=== PATIENT | female | born 1950 | race Caucasian/White ===

== ENCOUNTER 2018-08-22 16:12 | Inpatient (IN) | payer MEDICARE, BC ==
[~2018-08-22 16:12] MED LIST: ISOVUE-370 76%-LOCM 1 ML ONE
[2018-08-22 18:12] VITALS: BMI 19.6
[2018-08-22] MEDS ORDERED: Ondansetron PF 4 MG/2 ML Vial IVP PRN (19:37)
[2018-08-22] MEDS ORDERED: Benzonatate 100 MG CAP PO PRN (19:38)
[2018-08-22] MEDS ORDERED: Bisacodyl 5 MG TAB PO PRN (19:38)
[2018-08-22] MEDS ORDERED: cefTRIAXone\\ROCEPHIN 2 GM in Sodium Chloride 0.9% 100 ML IVPB SCH (20:00)
[2018-08-22] MEDS: cefTRIAXone\\ROCEPHIN 1 GM in Sodium Chloride 0.9% 100 ML IVPB SCH (20:14)
[2018-08-22] MEDS: Acetaminophen 500 MG TAB PO PRN (20:15)
[2018-08-22 20:24] LABS: ALT (SGPT) 9 U/L (8-55); AST (SGOT) 18 U/L (5-34); Alkaline Phosphatase 146 U/L (40-150); Anion Gap 18 mmol/L (10-20); BUN (Urea Nitrogen) 11 mg/dL (9.8-20.1); Band 27 % (5-11); Bilirubin, Total 0.7 mg/dL (0.2-1.2); Calc. Creatinine Clearance 72 mL/min (70-130); Calcium 9.7 mg/dL (7.8-10.44); Carbon Dioxide 21 mmol/L (23-31); Chloride 101 mmol/L (98-107); Estimated GFR-MDRD Greater than 90; Globulin 3.3 g/dL (2.4-3.5); Glucose 127 mg/dL (80-115); Hemoglobin 13.3 g/dL (12.0-16.0); Lymphocytes 13 % (21-51); MDiff Complete? YES; Magnesium 1.8 mg/dL (1.6-2.6); Mean Corpuscular Hemoglobin 28.2 pg (27.0-31.0); Mean Corpuscular Volume 88.2 fL (78.0-98.0); Mean Platelet Volume 7.3 fL (7.4-10.4); Monocytes 2 % (0-10); Neutrophil 58 % (42-75); Platelet Count 384 thou/uL (130-400); Platelet Morphology Comment Appears Adequate; Potassium 4.5 mmol/L (3.5-5.1); Protein, Total 7.3 g/dL (6.0-8.3); RBC Distribution Width 12.6 % (11.5-14.5); Red Blood Cell (RBC) Count 4.72 mill/uL (4.20-5.40); Sodium 135 mmol/L (136-145); White Blood Cell (WBC) Count 13.8 thou/uL (4.8-10.8)
[2018-08-22 20:45] LABS: Bilirubin Small (Negative); Blood, Urine Trace (Negative); Clarity CLEAR (Clear); Glucose, Urine (Dipstick) Negative (Negative); Leukocyte Small (Negative); Nitrite Negative (Negative); Protein, Urine (Dipstick) Negative (Neg-Trace); Specific Gravity, Urine 1.022 (1.002-1.036); pH, Urine 5.5 (5.0-9.0)
[2018-08-22] MEDS ORDERED: Lactated Ringer's 1,000 ML IV SCH (20:45)
[2018-08-22 20:47] LABS: Bacteria/HPF None Seen HPF (None Seen); Hyaline Casts/LPF 7-10 HYALINE CAST LPF (0-3 Hyaline)
[2018-08-22 20:50] LABS: Manual Microscopic Reviewed? No Path Casts Seen; Pathc Cast-AUWi Flag 2.58 (0-2.49)
[2018-08-22] MEDS ORDERED: Azithromycin 500 MG in Sodium Chloride 0.9% 250 ML 250 ML IVPB SCH (21:00)
[2018-08-22 21:01] LABS: Legionella Urinary Ag Negative (Negative); Strep pneumo Urine Ag NEGATIVE (NEGATIVE)
--- NOTE | 2018-08-22 22:38 | CT ---
CT angiogram thorax with contrast: (CTA pulmonary angiogram) HISTORY: 67-year-old female with dyspnea. TECHNIQUE: IV injection of iodinated contrast. Scan acquisition timing attempted to coincide with iodinated contrast bolus reaching maximal density in pulmonary arteries. 3-D MIP reconstructions. FINDINGS: There is a large, approximately 7.5 x 6.5 x 7.5 cm right parahilar pulmonary mass occupying and envel oping the entire right hilum, much of the central portion of the right upper lobe, causing complete occlusion of the right mainstem bronchus approximately 1 cm from the parth. The mass completely occl udes and thromboses the entire right upper lobe pulmonary artery and all of its branches there are multiple satellite irregular pulmonary nodules and surrounding interstitial pulmonary densities. Ther e is total atelectasis of the right lower lobe. There is no pulmonary thromboembolism involving the right lower lobe pulmonary artery and its branches, bilateral main pulmonary arteries, pulmonary trun k, or any of the left pulmonary artery branches. No pleural effusion. The right lower lobe total atelectasis results in cardiomediastinal shift to the right. No pneumothorax. Left lung is clear. No cardiomegaly. There is mediastinal lymphadenopathy including subcarinal lymph nodes at midline. A PET scan is recommended to determine whether or not there are malignant lymph nodes reaching the cont ralateral left side. Dr. Marrero discussed all of the relevant findings by telephone with nurse Real Ballard at 10:29 PM, then w [facility] resident Dr. Solo Leon at 10:31 PM, on 08/22/2018. IMPRESSION: 1. Large right hilar and parahilar upper lobe lung mass (evidence for primary lung cancer) 2. It is totally occluding the right lower lobe bronchus resulting in total atelectasis of right lowe r lobe. 3. It is completely occluding the right upper lobe pulmonary artery and all of its branches. 4. Multiple satellite metastatic pulmonary nodules in the right upper lobe. 5. Interstitial infiltrate surrounding the large right pulmonary mass. One possibility is lymphangiti c carcinomatosis. 6. Mediastinal lymphadenopathy.
[2018-08-22] MEDS ORDERED: Dexamethasone 4 mg/ml Vial SLOW IVP SCH (23:30)
[2018-08-23] MEDS: Lactated Ringer's 1,000 ML IV SCH ×4 (00:35→12:42)
--- NOTE | 2018-08-23 01:25 | PDOC.FPRHP ---
- History of Present Illness Chief Complaint: SOB History of Present Illness: Ms Burnett is a 67yo female with pmh hypothyroidsim, tobacco abuse, JOSEPH, prediabetes who was directly admitted from [facility] clinic for hypoxia. Wednesday started to have SOB with minimal activity. Pt was recently diagnosed with bronchitis 08/12/18 and treated with cefdinir and albuterol inhaler. Has been using q4h, some relief. Reports chills, fatigue, anorexia, sore throat, dry cough. She also reports some chest discomfort that is substernal and R sided rated 7/10 when taking a deep breath in. No other transforming factors. PCP: [facility]IL (Dr Monae) ED Course: n/a - direct admit - Allergies/Adverse Reactions Allergies Allergy/AdvReac Type Severity Reaction Status Date / Time ciprofloxacin [From Cipro] Allergy Severe Anxiety Verified 08/22/18 18:24 - Home Medications Medication Instructions Recorded Confirmed Type Albuterol Sulfate [Ventolin Hfa] 2 puff INH Q4H PRN 08/22/18 08/22/18 History Citalopram [CeleXA] 10 mg PO HS 08/22/18 08/22/18 History Cyanocobalamin 1000 MCG/ML VIA 1,000 mcg IM Q28D 08/22/18 08/22/18 History [Vitamin B-12] Levothyroxine Sodium 88 mcg PO DAILY 08/22/18 08/22/18 History Pantoprazole [Protonix] 40 mg PO DAILY 08/22/18 08/22/18 History - History PMHx: Tobacco abuse, prediabetes, solitary lung nodule, eosinophilic gastritis, hiatal hernia, JOSEPH, B12 deficiency anemia, Hypothyroidism PSHx: Appendectomy (1977), Hysterectomy (1977), B/l Mastectomy (1978), B/l salpingo-oophrectomy (1981), Anal fistula repair FHx: Mother- Crohns & Ovarian cancer Social: Retired [place]. Smokes 1/2ppd, no alcohol or drugs - Review of Systems General: reports: fatigue. denies: fever/chills Eyes: denies: eye pain, vision changes ENT: denies: nasal congestion, rhinorrhea Respiratory: reports: shortness of breath. denies: congestion Cardiovascular: reports: chest pain. denies: edema Gastrointestinal: denies: nausea, vomiting Genitourinary: denies: incontinence, dysuria Skin: denies: rashes, lesions Musculoskeletal: denies: tenderness, stiffness Neurological: denies: syncope, seizure Psychological: denies: anxiety, depression - Vital signs VITALS IN CLINIC PRIOR TO ADMIT: 88% on RA, HR 130, T 101.5 - Physical Exam Constitutional: NAD, awake, alert and oriented HEENT: EOMI, grossly normal vision, grossly normal hearing Neck: supple, trachea midline Chest: no-tender to palpation Heart: normal S1/S2, other (tachycardic) Lungs: no rales/rhonchi, no wheezing -Lungs: Decreased breath sounds/dullness to percussion/increased egophany in whole right lung field as compared to left Abdomen: soft, non-tender Musculoskeletal: normal structure, normal tone Neurological: no focal deficit, normal sensation Skin: good turgor, capillary refill <2 seconds Heme/Lymphatic: no purpura, no petechia Psychiatric: normal mood and affect, good judgment and insight FMR H&P: Results - Labs Result Diagrams: 08/22/18 19:51 08/22/18 19:51 Lab results: WBC 13.8 thou/uL (4.8-10.8) H 08/22/18 19:51 Hgb 13.3 g/dL (12.0-16.0) 08/22/18 19:51 Hct 41.6 % (36.0-47.0) 08/22/18 19:51 MCV 88.2 fL (78.0-98.0) 08/22/18 19:51 Plt Count 384 thou/uL (130-400) 08/22/18 19:51 Band Neuts % (Manual) 27 % (5-11) H 08/22/18 19:51 Sodium 135 mmol/L (136-145) L 08/22/18 19:51 Potassium 4.5 mmol/L (3.5-5.1) 08/22/18 19:51 Chloride 101 mmol/L (98-107) 08/22/18 19:51 Carbon Dioxide 21 mmol/L (23-31) L 08/22/18 19:51 BUN 11 mg/dL (9.8-20.1) 08/22/18 19:51 Creatinine 0.64 mg/dL (0.6-1.1) 08/22/18 19:51 Glucose 127 mg/dL (80-115) H 08/22/18 19:51 Calcium 9.7 mg/dL (7.8-10.44) 08/22/18 19:51 Total Bilirubin 0.7 mg/dL (0.2-1.2) 08/22/18 19:51 AST 18 U/L (5-34) 08/22/18 19:51 ALT 9 U/L (8-55) 08/22/18 19:51 Alkaline Phosphatase 146 U/L (40-150) 08/22/18 19:51 B-Natriuretic Peptide 76.1 pg/mL (0-100) 08/22/18 19:51 Serum Total Protein 7.3 g/dL (6.0-8.3) 08/22/18 19:51 Albumin 4.0 g/dL (3.4-4.8) 08/22/18 19:51 Urine Ketones 40 mg/dL (Negative) H 08/22/18 20:24 Urine Blood Trace (Negative) H 08/22/18 20:24 Urine Nitrite Negative (Negative) 08/22/18 20:24 Ur Leukocyte Esterase Small (Negative) H 08/22/18 20:24 Urine RBC 4-6 HPF (0-3) 08/22/18 20:24 Urine WBC 7-10 HPF (0-3) H 08/22/18 20:24 Ur Squamous Epith Cells 11-20 HPF (0-3) H 08/22/18 20:24 Urine Bacteria None Seen HPF (None Seen) 08/22/18 20:24 FMR H&P: A/P - Problem List (1) Hypoxia Current Visit: Yes Status: Acute Code(s): R09.02 - HYPOXEMIA (2) Anemia Current Visit: Yes Status: Acute Code(s): D64.9 - ANEMIA, UNSPECIFIED (3) Acute respiratory failure with hypoxia Current Visit: No Status: Acute Code(s): J96.01 - ACUTE RESPIRATORY FAILURE WITH HYPOXIA (4) JOSEPH (obstructive sleep apnea) Current Visit: No Status: Acute Code(s): G47.33 - OBSTRUCTIVE SLEEP APNEA ( ADULT) (PEDIATRIC) (5) Tobacco abuse Current Visit: No Status: Acute Code(s): Z72.0 - TOBACCO USE - Plan Hypoxia 2/2 pneumonia vs. malignancy vs. PE A- Physical exam is concerning for possible mass vs effusion in R lung. P- CTA chest PE protocol -procal, CBC, CMP, Mg, BMP, trops -UCx, BCx JOSEPH -bring home cpap Hypothyroid -home meds diverticulosis -MD aware pernicious anemia -home B12 CODE: DNAR FMR H&P: Upper Level - Pertinent history Patient was seen and examined and history and physical discussed with Dr Cohn on 08/22/2018. Note had been originally started in a "pre-in" visit. Since her admission is not under the "pre-in," a note was consequently delayed in opening and completion until 08/23/2018. 67 yr old female with PMH of 20+ pack year tobacco use, COPD, hypothyroidism who presents for progressively worsening dyspnea and central chest pain over the last 3 days. Patient reports the chest pain has been pretty constant and she got the most relief since being on oxygen. The pain is worse with deep inspiration and feels the worst on the right side of her chest. She has been using albuterol at home without much relief. Cough just started and is nonproductive. Denies fever at home. She was seen by Dr. Ravi in the clinic this afternoon and sent to the hospital. Her temp in clinic was 101.5. She was satting 88% on RA with a heart rate of 130. - Pertinent findings Gen: patient lying in bed without acute distress. She is pleasant Mouth: slightly dry mucous membranes, no pharyngeal erythema Neck: no cervical lymphadenopathy or thyromegaly Heart: Tachy and regular rhythm, no murmurs, rubs, gallops. Lungs: good airmovement without wheezing or rhonchi in left upper and lower lobe. Diminished/distant breath sounds in RUL/RLL but worse in RLL. E to A egophany in RLL. no rhonchi or wheezing. Abd: soft nontender. EXT: no edema in BLE, no pain or asymmetry in BLE. EKG: sinus tachycardia, QTc 435, no acute ST changes. CTA: pending WBC: 13.8 Trop: NEG BNP: 76.1 - Plan Date/Time: 08/23/18 Bere5 I, [Madeleine Carr], have evaluated this patient and agree with findings/plan as outlined by sourcing intern resident. Pertinent changes/additions are listed here. 67 yr old female with hx of COPD and tobacco abuse with fever, tachycardia, worsening dyspnea, and hypoxia. Sepsis 2/2 Community Acquired PNA -Fever to 101.5, HR 130, WBC 13.8. -diminished breath sound in RLL -pending CTA but clinically appears to be PNA -certainly high concern for PE, pending CTA -will initiate 1 lt bolus LR followed by LR @ 125 -initiate azithromycin and ceftriaxone -legionella and strep pneumo antigen urine -Procal pending -cont to monitor on tele hx of tobacco abuse -patient quit 2 months ago. hx of solitary lung nodule -patient reports that she has a lung nodule for years but has been unchanged hypothyroidism -restart home meds prediabetes -last A1C in office on 08/12/2018 was 6.1 -follow up outpatient for mgmt b12 deficiency -last B12 wnl -receives monthly B12 injection PCP: Dr. Monae Dispo: admit to inpatient telemetry and likely will require 2-3 midnights unless clinical course significantly changes. DVT ppx: SCDs and lovenox diet: regular Addendum - Attending - Attending Attestation Date/Time: 08/25/18 0033 I personally evaluated the patient and discussed the management with Dr. Leon on 08/22/18. I agree with the History, Examination, Assessment and Plan documented above with any addition or exceptions noted below. 67 y.o. WF with h/o hypothyroidsim, tobacco abuse, JOSEPH, prediabetes admitted with dyspnea, subjective fever, respiratory failure with hypoxia, with decreased lung sounds on Right lower lung. CT angio shows large compressive Right perihilar mass.
--- NOTE | 2018-08-23 04:43 | PDOC.EVN ---
Event Note - Event Note Event Note: Late entry note. The below took place on 08/22/2918 around 2245. Spoke with radiologist regarding patient's newly found lung mass. Called Dr. Estevez for recommendations and he advised to give nebulized bronchodilator treatments, decadron, and make patient NPO at Midnight. Also cont abx. Patient asleep when went to discuss findings. Will discuss in the morning. Advised nurse to call if patient wakes and asks for results.
[2018-08-23] MEDS: Levothyroxine Sodium 88 MCG TAB PO SCH (08:26)
[2018-08-23] MEDS ORDERED: Cyanocobalamin 1000 MCG/ML VIAL IM SCH (09:00)
[2018-08-23] MEDS ORDERED: Fentanyl 100 MCG/2 ML VIAL ONE (09:21)
[2018-08-23] MEDS ORDERED: Midazolam HCl 2 mg/2 ml Vial ONE ×2 (09:21→09:24)
[2018-08-23] MEDS ORDERED: Lidocaine 1% (PF) 30 ML VIAL ONE ×3 (09:24→10:32)
[2018-08-23] MEDS ORDERED: Midazolam HCl 5 mg/5 ml Vial ONE (09:24)
--- NOTE | 2018-08-23 09:29 | PDOC.FM ---
- Subjective Subjective: Patient doing well this AM. No significant events. Dr. Carr discussed results of CT scan and plan for possible bronch this AM. Patient was grateful for that conversation. She is feeling better this AM but still requiring O2. She states she has gradually been getting short of breath over the past 2 weeks. She lives at home with a cousin who is her mPOA. - Objective MAR Reviewed: Yes Vital Signs & Weight: Vital Signs (12 hours) Temp Pulse Resp BP Pulse Ox 08/23/18 08:20 99.1 F 89 18 106/64 94 L 08/23/18 07:17 80 14 08/23/18 05:00 98.3 F 84 18 110/54 L 94 L 08/23/18 00:05 96 20 92 L 08/23/18 00:00 99.3 F 75 18 105/57 L 94 L Weight Weight 55.248 kg I&O: 08/22/18 08/23/18 08/24/18 06:59 06:59 06:59 Intake Total 1770 Output Total 800 Balance 970 Result Diagrams: 08/22/18 19:51 08/22/18 19:51 EKG Reviewed by me: Yes Radiology Reviewed by me: Yes Phys Exam - Physical Examination Constitutional: NAD HEENT: moist MMs Decreased breath sounds in RLL Requiring O2 Cardiovascular: RRR 2/6 systolic murmur Gastrointestinal: soft, non-tender, no distention Musculoskeletal: no edema, pulses present Neurological: non-focal, moves all 4 limbs Psychiatric: normal affect, A&O x 3 Skin: no rash, cap refill <2 seconds Dx/Plan (1) Pneumonia Code(s): J18.9 - PNEUMONIA, UNSPECIFIED ORGANISM Status: Acute (2) Mass of upper lobe of right lung Code(s): R91.8 - OTHER NONSPECIFIC ABNORMAL FINDING OF LUNG FIELD Status: Acute (3) Anemia Code(s): D64.9 - ANEMIA, UNSPECIFIED Status: Acute (4) Acute respiratory failure with hypoxia Code(s): J96.01 - ACUTE RESPIRATORY FAILURE WITH HYPOXIA Status: Acute (5) JOSEPH (obstructive sleep apnea) Code(s): G47.33 - OBSTRUCTIVE SLEEP APNEA (ADULT) (PEDIATRIC) Status: Acute (6) Tobacco abuse Code(s): Z72.0 - TOBACCO USE Status: Acute - Plan Plan: 67 yr old female with hx of COPD and tobacco abuse with fever, tachycardia, worsening dyspnea, and hypoxia. RUL lung mass, unknown etiology -likely malignant given smoking history and additional findings on CTA mentioned below -pulm consulted; appreciate recs -plan for bronchoscopy this AM, will likely take several days to get path results -continue steroids, antibiotics -O2 PRN Sepsis likely 2/2 post-obstructive PNA -Fever to 101.5, HR 130, WBC 13.8. -diminished breath sound in RLL -CTA shows 7.5 x 6.5 x 7.5 cm RUL mass totally occluding RLL bronchus/RUL pulm aa and all branches. Total atelectasis of RLL. RUL mets. Interstitial infiltrate surrounding lung mass. Mediastinal LAD. No PE -continue IVF -continue azithromycin and ceftriaxone (08/22) -legionella and strep pneumo antigen urine neg -Procal negative at <0.5 -cont to monitor on tele hx of tobacco abuse -patient quit 2 months ago. -at risk for malignancy hx of solitary lung nodule -patient reports that she has a lung nodule for years but has been unchanged -CTA shows new findings as above hypothyroidism -continue home meds prediabetes -last A1C in office on 08/12/2018 was 6.1 -follow up outpatient for mgmt b12 deficiency -last B12 wnl -receives monthly B12 injection Dispo: Bronchoscopy this AM. Monitor respiratory status. Await results of bronch. Continue abx and steroids. Addendum - Attending - Attending Attestation Date/Time: 08/23/18 1430 I personally evaluated the patient and discussed the management with Dr. Mckenna I agree with the History, Examination, Assessment and Plan documented above with any addition or exceptions noted below- Patinet back from bronch. Feeling better but still getting SOB with speaking even. Afebrile VSS. A/P: 1) Obstructive lung mass - s/p bronch. Appreciate pulmonary recs/assistance. Pathology pending. Continue nebs, O2, abx. Will consult oncology. 2) Pneumonia - continue abx. 3) JOSEPH- continue CPAP
[2018-08-23] MEDS ORDERED: Benzocaine 20% Spray 60 ML CAN ONE (09:31)
[2018-08-23] MEDS ORDERED: EPINEPHrine 1 MG/10 ML Abboject SYRINGE ONE ×2 (10:23→15:17)
[2018-08-23] MEDS: Dexamethasone 4 mg/ml Vial SLOW IVP SCH ×2 (12:45→18:13)
[2018-08-23] MEDS ORDERED: Lidocaine 2% PF 5 ML VIAL ONE (15:17)
[2018-08-23] MEDS ORDERED: Azithromycin 250 MG in Syringe 0 ML IVPB SCH (19:45)
[2018-08-23] MEDS: Citalopram 10 MG TAB PO SCH (19:46)
[2018-08-23] MEDS: cefTRIAXone\\ROCEPHIN 1 GM in Sodium Chloride 0.9% 100 ML IVPB SCH (19:46)
[2018-08-24] MEDS: Dexamethasone 4 mg/ml Vial SLOW IVP SCH ×2 (00:14→05:24)
[2018-08-24] MEDS: Lactated Ringer's 1,000 ML IV SCH (07:50)
--- NOTE | 2018-08-24 08:09 | RAD ---
UPRIGHT PORTABLE CHEST 1 VIEW: Date: 08/24/18 HISTORY: Shortness of breath. History of breast cancer. COMPARISON: 08/22/18 CT angiogram chest. FINDINGS: There is almost total opacification of the right hemithorax with very minimal aerated lung in the rig ht upper lobe, showing worsening when compared to the 08/22/18 CT, indicating some progressive right- sided volume loss. Left lung is clear. Heart size is normal. IMPRESSION: Worsening right-sided volume loss with almost total abnormal opacification of the right hemithorax. S light hyperinflation left chest. POS: SWETA
[2018-08-24] MEDS: Levothyroxine Sodium 88 MCG TAB PO SCH (08:11)
--- NOTE | 2018-08-24 08:12 | OP ---
DATE OF PROCEDURE: 08/23/2018 PROCEDURE PERFORMED: Bronchoscopy with biopsy. INDICATION: Right lung mass. POSTBRONCHOSCOPY DIAGNOSIS: Extensive nodular friable mucosa arising from the right mainstem bronchus all the way to the right bronchus intermedius with complete occlusion of the right upper lobe bronchus, right middle lobe orifice, and marked nodularity and friability of the entire basilar segments, unable to visualize any of the subsegments consistent with extensive carcinoma involving the entire right lung starting from the level of the parth laterally. DESCRIPTION OF PROCEDURE: After informed consent, the patient received nebulized DuoNeb with 4 mL of 4% lidocaine. The right nostril was prepped with lidocaine jelly. Cetacaine spray was applied to the back of the throat. The flexible Olympus video bronchoscope 2 mm was passed via the left nostril. Pharynx, hypopharynx and vocal cords were visualized and unremarkable. On entering the trachea, parth was surprisingly sharp. Right lung initially inspected showed extensive nodular friable mucosa arising from the right mainstem bronchus on the medial wall all the way down to the basilar segments with complete occlusion of the right upper lobe bronchus, complete occlusion of the right middle lobe bronchus, and extensive friable nodular mucosa with marked narrowing and occlusion of the basilar segments. Unable to identify any of the basilar segments. There was a small pinpoint hole corresponding to the anterior basilar segments. The mucosa bled to touch. The area was lavaged with normal saline. Thereafter, the marked nodularity corresponding to the right lower lobe bronchus was biopsied multiple times and pressure obtained several times. There was some brisk bleeding, which was controlled with epinephrine with total of 1:10,000 epinephrine, total of 6 mL. The washings will be sent for cytology, AFB smear and culture, fungal smear and culture, routine Gram stain, and C and S. The biopsy will be sent for histopathology. Brushing was sent for cytology. The left lung was inspected thereafter, which showed the left upper lobe flow to be unremarkable. Bronchoscope was removed to the level of the parth. Both lungs were reinspected. The right lung was again lavaged with normal saline until completely clear. No additional bleeding was seen. Bronchoscope was removed. The patient tolerated the procedure well. BRIEF DISCHARGE NOTE: The patient tolerated the procedure well. Results will be made available to the patient and family. Further recommendation as above. Job ID: [id number]
--- NOTE | 2018-08-24 09:37 | PRG ---
DATE OF SERVICE: 08/24/2018 SUBJECTIVE: This morning, she is still having difficulty breathing. X-ray shows marked volume loss in the right lung consistent with her bronchoscopy findings, extensive right lower lobe atelectatic changes, extensive upper lobe and bronchus intermedius narrowing with abdominal mucosa. OBJECTIVE: VITAL SIGNS: Sats are 100% on 3 L, respiratory rate 18, temperature 98, and blood pressure 120/54. CHEST: Decreased breath sounds in right lung. Left unremarkable. CARDIAC: Normal S1 and S2. No gallops. ABDOMEN: No masses. ASSESSMENT: Extensive right lung cancer with marked volume loss. PLAN: P.o. prednisone. Await biopsy results. Disposition as per Oncology. Job ID: [id number]
--- NOTE | 2018-08-24 10:48 | PDOC.FM ---
- Subjective Subjective: Patient with worsening shortness of breath. She is in good spirits despite news of lung mass. She denies chest pain, N/V. She is willing to consider all options at this point in time and is open to hearing what oncology has to say. - Objective MAR Reviewed: Yes Vital Signs & Weight: Vital Signs (12 hours) Temp Pulse Resp BP Pulse Ox 08/24/18 07:46 98.6 F 91 18 112/54 L 100 08/24/18 07:45 100 08/24/18 07:02 70 12 08/24/18 04:00 73 142/66 H Weight Weight 55.248 kg I&O: 08/23/18 08/24/18 08/25/18 06:59 06:59 06:59 Intake Total 1770 2490 Output Total 800 1600 Balance 970 890 Result Diagrams: 08/22/18 19:51 08/22/18 19:51 Radiology Reviewed by me: Yes Phys Exam - Physical Examination Constitutional: NAD HEENT: moist MMs Decreased breath sounds in right lung field Short of breath with conversation Cardiovascular: RRR Gastrointestinal: soft, no distention Musculoskeletal: no edema, pulses present Neurological: non-focal, moves all 4 limbs Psychiatric: normal affect, A&O x 3 Skin: no rash, cap refill <2 seconds Dx/Plan (1) Pneumonia Code(s): J18.9 - PNEUMONIA, UNSPECIFIED ORGANISM Status: Acute (2) Mass of upper lobe of right lung Code(s): R91.8 - OTHER NONSPECIFIC ABNORMAL FINDING OF LUNG FIELD Status: Acute (3) Anemia Code(s): D64.9 - ANEMIA, UNSPECIFIED Status: Acute (4) Acute respiratory failure with hypoxia Code(s): J96.01 - ACUTE RESPIRATORY FAILURE WITH HYPOXIA Status: Acute (5) JOSEPH (obstructive sleep apnea) Code(s): G47.33 - OBSTRUCTIVE SLEEP APNEA (ADULT) (PEDIATRIC) Status: Acute (6) Tobacco abuse Code(s): Z72.0 - TOBACCO USE Status: Acute - Plan Plan: 67 yr old female with hx of COPD and tobacco abuse with fever, tachycardia, worsening dyspnea, and hypoxia. RUL lung mass s/p biopsy, likely malignancy -likely malignant given smoking history and additional findings on CTA mentioned below -pulm consulted; appreciate recs -Path results pending -continue steroids (transition to PO) -O2 with goal 88-95% O2 sat -Onc consulted; appreciate recs Sepsis likely 2/2 post-obstructive PNA, ruled out -Fever to 101.5, HR 130, WBC 13.8. -diminished breath sound in RLL; all likely related to malignancy -CTA shows 7.5 x 6.5 x 7.5 cm RUL mass totally occluding RLL bronchus/RUL pulm aa and all branches. Total atelectasis of RLL. RUL mets. Interstitial infiltrate surrounding lung mass. Mediastinal LAD. No PE -D/c fluids -D/c azithromycin and ceftriaxone (08/22-08/23) -legionella and strep pneumo antigen urine neg -Procal negative at <0.5 hx of tobacco abuse -patient quit 2 months ago. -at risk for malignancy hx of solitary lung nodule -patient reports that she has a lung nodule for years but has been unchanged -CTA shows new findings as above hypothyroidism -continue home meds prediabetes -last A1C in office on 08/12/2018 was 6.1 -follow up outpatient for mgmt b12 deficiency -last B12 wnl -receives monthly B12 injection Dispo: S/p bronchoscopy. Pending path results and oncology recs. Addendum - Attending - Attending Attestation Date/Time: 08/25/18 [id number] I personally evaluated the patient and discussed the management with Dr. Mckenna on 08/24/2018 I agree with the History, Examination, Assessment and Plan documented above with any addition or exceptions noted below- Patient still with SOB but feeling a little better. Afebrile VSS. A/P: 1) Probable lung cancer - pathology pending ; oncology consulted. Continue current meds.
[2018-08-24] MEDS ORDERED: Enoxaparin Sodium 40 MG/0.4 ML SYRINGE SC SCH (12:30)
--- NOTE | 2018-08-24 13:45 | CT ---
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 Liver: 0.6 cm diameter focal low attenuation density in the right lobe of the liver, too small to def initively characterize. Gallbladder:Unremarkable. Pancreas:Unremarkable Spleen:Unremarkable. Adrenal glands:Unremarkable. Kidneys:No acute obstruction. Several very small renal low-attenuation foci, too small to tato alva.No solid or cystic mass. No evidence for bowel obstruction. No CT evidence for acute appendicitis. The urinary bladder is unremarkable. No abscess, adenopathy, or abnormal fluid collection within the abdomen or pelvis. IMPRESSION: Extensive confluent opacity changes in the right lower lobe. Too small to characterize low-attenuatio n focus in the right lobe of the liver. Too small to characterize low-attenuation foci in the kidneys. No adenopathy or evidence for metastasis.
[2018-08-24] MEDS ORDERED: ISOVUE-370 76%-LOCM 1 ML ONE (14:39)
[2018-08-24] MEDS ORDERED: Gadobenate Dimeglumine 529 MG/1 ML (20ML VIAL) ONE (14:43)
[2018-08-24] MEDS ORDERED: PROPOFOL 200 MG/20 ML VIAL ONE (14:45)
--- NOTE | 2018-08-24 15:51 | MRI ---
MRI BRAIN WITH AND WITHOUT CONTRAST: INDICATIONS: Small cell lung cancer. Evaluate for metastases. FINDINGS: The ventricular system is normal in size. The septum pellucidum and third ventricle are midline. Th ere is no acute territorial infarction, intracranial mass effect, midline shift, or hemorrhage suscep tibility. No enhancing intraaxial lesions are evident. There is mild chronic ischemic disease. A p artially empty sella is present. IMPRESSION: No intracranial metastatic disease evident. POS: C
[2018-08-24] MEDS ORDERED: CEFAZOLIN 2 GM in Premix Bag 1 BAG IVPB SCH (16:30)
--- NOTE | 2018-08-24 16:30 | CON ---
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 HISTORY OF PRESENT ILLNESS: Ms. Burnett is a pleasant 67-year-old female with a [id number] history of smoking, who saw her primary care approximately 2 weeks ago for cough and was treated for bronchitis. She did initially improve, but then had worsening shortness of breath, so presented to the emergency room for evaluation. A CT angio of the chest revealed a large right parahilar pulmonary mass, measuring 7.5 x 6.5 x 7.5 cm. It enveloped the entire right hilum and was causing occlusion of the right mainstem bronchus, it completely occluded the right upper lobe pulmonary artery in all of its branches. There was also mediastinal lymphadenopathy. She had multiple satellite nodules in the right upper lobe. Dr. Estevez was consulted and performed a bronchoscopy. Preliminary results are consistent with small cell lung cancer. The patient has not lost any significant weight over the last several months, approximately 5 pounds. She has lost over 60 pounds over 3 years with a gluten- free diet. She denies any hemoptysis, hoarseness, or dysphagia. Quit smoking a couple of weeks ago. She does have fatigue and a decrease in ability to perform her usual daily activities. PAST MEDICAL HISTORY: 1. Hypothyroidism. 2. Pernicious anemia. 3. Tobacco use. 4. Obstructive sleep apnea. 5. Gastroesophageal reflux disease. PAST SURGICAL HISTORY: 1. Prophylactic bilateral mastectomy in 1978. 2. Appendectomy. 3. Hysterectomy. 4. Bilateral salpingo-oophorectomy. ALLERGIES: TO CIPRO. HOME MEDICATIONS: 1. Levothyroxine 88 mcg daily. 2. Protonix 40 mg daily. 3. B12 injections monthly. 4. Celexa 10 mg daily. 5. Ventolin inhaler daily. FAMILY HISTORY: Mother had ovarian cancer and Crohn disease. SOCIAL HISTORY: , lives with her cousin, [id number] history of smoking. No alcohol or illicit drug use. REVIEW OF SYSTEMS: A 10-point review of systems is negative except for noted in HPI. PHYSICAL EXAMINATION: VITAL SIGNS: Temperature 99.0, pulse is 84, respiratory rate 18, BP is 108/55, and she is 97% on 3 L. GENERAL: A well-developed, well-nourished female, in no acute distress. HEENT: Normocephalic and atraumatic. Pupils are equal and reactive to light. NECK: Supple without mass. CV: Regular rate and rhythm. LUNGS: Diminished in right side. ABDOMEN: Soft and nontender. There is no organomegaly. Bowel sounds are positive. EXTREMITIES: No clubbing, cyanosis, or edema. SKIN: No rash. HEMATOLOGIC: No petechiae or purpura. NEUROLOGIC: Nonfocal. LYMPHATIC: No palpable lymphadenopathy. PSYCHIATRIC: She is alert and oriented. PERTINENT LABS AND X-RAYS: Current WBCs are 13.8, hemoglobin 13.3, hematocrit 41.6, and platelet count is 384,000, 58% neutrophils, 27% bands, 13% lymphocytes. Sodium is 135, potassium 4.5, chloride 101, CO2 is 21, BUN is 11, creatinine 0.64, calcium is 9.7, magnesium 1.8, bilirubin 0.7, AST is 18, ALT is 9, and alkaline phosphatase is 146. Troponin is negative. BNP is 76. Serum total protein 7.3, albumin 4.0 , globulin 33. Urine is negative for bacteria, pneumonia, negative, radiology per HPI. ASSESSMENT: Probable small cell lung cancer. DISCUSSION: The case was discussed with Dr. Chahal. We will wait for final confirmation of small cell lung cancer in anticipation of inpatient chemotherapy. We will transfer the patient to Oncology. Plan to complete staging with a brain MRI and a CT of her abdomen. This was discussed in detail with the patient, who agrees with the plan. Thank you for the consult. We are happy to take care of this nice lady. Job ID: [id number] MTDD
[2018-08-24] MEDS: Mometasone/Formoterol 120 PUFF INHALER INH SCH (18:16)
[2018-08-24] MEDS: Acetaminophen 500 MG TAB PO PRN (18:18)
[2018-08-24] MEDS: Citalopram 10 MG TAB PO SCH (21:55)
[2018-08-24] MEDS: cefTRIAXone\\ROCEPHIN 1 GM in Sodium Chloride 0.9% 100 ML IVPB SCH (21:56)
--- NOTE | 2018-08-24 22:58 | HP ---
HISTORY OF PRESENT ILLNESS: Ava Burnett is a 67-year-old female discovered to have a lung cancer with encasement of the pulmonary artery and Dr. Chahal asked me to see her regarding placement of a MediPort to initiate antineoplastic chemotherapy access tomorrow. We will plan placement of MediPort tomorrow. She can continue her prophylactic subcutaneous Lovenox. ALLERGIES: CIPRO. SOCIAL HISTORY: Tobacco abuse in the past. Cessation several months ago. Alcohol, rarely. MEDICATIONS: 1. Ventolin inhaler. 2. Celexa. 3. Protonix. 4. Vitamin B12. PAST SURGICAL HISTORY: Anal fissure, right mastectomy and reconstruction using the implant for fibrocystic disease, hysterectomy, appendectomy. PAST MEDICAL HISTORY: COPD, lung cancer, eosinophilic gastritis, hiatal hernia, sleep apnea, B12 deficiency, hypothyroidism. PHYSICAL EXAMINATION: VITAL SIGNS: Height 5 feet 6 inches, weight 121 pounds, 19 BMI. Heart rate 83, respiratory rate . HEAD, EARS, EYES, NOSE, AND THROAT: Unremarkable. LUNGS: Clear to consultation. CARDIAC: Regular rate and rhythm without murmur or gallop. ABDOMEN: Soft, nontender. EXTREMITIES: Unremarkable. 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 We will plan placement of MediPort tomorrow. Risks and benefits discussed. Questions were answered. Job ID: [id number]
[2018-08-25] MEDS: Mometasone/Formoterol 120 PUFF INHALER INH SCH ×2 (07:46→18:34)
[2018-08-25] MEDS ORDERED: Lactated Ringer's 1,000 ML IV SCH (08:00)
[2018-08-25] MEDS: predniSONE 20 MG TAB PO SCH (08:29)
[2018-08-25] MEDS: Levothyroxine Sodium 88 MCG TAB PO SCH (08:29)
[2018-08-25] MEDS ORDERED: Enoxaparin Sodium 40 MG/0.4 ML SYRINGE SC SCH (09:00)
--- NOTE | 2018-08-25 09:21 | PDOC.FM ---
- Subjective Subjective: Patient doing well this AM. No significant overnight events. Patient has spoken to Onc and Gen surg. Patient has plans for Mediport this AM with Dr. Gipson and chemo during this hospitalization. Patient reports that her shortness of breath is a little improved compared to yesterday, but she still gets winded at rest. She denies chest pain, palpitations, N/V. - Objective MAR Reviewed: Yes Vital Signs & Weight: Vital Signs (12 hours) Temp Pulse Resp BP Pulse Ox 08/25/18 08:33 97.8 F 86 18 121/60 93 L 08/25/18 07:37 94 L 08/25/18 07:36 79 16 94 L 08/25/18 05:09 98.1 F 74 20 117/58 L 96 08/25/18 00:51 68 16 93 L 08/25/18 00:12 98.8 F 71 18 127/63 95 Weight Weight 55.15 kg I&O: 08/24/18 08/25/18 08/26/18 06:59 06:59 06:59 Intake Total 2490 490 Output Total 1600 Balance 890 490 Result Diagrams: 08/22/18 19:51 08/22/18 19:51 EKG Reviewed by me: Yes Radiology Reviewed by me: Yes Phys Exam - Physical Examination Constitutional: NAD HEENT: moist MMs Decreased breath sounds RLL Cardiovascular: RRR, no significant murmur Gastrointestinal: soft, no distention Musculoskeletal: no edema, pulses present Neurological: non-focal, moves all 4 limbs Psychiatric: normal affect, A&O x 3 Skin: no rash, cap refill <2 seconds Dx/Plan (1) Pneumonia Code(s): J18.9 - PNEUMONIA, UNSPECIFIED ORGANISM Status: Acute (2) Mass of upper lobe of right lung Code(s): R91.8 - OTHER NONSPECIFIC ABNORMAL FINDING OF LUNG FIELD Status: Acute (3) Anemia Code(s): D64.9 - ANEMIA, UNSPECIFIED Status: Acute (4) Acute respiratory failure with hypoxia Code(s): J96.01 - ACUTE RESPIRATORY FAILURE WITH HYPOXIA Status: Acute (5) JOSEPH (obstructive sleep apnea) Code(s): G47.33 - OBSTRUCTIVE SLEEP APNEA (ADULT) (PEDIATRIC) Status: Acute (6) Tobacco abuse Code(s): Z72.0 - TOBACCO USE Status: Acute - Plan Plan: 67 yr old female with hx of COPD and tobacco abuse with fever, tachycardia, worsening dyspnea, and hypoxia. Small cell carcinoma of lung -pulm consulted; appreciate recs -onc consulted; appreciate recs -gen surg consulted; appreciate recs -Path results show small cell carcinoma -continue PO steroids -O2 with goal 88-95% O2 sat -plan for Mediport today and chemo during this hospitalization -s/p bronchoscopy with biopsy Sepsis possibly 2/2 post-obstructive PNA -Fever to 101.5, HR 130, WBC 13.8. -diminished breath sound in RLL; all likely related to malignancy -CTA shows 7.5 x 6.5 x 7.5 cm RUL mass totally occluding RLL bronchus/RUL pulm aa and all branches. Total atelectasis of RLL. RUL mets. Interstitial infiltrate surrounding lung mass. Mediastinal LAD. No PE -continue ceftriaxone (08/22) hx of tobacco abuse -patient quit 2 months ago. -at risk for malignancy; small cell carcinoma of lung hx of solitary lung nodule -patient reports that she has a lung nodule for years but has been unchanged -CTA shows new findings as above hypothyroidism -continue home meds prediabetes -last A1C in office on 08/12/2018 was 6.1 -follow up outpatient for mgmt b12 deficiency -last B12 wnl -receives monthly B12 injection Dispo: Stable. Plan for mediport today and chemo during this hospitalization. Addendum - Attending - Attending Attestation Date/Time: 08/25/18 1030 I personally evaluated the patient and discussed the management with Dr. Mckenna. I agree with the History, Examination, Assessment and Plan documented above with any addition or exceptions noted below. Patient here with complete atelectasis of R lung due to mass that is now known to be small cell lung carcinoma. She is going for Mediport today and will start chemotherapy tomorrow per Oncology. Continue O2 therapy as needed and pain control as needed. Further mgmt and recs per Oncology after chemo initiation.
--- NOTE | 2018-08-25 09:24 | PRG ---
DATE OF SERVICE: 08/25/2018 SUBJECTIVE: This morning, 67-year-old female. She is awake, alert, and responsive, in no respiratory distress. OBJECTIVE: VITAL SIGNS: Saturations are 97 on 2 L, respirations 18, temperature 97, pulse 86, blood pressure 121/60. CHEST: Decreased breath sounds on right lung. Left unremarkable. CARDIAC: Normal S1, S2. No gallops. ABDOMEN: No masses. DIAGNOSTIC STUDIES: She had an MRI of the brain, which was negative. She had a CT of the abdomen, which shows no obvious metastasis, possibly some liver abnormality. IMPRESSION: Small cell carcinoma appears to be limited to the chest at this stage. PLAN: She is going to have MediPort chemotherapy. She is to refrain from smoking. Continue antibiotics. Maybe switched over to oral. We will follow. Job ID: [id number]
[2018-08-25] MEDS ORDERED: Fentanyl 100 MCG/2 ML VIAL ONE (11:25)
[2018-08-25] MEDS ORDERED: Midazolam HCl 2 mg/2 ml Vial ONE (11:25)
[2018-08-25] MEDS ORDERED: Ketamine 50 MG/ML (10ML VIAL) ONE (11:26)
[2018-08-25] MEDS ORDERED: Propofol 500 MG/50 ML VIAL ONE (11:26)
[2018-08-25] MEDS ORDERED: Lidocaine 2% PF 5 ML VIAL ONE (11:52)
[2018-08-25] MEDS ORDERED: Bupivacaine HCl 0.5%/Epinephrine 1:200,000/PF 30 ml Vial ONE (11:52)
[2018-08-25] MEDS ORDERED: traMADol HCl 50 MG TAB PO PRN ×2 (13:02)
--- NOTE | 2018-08-25 13:07 | RAD ---
XR Chest 1 View Portable HISTORY:Pleural effusion. Mediport line placement. COMPARISON: Prior day study. FINDINGS: The right hemithorax is now completely opacified. A right-sided Mediport catheter seen. Cat heter tip overlies the region of the right hilum secured. The left lung is clear. IMPRESSION: Right-sided Mediport catheter has been placed since the previous exam. The right hemithor ax is now completely opacified.
--- NOTE | 2018-08-25 14:52 | OP ---
DATE OF PROCEDURE: 08/25/2018 PREOPERATIVE DIAGNOSES: 1. Small-cell carcinoma of the lung, metastatic. 2. Antineoplastic chemotherapy access. POSTOPERATIVE DIAGNOSES: 1. Small-cell carcinoma of the lung, metastatic. 2. Antineoplastic chemotherapy access. PROCEDURE PERFORMED: Placement of a slimline right subclavian vein low-profile MediPort power. ANESTHESIA: Intravenous sedation, local 0.5% Marcaine with epinephrine 30 mL mixed to 2% Xylocaine 10 mL. Fluoroscopy used for 5 seconds. DESCRIPTION OF PROCEDURE: The patient was taken to the operating room, where under intravenous sedation, neck and chest prepared with ChloraPrep and draped in routine fashion. Trocar and catheter were introduced, obtaining good routine venous blood from the subclavian vein, J-wire threaded, trocar and catheter removed. Skin site was enlarged sharply and a subcutaneous pocket developed with sharp and blunt dissection using cautery for hemostasis. Dilator and port sheath placed with J-wire into the subclavian vein and dilator and J-wire were removed. Catheter placed with Peel-Away sheath. Peel-Away sheath removed. Catheter under fluoroscopic visualization properly positioned, tip in the superior vena cava. The catheter tailored to the appropriate length and connected to the MediPort with the connecting device, which was placed in subcutaneous pocket and secured with 2 interrupted suture of 3-0 Prolene and subcutaneous tissue was approximated with 3-0 Monocryl, skin with subdermal 4-0 Monocryl. Final fluoroscopic images revealed good line placement. Dermabond applied. Morgan needle accessed the port and aspirated blood, flushed with heparinized saline solution. The port left accessed for use today. The patient tolerated the procedure well. Job ID: [id number]
[2018-08-25] MEDS ORDERED: Palonosetron HCl 0.25 MG in Sodium Chloride 0.9% 50 ML IVPB SCH (15:00)
[2018-08-25] MEDS ORDERED: Dexamethasone 10 MG in Sodium Chloride 0.9% 50 ML IVPB SCH (15:00)
[2018-08-25] MEDS ORDERED: CARBOPLATIN IVPB SCH (15:30)
[2018-08-25] MEDS ORDERED: SODIUM CHLORIDE 0.9% IVPB SCH (15:30)
[2018-08-25] MEDS: ETOPOSIDE IVPB SCH (18:49)
[2018-08-25] MEDS: SODIUM CHLORIDE 0.9% IVPB SCH (18:49)
[2018-08-25] MEDS: Citalopram 10 MG TAB PO SCH (20:23)
[2018-08-25] MEDS: Acetaminophen 500 MG TAB PO PRN (20:23)
[2018-08-25] MEDS: cefTRIAXone\\ROCEPHIN 1 GM in Sodium Chloride 0.9% 100 ML IVPB SCH (20:23)
[2018-08-26] MEDS: Mometasone/Formoterol 120 PUFF INHALER INH SCH ×2 (07:11→18:56)
[2018-08-26 09:08] LABS: #Basophils 0.1 thou/uL (0.0-0.2); #Lymphocytes 1.3 thou/uL (1.20-3.40); #Neutrophils 6.6 thou/uL (1.40-6.50); %Basophils 1.1 % (0.0-1.0); %Eosinophils 0.2 % (0.0-10.0); %Lymphocytes 14.7 % (21.0-51.0); %Monocytes 11.2 % (0.0-10.0); %Neutrophils 72.8 % (42.0-75.0); Hemoglobin 12.5 g/dL (12.0-16.0); Mean Corpuscular HGB CONC 32.3 g/dL (32.0-36.0); Mean Corpuscular Volume 89.6 fL (78.0-98.0); Mean Platelet Volume 6.8 fL (7.4-10.4); Platelet Count 391 thou/uL (130-400); RBC Distribution Width 12.5 % (11.5-14.5); Red Blood Cell (RBC) Count 4.31 mill/uL (4.20-5.40)
[2018-08-26 09:24] LABS: Albumin 3.6 g/dL (3.4-4.8); Bilirubin, Total 0.4 mg/dL (0.2-1.2); Calcium 9.7 mg/dL (7.8-10.44); Carbon Dioxide 24 mmol/L (23-31); Globulin 3.2 g/dL (2.4-3.5); Glucose 141 mg/dL (80-115); Protein, Total 6.8 g/dL (6.0-8.3)
[2018-08-26 09:25] LABS: Alkaline Phosphatase 95 U/L (40-150)
[2018-08-26 09:26] LABS: BUN (Urea Nitrogen) 15 mg/dL (9.8-20.1); Calc. Creatinine Clearance 83 mL/min (70-130); Estimated GFR-MDRD Greater than 90
[2018-08-26 09:27] LABS: AST (SGOT) 10 U/L (5-34)
[2018-08-26 09:28] LABS: ALT (SGPT) 9 U/L (8-55)
[2018-08-26] MEDS: Enoxaparin Sodium 80 MG/0.8 ML SYRINGE SC SCH (09:33)
[2018-08-26] MEDS: predniSONE 20 MG TAB PO SCH (09:33)
[2018-08-26] MEDS: Levothyroxine Sodium 88 MCG TAB PO SCH (09:33)
[2018-08-26 09:35] LABS: Anion Gap 13 mmol/L (10-20); Chloride 101 mmol/L (98-107); Potassium 4.1 mmol/L (3.5-5.1); Sodium 133 mmol/L (136-145)
--- NOTE | 2018-08-26 09:39 | PDOC.FM ---
- Subjective Subjective: Patient doing well this AM. No significant overnight events. Patient started chemo yesterday. Her breathing is stable. She got her mediport yesterday. Plan is to get chemo in hospital over the course of the next few days. - Objective MAR Reviewed: Yes Vital Signs & Weight: Vital Signs (12 hours) Temp Pulse Resp BP Pulse Ox 08/26/18 08:04 98.3 F 75 18 114/59 L 94 L 08/26/18 07:18 92 L 08/26/18 07:17 76 16 92 L 08/26/18 07:11 76 16 92 L 08/26/18 04:00 98.3 F 75 20 130/64 95 08/26/18 00:14 76 16 08/25/18 23:33 97.4 F L 62 16 131/71 93 L Weight Weight 58.513 kg I&O: 08/25/18 08/26/18 08/27/18 06:59 06:59 06:59 Intake Total 490 1375 Balance 490 1375 Result Diagrams: 08/26/18 08:56 08/26/18 08:56 EKG Reviewed by me: Yes Radiology Reviewed by me: Yes Phys Exam - Physical Examination Constitutional: NAD HEENT: moist MMs Decreased breath sounds right lung (improved from prior exam) Cardiovascular: RRR, no significant murmur Gastrointestinal: soft, no distention Musculoskeletal: no edema, pulses present Neurological: non-focal, moves all 4 limbs Psychiatric: normal affect, A&O x 3 Skin: no rash, cap refill <2 seconds Dx/Plan (1) Pneumonia Code(s): J18.9 - PNEUMONIA, UNSPECIFIED ORGANISM Status: Acute (2) Mass of upper lobe of right lung Code(s): R91.8 - OTHER NONSPECIFIC ABNORMAL FINDING OF LUNG FIELD Status: Acute (3) Anemia Code(s): D64.9 - ANEMIA, UNSPECIFIED Status: Acute (4) Acute respiratory failure with hypoxia Code(s): J96.01 - ACUTE RESPIRATORY FAILURE WITH HYPOXIA Status: Acute (5) JOSEPH (obstructive sleep apnea) Code(s): G47.33 - OBSTRUCTIVE SLEEP APNEA (ADULT) (PEDIATRIC) Status: Acute (6) Tobacco abuse Code(s): Z72.0 - TOBACCO USE Status: Acute - Plan Plan: 67 yr old female with hx of COPD and tobacco abuse with fever, tachycardia, worsening dyspnea, and hypoxia. Small cell carcinoma of lung -pulm consulted; appreciate recs -onc consulted; appreciate recs -gen surg consulted; appreciate recs -Path results show small cell carcinoma -continue PO steroids -O2 with goal 88-95% O2 sat -pt with mediport placement yesterday; started chemo yesterday -s/p bronchoscopy with biopsy which shows small cell carcinoma -plan for chemo over next few days per onc Sepsis possibly 2/2 post-obstructive PNA -Fever to 101.5, HR 130, WBC 13.8. -diminished breath sound in RLL; all likely related to malignancy -CTA shows 7.5 x 6.5 x 7.5 cm RUL mass totally occluding RLL bronchus/RUL pulm aa and all branches. Total atelectasis of RLL. RUL mets. Interstitial infiltrate surrounding lung mass. Mediastinal LAD. No PE -continue ceftriaxone (08/22); consider switching to PO abx hx of tobacco abuse -patient quit 2 months ago. -at risk for malignancy; small cell carcinoma of lung hx of solitary lung nodule -patient reports that she has a lung nodule for years but has been unchanged -CTA shows new findings as above hypothyroidism -continue home meds prediabetes -last A1C in office on 08/12/2018 was 6.1 -follow up outpatient for mgmt b12 deficiency -last B12 wnl -receives monthly B12 injection Dispo: Stable. s/p mediport. Started chemo yesterday. Continue inpatient chemo per Onc. Addendum - Attending - Attending Attestation Date/Time: 08/26/18 1043 I personally evaluated the patient and discussed the management with Dr. Mckenna I agree with the History, Examination, Assessment and Plan documented above with any addition or exceptions noted below - Ptaient reports feeling a little better. Was able to ambulate to the bathroom but still SOB. Afebrile VSS. A/P: 1 ) Small cell lung cancer - started on chemotherapy; appreciate oncology recommendations. Will evaluate for home O2. 2) Pneumonia - continue abx and steroids.
[2018-08-26 10:18] LABS: Fungus Stain Final report (.)
--- NOTE | 2018-08-26 11:00 | PRG ---
DATE OF SERVICE: 08/26/2018 SUBJECTIVE: This morning, she is better, less shortness of breath, less cough. Status post chemotherapy. OBJECTIVE: VITAL SIGNS: Sats are 94% on 2 L, temperature 98, pulse 75, respirations 18, and blood pressure 114/59. CHEST: Decreased breath sounds on right lung. Left unremarkable. CARDIAC: Normal S1 and S2. No gallops. ABDOMEN: No masses. IMPRESSION: Right lung atelectasis, small-cell cancer, chronic obstructive pulmonary disease, tobacco abuse, and hyponatremia. PLAN: Chemotherapy as per Oncology. Disposition as per Oncology. Pulmonary will follow while in the hospital. She may require low-flow O2 and neb machine at home. Job ID: [id number]
--- NOTE | 2018-08-26 13:24 | PRG ---
DATE OF SERVICE: 08/26/2018 Ms. Burnett is doing well today. Her MediPort is functioning well. She will see me in the office as needed. If she has any trouble with her MediPort or concerns about her wound, she will call me. Job ID: [id number]
[2018-08-26] MEDS: ETOPOSIDE IVPB SCH (16:09)
[2018-08-26] MEDS: SODIUM CHLORIDE 0.9% IVPB SCH (16:09)
[2018-08-26] MEDS: Citalopram 10 MG TAB PO SCH (21:22)
--- NOTE | 2018-08-27 06:22 | PDOC.FM ---
- Subjective Subjective: Patient reports feeling well this AM. Endorses some SOB and hand numbness/ tingling but denies any N/V/D, chest pain or fever or chills as well. Does endorse some constipation. - Objective MAR Reviewed: Yes Vital Signs & Weight: Vital Signs (12 hours) Temp Pulse Resp BP Pulse Ox 08/27/18 04:00 98.6 F 68 16 116/56 L 93 L 08/27/18 00:47 72 16 08/26/18 23:34 98.4 F 72 16 117/58 L 94 L 08/26/18 20:00 98.5 F 85 16 100/53 L 94 L 08/26/18 18:55 79 16 94 L Weight Weight 58.332 kg I&O: 08/25/18 08/26/18 08/27/18 06:59 06:59 06:59 Intake Total 490 1375 Balance 490 1375 Result Diagrams: 08/27/18 06:24 08/27/18 06:24 Phys Exam - Physical Examination Constitutional: NAD HEENT: moist MMs, sclera anicteric Neck: supple, full ROM Respiratory: no wheezing, no rales, no rhonchi, clear to auscultation bilateral Cardiovascular: RRR, no significant murmur Musculoskeletal: no edema Neurological: non-focal, moves all 4 limbs Psychiatric: normal affect, A&O x 3 Skin: no rash, normal turgor, cap refill <2 seconds Dx/Plan (1) Small cell carcinoma of right lung Code(s): C34.91 - MALIGNANT NEOPLASM OF UNSP PART OF RIGHT BRONCHUS OR LUNG Status: Acute (2) Anemia Code(s): D64.9 - ANEMIA, UNSPECIFIED Status: Acute (3) Hypoxia Code(s): R09.02 - HYPOXEMIA Status: Chronic (4) Mass of upper lobe of right lung Code(s): R91.8 - OTHER NONSPECIFIC ABNORMAL FINDING OF LUNG FIELD Status: Acute (5) JSOEPH (obstructive sleep apnea) Code(s): G47.33 - OBSTRUCTIVE SLEEP APNEA (ADULT) (PEDIATRIC) Status: Chronic - Plan Plan: 67 yr old female with hx of COPD and tobacco abuse with fever, tachycardia, worsening dyspnea, and hypoxia found to have SCC of the R lung. Small cell carcinoma of lung -s/p bronchoscopy with biopsy which shows small cell carcinoma -pulm consulted; appreciate recs -onc consulted; appreciate recs -gen surg consulted; appreciate recs -continue PO steroids -O2 sat goal of 88-95% -pt is s/p mediport placement & started chemo 2 days ago -plan for chemo over next few days in the hospital per onc Sepsis possibly 2/2 post-obstructive PNA, improving -Fever to 101.5, HR 130, & WBC 13.8 on admission but no fever since & HD stable. -diminished breath sound in RLL markedly improved; all likely related to malignancy - CTA shows 7.5 x 6.5 x 7.5 cm RUL mass totally occluding RLL bronchus/RUL pulm aa and all branches. Total atelectasis of RLL. RUL mets. Interstitial infiltrate surrounding lung mass. Mediastinal LAD. No PE. - Will switch to PO abx today & continue for 3 more days to complete a 7 day course. hx of tobacco abuse -patient quit 2 months ago. -at risk for malignancy; small cell carcinoma of lung hx of solitary lung nodule -patient reports that she has a lung nodule for years but has been unchanged -CTA shows new findings as above hypothyroidism -continue home meds prediabetes -last A1C in office on 08/12/2018 was 6.1 -follow up outpatient for mgmt b12 deficiency -last B12 wnl -receives monthly B12 injection Constipation - Will add PRN miralax QD. Dispo: Stable. s/p mediport placement 2 days ago. Will continue inpatient chemo likely through Wednesday per Onc recs. Addendum - Attending - Attending Attestation Date/Time: 08/27/18 1131 I personally evaluated the patient and discussed the management with Dr. Gale. I agree with the History, Examination, Assessment and Plan documented above with any addition or exceptions noted below. The patient notes some tingling in her fingers since starting chemo. She also complains of constipation. Will add miralalx. F/u with oncology recs.
[2018-08-27 06:39] LABS: #Eosinphils 0.1 thou/uL (0.0-0.7); #Lymphocytes 2.1 thou/uL (1.20-3.40); #Monocytes 0.9 thou/uL (0.11-0.59); #Neutrophils 5.4 thou/uL (1.40-6.50); %Basophils 0.2 % (0.0-1.0); %Eosinophils 1.7 % (0.0-10.0); %Lymphocytes 24.4 % (21.0-51.0); %Monocytes 10.3 % (0.0-10.0); %Neutrophils 63.4 % (42.0-75.0); Hemoglobin 12.3 g/dL (12.0-16.0); Mean Corpuscular HGB CONC 33.2 g/dL (32.0-36.0); Mean Corpuscular Hemoglobin 29.7 pg (27.0-31.0); Mean Corpuscular Volume 89.6 fL (78.0-98.0); Mean Platelet Volume 6.9 fL (7.4-10.4); Platelet Count 375 thou/uL (130-400); RBC Distribution Width 12.5 % (11.5-14.5); Red Blood Cell (RBC) Count 4.14 mill/uL (4.20-5.40); White Blood Cell (WBC) Count 8.5 thou/uL (4.8-10.8)
[2018-08-27 07:01] LABS: ALT (SGPT) 7 U/L (8-55); AST (SGOT) 10 U/L (5-34); Albumin 3.5 g/dL (3.4-4.8); Alkaline Phosphatase 83 U/L (40-150); Anion Gap 12 mmol/L (10-20); BUN (Urea Nitrogen) 13 mg/dL (9.8-20.1); Bilirubin, Total 0.6 mg/dL (0.2-1.2); Calc. Creatinine Clearance 84 mL/min (70-130); Calcium 9.4 mg/dL (7.8-10.44); Carbon Dioxide 27 mmol/L (23-31); Chloride 100 mmol/L (98-107); Estimated GFR-MDRD Greater than 90; Globulin 3.1 g/dL (2.4-3.5); Glucose 96 mg/dL (80-115); Potassium 3.9 mmol/L (3.5-5.1); Protein, Total 6.6 g/dL (6.0-8.3); Sodium 135 mmol/L (136-145)
[2018-08-27] MEDS: Mometasone/Formoterol 120 PUFF INHALER INH SCH ×2 (07:28→18:44)
[2018-08-27] MEDS ORDERED: Polyethylene Glycol 3350 17 GM Packet PO PRN (08:19)
[2018-08-27] MEDS: predniSONE 20 MG TAB PO SCH (08:54)
[2018-08-27] MEDS: Enoxaparin Sodium 80 MG/0.8 ML SYRINGE SC SCH (08:54)
[2018-08-27] MEDS: Levothyroxine Sodium 88 MCG TAB PO SCH (08:54)
[2018-08-27] MEDS: Cefdinir 300 MG CAP PO SCH ×2 (08:54→20:29)
--- NOTE | 2018-08-27 13:42 | PRG ---
DATE OF SERVICE: 08/27/2018 SUBJECTIVE: This morning, she is better, less short of breath. OBJECTIVE: VITAL SIGNS: Saturations are 92% on 3 L, respiratory rate 14, temperature 98, and blood pressure 139/71. CHEST: Decreased breath sounds without any wheezing. CARDIAC: Normal S1 and S2. No gallops. ABDOMEN: No masses. LABORATORY DATA: Unremarkable. ASSESSMENT: Status post chemotherapy for extensive small cell carcinoma. PLAN: PT, supportive care. DISPOSITION: As per Oncology. Job ID: [id number]
[2018-08-27] MEDS: ETOPOSIDE IVPB SCH (16:03)
[2018-08-27] MEDS: SODIUM CHLORIDE 0.9% IVPB SCH (16:03)
[2018-08-27] MEDS: Citalopram 10 MG TAB PO SCH (20:29)
--- NOTE | 2018-08-28 06:07 | PDOC.FM ---
- Subjective Subjective: NAEO. Patient reports that she feels well this AM. Reports improvement in her breathing and denies any fever/chills, N/V/D. Does endorse some constipation and numbness in her hands. - Objective MAR Reviewed: Yes Vital Signs & Weight: Vital Signs (12 hours) Temp Pulse Resp BP Pulse Ox 08/27/18 23:19 65 18 93 L 08/27/18 20:00 98 F 70 20 110/62 96 08/27/18 18:40 69 16 93 L Weight Weight 58.332 kg I&O: 08/26/18 08/27/18 08/28/18 06:59 06:59 06:59 Intake Total 1375 1730 Balance 1375 1730 Result Diagrams: 08/27/18 06:24 08/27/18 06:24 Phys Exam - Physical Examination Constitutional: NAD HEENT: moist MMs, sclera anicteric Neck: supple, full ROM Respiratory: no wheezing, no rales, no rhonchi, clear to auscultation bilateral (with slightly decreased breath sounds in RLL) Cardiovascular: RRR, no significant murmur Neurological: non-focal, moves all 4 limbs Psychiatric: normal affect, A&O x 3 Skin: no rash, normal turgor Dx/Plan (1) Small cell carcinoma of right lung Code(s): C34.91 - MALIGNANT NEOPLASM OF UNSP PART OF RIGHT BRONCHUS OR LUNG Status: Acute (2) Anemia Code(s): D64.9 - ANEMIA, UNSPECIFIED Status: Acute (3) Hypoxia Code(s): R09.02 - HYPOXEMIA Status: Chronic (4) Mass of upper lobe of right lung Code(s): R91.8 - OTHER NONSPECIFIC ABNORMAL FINDING OF LUNG FIELD Status: Acute (5) JOSEPH (obstructive sleep apnea) Code(s): G47.33 - OBSTRUCTIVE SLEEP APNEA (ADULT) (PEDIATRIC) Status: Chronic - Plan Plan: 67 yr old female with hx of COPD and tobacco abuse with fever, tachycardia, worsening dyspnea, and hypoxia found to have SCC of the R lung. Small cell carcinoma of lung -s/p bronchoscopy with biopsy which shows small cell carcinoma -pulm consulted; appreciate recs -onc consulted; appreciate recs -gen surg consulted; appreciate recs -continue PO steroids -O2 sat within goal of 88-95% on 2.5L NC -pt is s/p mediport placement & started chemo 3 days ago -plan for likely discharge home today following her chemo treatment per onc according to patient Sepsis possibly 2/2 post-obstructive PNA, resolved -Fever to 101.5, HR 130, & WBC 13.8 on admission but no fever since & HD stable. -diminished breath sound in RLL markedly improved; all likely related to malignancy -CTA shows 7.5 x 6.5 x 7.5 cm RUL mass totally occluding RLL bronchus/RUL pulm aa and all branches. Total atelectasis of RLL. RUL mets. Interstitial infiltrate surrounding lung mass. Mediastinal LAD. No PE. - Will continue PO abx for 2 more days to complete a 7 day course. hx of tobacco abuse -patient quit 2 months ago. -at risk for malignancy; small cell carcinoma of lung hx of solitary lung nodule -patient reports that she has a lung nodule for years but has been unchanged -CTA shows new findings as above hypothyroidism -continue home meds prediabetes -last A1C in office on 08/12/2018 was 6.1 -follow up outpatient for mgmt b12 deficiency -last B12 wnl -receives monthly B12 injection Constipation - Will add PRN miralax QD to stool softener. Dispo: Stable. s/p mediport placement 3 days ago. Will likely go home today with close follow-up with Onc & radiation-oncology upon discharge. Addendum - Attending - Attending Attestation Date/Time: 08/28/18 1210 I personally evaluated the patient and discussed the management with Dr. Gale. I agree with the History, Examination, Assessment and Plan documented above with any addition or exceptions noted below. Pt is feeling much better. Still with constipation this morning but will take miralax again. She has been cleared for d/c this afternoon after an injection by oncology. Arranging home O2.
[2018-08-28] MEDS: Mometasone/Formoterol 120 PUFF INHALER INH SCH (06:29)
[2018-08-28] MEDS: Enoxaparin Sodium 80 MG/0.8 ML SYRINGE SC SCH (08:22)
[2018-08-28] MEDS: Cefdinir 300 MG CAP PO SCH (08:22)
[2018-08-28] MEDS: Levothyroxine Sodium 88 MCG TAB PO SCH (08:22)
[2018-08-28] MEDS: predniSONE 20 MG TAB PO SCH (08:22)
[2018-08-28 08:23] VITALS: BP 100/60; TEMP 97.5
[2018-08-28] MEDS ORDERED: PEGFILGRASTIM-JMDB 6 MG/0.6 ML SYRINGE SQ SCH (09:00)
--- NOTE | 2018-08-28 13:33 | PRG ---
DATE OF SERVICE: 08/28/2018 SUBJECTIVE: Status post chemo for small cell lung cancer, COPD. OBJECTIVE: VITAL SIGNS: Sats 94% on 2 L, respiratory rate 18, temperature 97, and blood pressure 100/60. GENERAL: No complaints. CHEST: Decreased breath sounds. No wheezing. CARDIAC: Normal S1 and S2. No gallops. ABDOMEN: Soft. ASSESSMENT: Extensive right lung cancer with marked obstruction, chronic obstructive pulmonary disease, sleep apnea. Disposition, primary care physician. Outpatient radiation therapy. PLAN: Continue nebs. Supportive care. Job ID: [id number]
--- NOTE | 2018-08-29 07:21 | DIS ---
DATE OF ADMISSION: 08/22/2018 DATE OF DISCHARGE: 08/28/2018 ADMITTING ATTENDING: Dr. Macrina Ravi. DISCHARGE ATTENDING: Dr. Masha Delgado. CONSULTS: 1. Pulmonology, Dr. Michele Estevez. 2. Oncology, Dr. Florencio Chahal. 3. General surgery, Dr. Mustapha Gipson. PROCEDURES: 1. Chest/thorax CTA on 08/22/2018, which noted a large right hilar and perihilar upper lobe lung mass (evidence for primary lung cancer), which is totally occluding the right lower lobe bronchus resulting in total atelectasis of the right lower lobe as well as occlusion of the right upper lobe pulmonary artery and all of its branches. Multiple satellite metastatic pulmonary nodules in the right upper lobe. Interstitial infiltrate surrounding the large right pulmonary mass and mediastinal lymphadenopathy. 2. Bronchoscopy with biopsy on 08/23/2018. 3. Chest x-ray on 08/24/2018, which noted worsening right-sided volume loss with almost total abnormal opacification of the right hemithorax with slight hyperinflation of the left chest. 4. Abdomen pelvis CT on 08/24/2018, which was significant for extensive confluent opacity changes in the right lower lobe. Too small to characterize low attenuation focus in the right lobe of the liver as well as in the kidneys. No adenopathy or evidence for metastasis. 5. Brain MRI on 08/24/2018, which showed no intracranial metastatic disease. 6. Placement of a slimline right subclavian vein low-profile MediPort power on 08/25/2018. 7. Chest x-ray on 08/25/2018, which showed right-sided MediPort catheter placed since previous exam and complete opacification of the right hemithorax. PRIMARY DIAGNOSES: 1. Acute hypoxic respiratory failure secondary to small-cell carcinoma of the lung. 2. Sepsis secondary to postobstructive pneumonia secondary to small cell carcinoma of the lung. 3. Small cell carcinoma of the right lung. SECONDARY DIAGNOSES: 1. Obstructive sleep apnea. 2. Hypothyroidism. 3. Pernicious anemia. 4. Chronic obstructive pulmonary disease. 5. Previous history of tobacco use. DISCHARGE MEDICATIONS: 1. Cyanocobalamin 1000 mcg IM every 28 days. 2. Protonix 40 mg p.o. daily. 3. Synthroid 88 mcg p.o. daily. 4. Citalopram 10 mg p.o. at bedtime. 5. Ventolin 2 puffs inhaled every 4 hours p.r.n. 6. Xarelto starter pack one tablet p.o. as directed. 7. Compazine 10 mg p.o. every 8 hours p.r.n. 8. MiraLAX 17 g p.o. daily p.r.n. 9. Zofran 8 mg p.o. every 8 hours p.r.n. 10. Dulera 200 mcg/5 mcg inhaler 2 puffs inhaled b.i.d. 11. Cefdinir 300 mg capsules p.o. b.i.d. #5 capsules. 12. Dulcolax 5 mg p.o. daily p.r.n. 13. Tessalon 100 mg p.o. t.i.d. p.r.n. 14. Acetaminophen 1000 mg p.o. every 6 hours p.r.n. DISCONTINUED MEDICATIONS: None. HOSPITAL COURSE: The patient is a 67-year-old female with a past medical history significant for former tobacco use & COPD who was directly admitted from outpatient clinic after presenting there with significant dyspnea that began the Wednesday prior to the date of presentation. The patient was reportedly recently treated for bronchitis with cefdinir and albuterol, but presented to clinic complaining of persistent chills, fatigue, anorexia, sore throat and a dry cough as well as right-sided chest discomfort with deep inspiration. In clinic, the patient's vitals were notable for oxygen saturation of 88% on room air, heart rate of 130 and a fever of 101.5 degrees Fahrenheit. She was therefore directly admitted to [facility] with orders to obtain a chest and abdominal CT. Upon presenting to the hospital, the CT was performed which was notable for left upper lobe mass compressing on the bronchus and pulmonary artery suspicious for primary lung cancer. Routine lab work was also obtained which was significant for an elevated white blood cell count of 13.8 and a sodium level of 135. The following day, Pulmonology, Dr. Michele Estevez, was consulted & performed bronchoscopy with biopsy of the lesion. The biopsy of her lung lesion was noted to be consistent with small cell carcinoma with necrosis. Oncology, Dr. Florencio Chahal, was therefore consulted to come and evaluate the patient to identify the best course of treatment. The patient elected to undergo chemotherapy as recommended by Dr. Chahal and therefore had a MediPort placed on 08/25/[address] Mustapha Gipson which she tolerated well. Following her Mediport placement, the patient therefore underwent 3 sessions of chemotherapy over the next 3 days while being monitored closely in the hospital. The patient tolerated the chemotherapy well and it was recommended by Dr. Chahal that she continue her treatment on an outpatient basis and that she follow up with Radiation Oncology, Dr. Ren, as well upon discharge for radiation therapy. Dr. Chahal also recommended that the patient be equipped with home oxygen as she required supplemental oxygen for the entire duration of her hospital stay up to 2-1/2 L to maintain adequate oxygen saturations. Regarding the patient's fever and leukocytosis, it was determined that the patient was septic 2/2 a postobstructive pneumonia from her cancer. She was started on p.o. steroids as well as IV azithromycin and Rocephin which were continued for the next several days until she was transitioned to p.o. Omnicef, which she was instructed to continue upon discharge to complete a total of 7 days of antibiotics. By the date of discharge, her white blood count was within normal limits at 8.5 & she was hemodynamically stable with normal oxygen saturations on 2-2.5L of oxygen via nasal canula. DISPOSITION: Stable. DISCHARGE INSTRUCTIONS: 1. Location: Home with home oxygen per recommendations of the primary team as well as Oncology. 2. Diet: Diabetic diet. 3. Activity: As tolerated. 4. Follow-up: The patient was instructed to follow up with her primary care provider, Dr. Brionna Monae, within 2 weeks of discharge as well as Oncology, Dr. Florencio Chahal, and radiation oncologist, Dr. Ren, within 1 week of discharge. Job ID: [id number] MTDD
== END 2018-08-28 14:52 | disposition home or self-care (01) | DRG 853 ==
LOC: 2NO 17:51 → ONC 08-24 13:35
PROVIDERS: ADMIT Student in an Organized Health Care Education/Training Program; ATTEND Student in an Organized Health Care Education/Training Program
PROC: 0BBK8ZX Excision of Right Lung, Via Natural or Artificial Opening Endoscopic, Diagnostic (ICD-10-PCS; 2018-08-23)
PROC: 0B9K8ZX Drainage of Right Lung, Via Natural or Artificial Opening Endoscopic, Diagnostic (ICD-10-PCS; 2018-08-23)
PROC: 0JH63WZ Insertion of Totally Implantable Vascular Access Device into Chest Subcutaneous Tissue and Fascia, Percutaneous Approach (ICD-10-PCS; principal; 2018-08-25)
PROC: 02HV33Z Insertion of Infusion Device into Superior Vena Cava, Percutaneous Approach (ICD-10-PCS; 2018-08-25)
DX: A41.9 Sepsis, unspecified organism (principal); J96.01 Acute respiratory failure with hypoxia; J18.8 Other pneumonia, unspecified organism; C78.1 Secondary malignant neoplasm of mediastinum; C34.81 Malignant neoplasm of overlapping sites of right bronchus and lung; J44.0 Chronic obstructive pulmonary disease with (acute) lower respiratory infection; E87.1 Hypo-osmolality and hyponatremia; G47.33 Obstructive sleep apnea (adult) (pediatric); R73.03 Prediabetes; E03.9 Hypothyroidism, unspecified; K59.00 Constipation, unspecified; R91.8 Other nonspecific abnormal finding of lung field; K57.30 Diverticulosis of large intestine without perforation or abscess without bleeding; K21.9 Gastro-esophageal reflux disease without esophagitis; D51.9 Vitamin B12 deficiency anemia, unspecified; Z87.891 Personal history of nicotine dependence; Z88.1 Allergy status to other antibiotic agents
CPT/HCPCS: 36415; 70553; 71045; 71275; 74177; 80053; 81001; 83735; 83880; 84145; 84484; 85025; 87040; 87070; 87086; 87102; 87116; 87205; 87206; 87899; 88104; 88112; 88305; 88341; 88342; 88360; 94640; 99152; 99153; A9577; J0171; J0456; J0670; J0690; J0696; J1100; J1642; J1650; J2001; J2250; J2469; J2704; J3010; J3420; J3490; J7050; J7512; J7620; J9045; J9181; Q5108; Q9966

== ENCOUNTER 2018-09-08 07:34 | Outpatient (CLI) | payer MEDICARE, BC ==
--- NOTE | 2018-09-08 09:32 | PET ---
Exam: PET CT skull to mid thigh COMPARISON: CT chest 08/22/2018 HISTORY: Small cell lung cancer TECHNIQUE: A PET/CT was performed from the skull to the mid thigh after administration of 11.7 millic uries of F-18 FDG. Evaluation was performed on a [employer] workstation. FINDINGS: NECK: Hypermetabolic activity is seen within the thyroid gland diffusely with maximum SUV value of 4. 7. No CT hypodense correlate is seen. CHEST: There is a 4.3 cm right hilar mass with maximum SUV value of 5.3. Less pronounced collapse/con solidation of the right lung is seen compared to the prior CT. There are focal areas of airspace opacity/consolidation in the right upper and middle lobes which are not hypermetabolic. No hypermetab olic or enlarged hilar or mediastinal lymph nodes are seen. A calcified granuloma is seen in the right middle lobe. ABDOMEN/PELVIS: No areas of hypermetabolic activity SKELETON: Diffuse nonfocal hypermetabolic activity in the skeleton is likely secondary to marrow acti vation. No focal hypermetabolic activity is seen. CT images used for attenuation correction show a right-sided Mediport and breast implants. Diverticul osis is seen in the colon. Atherosclerotic calcific lesions are seen in the aorta.. IMPRESSION: Improvement in right hilar mass.
== END 2018-09-08 07:35 | disposition home or self-care (01) ==
LOC: PET 07:34
PROVIDERS: ATTEND Internal Medicine Hematology & Oncology
DX: C34.90 Malignant neoplasm of unspecified part of unspecified bronchus or lung (principal); R91.8 Other nonspecific abnormal finding of lung field
CPT/HCPCS: 78815; A9552

== ENCOUNTER 2019-01-10 10:03 | Outpatient (CLI) | payer MEDICARE, BC ==
--- NOTE | 2019-01-10 11:07 | CT ---
CT CHEST AND ABDOMEN AND PELVIS: 01/10/2019 COMPARISON: CT chest 08/22/2018 CT abdomen and pelvis 08/24/2018 HISTORY: Lung cancer. TECHNIQUE: Axial CT imaging at 5 mm intervals from the thoracic inlet through the pubic symphysis with intraveno us and oral contrast. Coronal and sagittal reformatted imaging obtained. FINDINGS: Bilateral breast implants are present. Right-sided Port-A-Cath in place. No axillary or mediastinal lymphadenopathy noted. No left hilar lymphadenopathy. The left lung appears clear. There is a mass in the central aspect of the right upper lobe, inseparable from the right hilum. Thi s obliterates the bronchus supplying the left upper lobe. On this examination, this right hilar mass measures approximately 2.5 cm in AP dimension and 2.6 cm in transverse dimension. This mass yoselin sured 3.9 x 4.3 cm on the 09/08/2018 and PET and measured approximately 7.5 x 7.6 cm on the 08/22/2018 CT angiogram chest. There are subtle reticulonodular densities within the right upper lobe posteriorly and anteriorly-sup eriorly, located with respect to the hilar mass, which could signify minimal post obstructive pneumonitis or areas of additional malignancy. To the right of the superior vena cava, on axial imag e 25, there is a mass measuring 1.2 cm in AP dimension within the right upper lobe, which may also be related to malignancy, decreased from 1.6 cm on the PET/CT. No pulmonary parenchymal mass lesion or nodule is evident within the right lower lobe or the right mi ddle lobe. The vascular structures of the chest demonstrate atherosclerotic calcification of the descending thor acic aorta and the aortic arch. The osseous structures of the chest demonstrate no discrete worrisome lytic or blastic lesion. No free intraperitoneal air or fluid is noted. There is a tiny hypodensity within the anterior aspect of the right lobe of the liver on axial image 55, measuring 4-5 mm, too small to characterize. The liver appears grossly unremarkable otherwise. The spleen, pancreas, adrenal glands and kidneys demonstrate no acute findings. No evidence for bowel inflammatory change or bowel obstruction. There is atherosclerotic calcification of the abdominal aorta and its branches. No abdominal or pelvic lymphadenopathy is seen. Osseous structures of the abdomen/pelvis demonstrate no worrisome lytic or blastic lesions. There are degenerative changes involving the lower lumbar spine with multilevel disc space narrowing and facet hypertrophy. There is also degenerative change involving the sacroiliac joints, inferiorly, ri ght greater than left. IMPRESSION: 1. Right hilar mass, decreased in size since the prior study. An additional mass is seen in the rig ht upper lobe, lateral to the SVC, suspicious for malignancy as well. 2. Reticulonodular densities are noted within the superior, anterior and posterior right upper lobe, which may signify post obstructive mild pneumonitis. 3. Right upper lobe bronchus is obliterated. 4. No new pulmonary parenchymal lesions. 5. No evidence for metastatic disease within the abdomen or pelvis. Transcribed Date/Time: 01/10/2019 11:41 AM
--- NOTE | 2019-01-10 11:57 | MRI ---
Brain MRI with and without contrast: 01/10/2019 Comparison 08/24/2018 HISTORY: Evaluate for metastatic disease, small cell lung cancer TECHNIQUE: Multiplanar multisequence MR imaging of the brain obtained with and without contrast FINDINGS: The diffusion weighted imaging demonstrates no evidence for acute infarction and the axial gradient echo imaging demonstrates no evidence for acute hemorrhage. No midline shift, mass effect, or ventricular enlargement is seen. There are numerous subcentimeter foci of increased T2 and FLAIR signal within the periventricular, de ep, and subcortical white matter bilaterally, suggesting stable small vessel disease. Arterial flow voids at the axial level of the skull base appear grossly unremarkable on the T2-weight ed imaging. There is mucosal thickening involving bilateral maxillary sinuses, left greater than right, bilateral sphenoid sinuses, right greater than left, and bilateral ethmoid air cells. Thin section postcontrast imaging demonstrates no abnormal enhancement within the brain parenchyma to suggest intracranial metastatic disease. IMPRESSION: No MR evidence of intracranial metastatic disease.
== END 2019-01-10 10:04 | disposition home or self-care (01) ==
LOC: CT 10:03
PROVIDERS: ATTEND Internal Medicine Hematology & Oncology
DX: C34.01 Malignant neoplasm of right main bronchus (principal); J98.4 Other disorders of lung; J18.9 Pneumonia, unspecified organism
CPT/HCPCS: 70553; 71260; 74177

== ENCOUNTER 2019-01-31 07:32 | Outpatient (CLI) | payer MEDICARE, BC ==
--- NOTE | 2019-02-01 14:56 | PFT ---
PATIENT HISTORY: HEIGHT: 64 IN WEIGHT: 143 LBS SMOKER: YES HOW LON YRS PACKS PER DAY: .75 PRODUCTIVE COUGH: LUNG DISEASE: PHYSICIAN INTERPRETATION FINAL REPORT: Patient had good effort and good cooperation. PFT data: FVC 2.73 (84%), FEV1 1.92 (78%), FEV1/FVC 0.70. RV 2.48 (115%), TLC 5.01 (93%) DIFFUSION 12.2 (52%) The FEV1 and FVC both fall within the lower limits of normal. The ratio is also normal for 68 year old suggesting the is no evidence of obstructive air flow limitation. The expiratpry limb of the flow volume loop is reactively straight, without an obstructive contour. Residual Volume and Total Lung Capacity fall with in the normal limits. The diffusion capacity is moderately impaired. IMPRESSION: Overall, these pulmonary function studies are consistent with normal spirometry and lung volumes with an isolated reduced diffusion capacity. Pulmonary vascular disorders, and early interstitial processes should be considered. I have no priors for comparison. Onion Topper: HUSAM Freight Coordinator: HUSAM VAZQUEZ
== END 2019-01-31 07:33 | disposition home or self-care (01) ==
LOC: CP 07:32
PROVIDERS: ATTEND Family Medicine
DX: C34.90 Malignant neoplasm of unspecified part of unspecified bronchus or lung (principal); J44.9 Chronic obstructive pulmonary disease, unspecified; I37.9 Nonrheumatic pulmonary valve disorder, unspecified
CPT/HCPCS: 94060; 94727; 94729

== ENCOUNTER 2019-04-11 09:35 | Outpatient (CLI) | payer MEDICARE, BC ==
[2019-04-11 10:01] LABS: Estimated GFR-MDRD - POC Greater than 90
--- NOTE | 2019-04-11 11:55 | MRI ---
Brain MRI with and without contrast: 04/11/2019 COMPARISON: 01/10/2019 HISTORY: Evaluate for metastatic disease, history of small cell lung cancer TECHNIQUE: Multiplanar multisequence MR imaging of the brain is obtained with and without contrast FINDINGS: There is no evidence for acute infarction or intracranial hemorrhage. The imaged paranasal sinuses/mastoid air cells demonstrate normal signal intensity. Arterial flow voids at the axial level of the skull base appear grossly unremarkable on the T2-weight ed imaging. There has been interval development of 2 enhancing intra-axial masses on the basis of metastatic dise ase. This includes a 1.5 cm left-sided posterior frontoparietal lesion laterally and a 2.2 cm enhancing lesion within the right cerebellar hemisphere. There is significant vasogenic edema adjacen t to the cerebellar lesion on the right and there is mild vasogenic edema associated with the left supratentorial mass. No midline shift. Multifocal periventricular, deep, and subcortical white matter T2 and FLAIR hyperintensity noted, evidence of small vessel disease. IMPRESSION: 2 new enhancing intra-axial lesions as detailed above, concerning for interval developmen t of intracranial metastatic disease. Dr. Chahal made aware at 11:50 AM 04/11/2019.
--- NOTE | 2019-04-11 12:19 | CT ---
CT CHEST WITH IV CONTRAST: CT ABDOMEN WITH IV CONTRAST: CT PELVIS WITH IV CONTRAST: HISTORY: Lung cancer status post chemo and radiation therapy. COMPARISON: 01/10/2019 FINDINGS: Bilateral breast implants are again seen. No pleural or pericardial effusions are noted. The 2.6 cm m ass in the central portion of the right upper lobe, inseparable from the right hilum, is essentially stable. The previously noted 1.2 cm mass to the right of the superior vena cava is not separate from the above described mass. There is a 15 mm focal area of density in the peripheral aspect of the righ t upper lobe, in the region of reticular nodularity noted on the previous study. This has the appeara nce of a small focal mass-like consolidation. No mediastinal, left hilar or axillary mass or lymphadenopathy is seen. Focal calcification likely du e to old granulomatous disease in the right upper lobe medially is stable. No new lung masses or nodu les are seen. There are vascular calcifications without evidence of an aneurysmal dilatation of the thoracic aorta. There are degenerative changes in the thoracolumbar spine. No osteolytic or osteoblastic lesions are noted. There is a grade 1 anterolisthesis of L4 over L5. the tiny low density lesion at the anterior aspect of the right lobe of the liver is stable. No new l iver lesions are seen. The spleen, pancreas, adrenal glands and kidneys are unremarkable. No calcifie d gallstones are seen. No free air, free fluid or lymphadenopathy is seen in the abdomen or pelvis. The small bowel loops ar e not abnormally dilated. The patient is post hysterectomy. IMPRESSION: 1. Interval development of a focal mass-like area of consolidation in the peripheral aspect of the ri ght upper lobe, measuring 14 mm. Infection vs malignancy. 2. Stable right suprahilar/hilar lung mass. 3. No evidence of metastatic disease in the abdomen or pelvis. POS: [facility]
[2019-04-11] MEDS ORDERED: Iopamidol 370 76% 100 ML VIAL ONE (13:40)
== END 2019-04-11 09:36 | disposition home or self-care (01) ==
LOC: CT 09:35
PROVIDERS: ATTEND Internal Medicine Hematology & Oncology
DX: C34.01 Malignant neoplasm of right main bronchus (principal); R91.8 Other nonspecific abnormal finding of lung field; G93.9 Disorder of brain, unspecified
CPT/HCPCS: 70553; 71260; 74177; 82565

== ENCOUNTER 2019-04-12 13:05 | Inpatient (IN) | payer MEDICARE, BC ==
[2019-04-12] MEDS ORDERED: Dexamethasone 10 MG/ML VIAL ONE (14:28)
[2019-04-12 14:43] LABS: #Eosinphils 0.1 thou/uL (0.0-0.7); #Lymphocytes 0.5 thou/uL (1.20-3.40); #Monocytes 0.8 thou/uL (0.11-0.59); #Neutrophils 6.1 thou/uL (1.40-6.50); %Basophils 0.2 % (0.0-1.0); %Eosinophils 0.9 % (0.0-10.0); %Monocytes 10.3 % (0.0-10.0); %Neutrophils 81.5 % (42.0-75.0); Hemoglobin 11.7 g/dL (12.0-16.0); Mean Corpuscular HGB CONC 33.3 g/dL (32.0-36.0); Mean Corpuscular Hemoglobin 29.7 pg (27.0-31.0); Mean Corpuscular Volume 89.4 fL (78.0-98.0); Mean Platelet Volume 6.9 fL (7.4-10.4); Platelet Count 259 thou/uL (130-400); RBC Distribution Width 12.6 % (11.5-14.5); Red Blood Cell (RBC) Count 3.93 mill/uL (4.20-5.40); White Blood Cell (WBC) Count 7.5 thou/uL (4.8-10.8)
[2019-04-12 15:05] LABS: ALT (SGPT) 10 U/L (8-55); AST (SGOT) 17 U/L (5-34); Albumin 4.2 g/dL (3.4-4.8); Alkaline Phosphatase 109 U/L (40-110); Anion Gap 15 mmol/L (10-20); BUN (Urea Nitrogen) 10 mg/dL (9.8-20.1); Bilirubin, Total 0.5 mg/dL (0.2-1.2); Calc. Creatinine Clearance 0 mL/min (70-130); Calcium 9.5 mg/dL (7.8-10.44); Carbon Dioxide 24 mmol/L (23-31); Chloride 98 mmol/L (98-107); Estimated GFR-MDRD 80; Globulin 3.5 g/dL (2.4-3.5); Glucose 162 mg/dL (80-115); Potassium 3.6 mmol/L (3.5-5.1); Protein, Total 7.7 g/dL (6.0-8.3); Sodium 133 mmol/L (136-145)
--- NOTE | 2019-04-12 15:10 | CT ---
CT BRAIN WITHOUT CONTRAST: HISTORY: Seizure, brain metastases FINDINGS: There is vasogenic edema in the region of the mass is noted in the right cerebellar hemisphere and le ft posterior frontoparietal lobe noted on the MRI of 04/11/2019. The mass itself is not visualized. No evidence of acute infarct, hemorrhage, midline shift or abnormal extra-axial fluid collections is seen. The ventricular size is appropriate and the basilar cisterns are patent. The bony calvarium is intact. The visualized paranasal sinuses and mastoid air cells are well aerated. IMPRESSION: No CT evidence of acute intracranial process.
[2019-04-12] MEDS ORDERED: Aspirin 325 MG TAB ONE (15:28)
[2019-04-12 15:37] LABS: CKMB 3.1 ng/mL (0-6.6)
--- NOTE | 2019-04-12 16:24 | PDOC.FPRHP ---
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 Pt was recently found to have new brain mets with edema on recent MRI. She just saw Dr. Chahal with oncology yesterday. He prescribed her dexamethasone for the edema. The patient had not picked it up. Pt was trying to use her phone and couldnt. Pt then doesn't remember after. Pt reports spatial awareness was off. Pt cousin whom she lives with then states noticing her having whole body shaking, drooling. Episode lasted 3.5 minutes and ended just as fire department arrived. Pt does not remember coming to hospital. Pt reports feeling better. Reports feeling overall weak and tired. Pt cousin and other family member present in room reports patient mentation at baseline. Denies any speech changes. Pt denies any numbness or tingling. Denies any audio or visual changes. Denies any headache. Pt reports chronic tingling in fingertips from past chemo tx. Pt has radiation cough. Wears cpap at night and uses o2 at night and o2 in day as needed. Denies any SOB or chest pain at this time. Denies any n/v/d/c. Finished chemo back in October. Was on cisplastin. Pt reports has been feeling better and doing well ever since. Pt was suppose to follow up with rad/onc Dr. Ren tmrw. - Allergies/Adverse Reactions Allergies Allergy/AdvReac Type Severity Reaction Status Date / Time ciprofloxacin [From Cipro] Allergy Severe Anxiety Verified 08/22/18 18:24 gluten Allergy Severe Hives Verified 04/12/19 22:27 - Home Medications Medication Instructions Recorded Confirmed Type Acetaminophen [Tylenol Extra 1,000 mg PO Q6H PRN tab 08/28/18 04/12/19 Rx Strength] Albuterol Sulfate [Ventolin Hfa] 2 puff INH Q4H PRN #1 hfa.aer.[id number] 08/28/1804/12 Rx Benzonatate [Tessalon] 100 mg PO TIDPRN PRN #90 cap 08/28/18 04/12/19 Rx Bisacodyl [Dulcolax] 5 mg PO DAILYPRN PRN tab 08/28/18 04/12/19 Rx Citalopram [CeleXA] 10 mg PO HS #30 tab 08/28/18 04/12/19 Rx Cyanocobalamin 1000 MCG/ML VIA 1,000 mcg IM Q28D #3 vial 08/28/18 04/12/19 Rx [Vitamin B-12] Levothyroxine Sodium 88 mcg PO DAILY #30 tablet 08/28/18 04/12/19 Rx Mometasone/Formoterol 200/5 2 puff INH BID-RT #1 aer 08/28/18 04/12/19 Rx [Dulera 200 Mcg/5 Mcg Inhaler] Pantoprazole [Protonix] 40 mg PO DAILY #30 tab 08/28/18 04/12/19 Rx Polyethylene Glycol 3350 [Miralax] 17 gm PO DAILYPRN PRN pk 08/28/18 04/12/19 Rx Ondansetron HCl [Zofran] 8 mg PO Q8HR PRN 04/12/19 04/12/19 History Prochlorperazine Maleate 10 mg PO Q8HR PRN 04/12/19 04/12/19 History [Compazine] - History PMHx: Small Cell Lung Ca w/ new found Brain Mets, COPD, Dysthymia, Hypothyroidism, B12 deficiency PSHx: FHx: Mother- Cancer, Dad- CAD, Brother, Son passed 33 heart disease Social: smoked until , smoked over 30 years, occasional etoh, no illicit drug use. Code: DNR - Review of Systems General: reports: fatigue. denies: fever/chills, weight/appetite/sleep changes , night sweats Eyes: denies: eye pain, vision changes ENT: denies: nasal congestion, rhinorrhea Respiratory: denies: cough, congestion, shortness of breath, exercise intolerance Cardiovascular: denies: chest pain, palpitation, edema, paroxysmal nocturnal dyspnea, orthopnea Gastrointestinal: denies: nausea, vomiting, diarrhea, constipation, abdominal pain Genitourinary: denies: incontinence, dysuria, polyuria Skin: denies: rashes, lesions Musculoskeletal: denies: pain, tenderness, stiffness, arthritis/arthralgias Neurological: reports: seizure. denies: numbness, syncope, weakness Psychological: reports: depression. denies: anxiety - Vital signs BP: []122/84 HR: [108] RR: [18] Tmax: [99.2] Pox: [96]% on [2 L] Wt: [66 kg] - Physical Exam Constitutional: NAD, awake, alert and oriented (x3), well developed HEENT: normocephalic and atraumatic, grossly normal vision, grossly normal hearing, normal nasal mucosa, MMM Neck: supple, trachea midline, no LAD, no JVD Heart: normal S1/S2, no murmurs/rubs/gallops, no edema -Heart: Pt noted to be mildly tachycardic to 110's. Sinus rhythm. Pt reports this is chronic problem ever since being on chemo. Lungs: no respiratory distress, good air movement, no rales/rhonchi, no wheezing , no retractions -Lungs: Has some decreased breath sounds on the right side. Abdomen: soft, non-tender, bowel sounds present, no masses/distention, no hernias Musculoskeletal: normal structure, normal tone, ROM grossly normal Neurological: no focal deficit, CN II-XII intact, normal sensation, DTRs 2+, other (deng to heel test normal. Finger touch to nose normal. No signs of cerebellar stroke.) Skin: no rash/lesions, capillary refill <2 seconds Heme/Lymphatic: no unusual bruising or bleeding Psychiatric: normal mood and affect, good judgment and insight, intact recent and remote memory FMR H&P: Results - Labs Result Diagrams: 04/13/19 04:06 04/13/19 04:06 Lab results: WBC 7.5 thou/uL (4.8-10.8) 04/12/19 14:08 Hgb 11.7 g/dL (12.0-16.0) L 04/12/19 14:08 Hct 35.1 % (36.0-47.0) L 04/12/19 14:08 MCV 89.4 fL (78.0-98.0) 04/12/19 14:08 Plt Count 259 thou/uL (130-400) 04/12/19 14:08 Neutrophils % 81.5 % (42.0-75.0) H 04/12/19 14:08 Sodium 133 mmol/L (136-145) L 04/12/19 14:08 Potassium 3.6 mmol/L (3.5-5.1) 04/12/19 14:08 Chloride 98 mmol/L (98-107) 04/12/19 14:08 Carbon Dioxide 24 mmol/L (23-31) 04/12/19 14:08 BUN 10 mg/dL (9.8-20.1) 04/12/19 14:08 Creatinine 0.72 mg/dL (0.6-1.1) 04/12/19 14:08 Glucose 162 mg/dL (80-115) H 04/12/19 14:08 Calcium 9.5 mg/dL (7.8-10.44) 04/12/19 14:08 Total Bilirubin 0.5 mg/dL (0.2-1.2) 04/12/19 14:08 AST 17 U/L (5-34) 04/12/19 14:08 ALT 10 U/L (8-55) 04/12/19 14:08 Alkaline Phosphatase 109 U/L (40-110) 04/12/19 14:08 CK-MB (CK-2) 3.1 ng/mL (0-6.6) 04/12/19 14:00 Serum Total Protein 7.7 g/dL (6.0-8.3) 04/12/19 14:08 Albumin 4.2 g/dL (3.4-4.8) 04/12/19 14:08 - EKG Interpretation EKG: Sinus tachycardia. No significant ST changes noted. - Radiology Interpretation MRI - head Status: image reviewed by me, report reviewed by me (04/11 Chest/Ab/Pelvis CT- interval development of focal-mass like area of consolidation in peripheral aspect of RUL, measuring 14 mm, Infection vs malig. Stable R. suprahilar/hilar lung mass. No evidence of metastatic dz in ab/pelvis. 04/[address]- No acute process) CT scan - chest Status: image reviewed by me, report reviewed by me (04/11 Chest/Ab/Pelvis CT- interval development of focal-mass like area of consolidation in peripheral aspect of RUL, measuring 14 mm, Infection vs malig. Stable R. suprahilar/hilar lung mass. No evidence of metastatic dz in ab/pelvis.) CT scan - abdomen Status: image reviewed by me, report reviewed by me (see above) CT scan - pelvis Status: image reviewed by me, report reviewed by me (see above) CT scan - head Status: image reviewed by me, report reviewed by me (04/12- no acute process.) FMR H&P: A/P - Problem List (1) Tonic clonic seizures Current Visit: Yes Status: Acute Code(s): G40.409 - OTH GENERALIZED EPILEPSY , NOT INTRACTABLE, W/O STAT EPI (2) Brain metastasis Current Visit: Yes Status: Acute Code(s): C79.31 - SECONDARY MALIGNANT NEOPLASM OF BRAIN (3) Hypothyroidism Current Visit: Yes Status: Acute Code(s): E03.9 - HYPOTHYROIDISM, UNSPECIFIED (4) Elevated troponin Current Visit: Yes Status: Acute Code(s): R79.89 - OTHER SPECIFIED ABNORMAL FINDINGS OF BLOOD CHEMISTRY (5) Small cell carcinoma of right lung Current Visit: No Status: Acute Code(s): C34.91 - MALIGNANT NEOPLASM OF UNSP PART OF RIGHT BRONCHUS OR LUNG (6) Tobacco abuse Current Visit: No Status: Acute Code(s): Z72.0 - TOBACCO USE (7) JOSEPH (obstructive sleep apnea) Current Visit: No Status: Chronic Code(s): G47.33 - OBSTRUCTIVE SLEEP APNEA (ADULT) (PEDIATRIC) - Plan Tonic Clonic Seizure likely 2/2 Brain Mets and Edema -Reports 3.5 min episode with full body convulsion. Resolved on own. Recently dx with Brain Mets on 04/11 and vasogenic edema was noted. Was px dexamethasone but pt had not picked up px. -Prolactin elevated to 55 -Will start on Keppra 500 BID. Given 10 mg dose of Dexamethasone in ER. Will continue Dexamethasone tx 16 mg total daily split q6hrs over the course of 24 hrs. -Admit to stroke, seizure precautions placed -Pt had some neuro defecits noted before episode. Likely aura. No defecit noted on full neuro exam. Stroke team consulted to continue to evaluate for any underlying stroke -Neuro Consulted- follow recs -PT/OT/Speech consulted Elevated troponin Initial trop indeterminate .15. Pt has noted sinus tachy on EKG but this is known chronic issue. Pt denied any chest pain or SOB prior or after event. -Will continue to trend trop -Consider cardiology consult in AM Small Cell Lung Carcinoma -Consult Onc, sees Dr. Chahal- follow recs -Consult Rad/Onc, was to follow up with Dr. Murrieta- follow recs Hypothyroidism -TSH pending -cont home meds. Vitamin B12 deficincy Anemia -s/e of past chemo tx. -Hgb stable from past lab checks -continue b12 supplementation JOSEPH -continue cpap at night COPD -No signs or sx exacerbation -uses oxygen as needed at home -continue home meds Dysthymia -continue home meds DVT ppx: LovenoxWi GERD ppx: Famoitdine Dispo: Amdit to stroke inpatient. Consult Neuro and Onc team tmrw. Follow recs. Trend Troponin. Will order CPAP for night use. Use oxygen as needed. Addendum - Attending - Attending Attestation Date/Time: 04/12/19 1820 I personally evaluated the patient and discussed the management with Dr. Rice I agree with the History, Examination, Assessment and Plan documented above with any addition or exceptions noted below. 68 yo female with small cell lung cancer now with mets to brain sp seizure. Patient with tonic clonic seizure earlier today. Minimal post-ictal state. Reports some fatigue now. Denies aura. Notes headaches daily over the past week and a half. No associated symptoms but pain increasing. Frontal to occipital. Imaging noted mets with cerebral edema. Steroids started. Will admit patient to tele. Continue steroids with total dose of 16 mg per day. Pain meds as needed. Consult ONC in AM. Indeterminate trop on ER panel. Continue to trend. Asymptomatic. Denies muscle tenderness for suspicion of rhabdo. No EKG changes. Monitor on tele. Kimberly
[2019-04-12 19:40] LABS: Troponin I 1.226 ng/mL (< 0.028)
[2019-04-12 19:42] LABS: Bacteria/HPF 2+ HPF (None Seen); Bilirubin Negative (Negative); Blood, Urine Negative (Negative); Clarity Clear (Clear); Glucose, Urine (Dipstick) Normal (Negative); Leukocyte Negative Leu/uL (Negative); Nitrite Negative (Negative); Protein, Urine (Dipstick) 30 mg/dL (Neg-Trace); RBC/HPF 0-3 HPF (0-3); Squamous Epithelial 0-3 HPF (0-3); Urobilinogen Normal mg/dL (Less than 2); WBC/HPF 0-3 HPF (0-3)
[2019-04-12] MEDS ORDERED: Bisacodyl 5 MG TAB PO PRN (21:01)
[2019-04-12] MEDS ORDERED: Senokot S 8.6-50 MG TAB PO PRN (21:01)
[2019-04-12] MEDS ORDERED: Acetaminophen 650 MG Suppository PR PRN (21:01)
[2019-04-12] MEDS ORDERED: Ondansetron PF 4 MG/2 ML Vial IVP PRN (21:01)
[2019-04-12] MEDS ORDERED: Ondansetron ODT 4 MG TAB PO PRN (21:01)
[2019-04-12] MEDS ORDERED: Acetaminophen 325 MG TAB PO PRN (21:01)
[2019-04-12] MEDS ORDERED: Enoxaparin Sodium 40 MG/0.4 ML SYRINGE SC SCH (21:01)
[2019-04-12 22:22] VITALS: BMI 24.5
[2019-04-12 22:29] LABS: CKMB 9.5 ng/mL (0-6.6)
[2019-04-12] MEDS ORDERED: Famotidine 20 MG TAB PO SCH (23:00)
[2019-04-12] MEDS ORDERED: Enoxaparin Sodium 80 MG/0.8 ML SYRINGE SC SCH (23:00)
[2019-04-12] MEDS ORDERED: Citalopram 10 MG TAB PO SCH (23:15)
[2019-04-12] MEDS: Dexamethasone 4 mg/ml Vial SLOW IVP SCH (23:59)
[2019-04-13 04:18] LABS: #Lymphocytes 0.4 thou/uL (1.20-3.40); #Monocytes 0.2 thou/uL (0.11-0.59); %Basophils 0.5 % (0.0-1.0); %Lymphocytes 8.5 % (21.0-51.0); Hemoglobin 12.2 g/dL (12.0-16.0); Mean Corpuscular HGB CONC 33.2 g/dL (32.0-36.0); Mean Corpuscular Hemoglobin 29.2 pg (27.0-31.0); Mean Platelet Volume 7.5 fL (7.4-10.4); Platelet Count 274 thou/uL (130-400); RBC Distribution Width 12.5 % (11.5-14.5); Red Blood Cell (RBC) Count 4.17 mill/uL (4.20-5.40); White Blood Cell (WBC) Count 4.6 thou/uL (4.8-10.8)
[2019-04-13 04:44] LABS: ALT (SGPT) 11 U/L (8-55); AST (SGOT) 26 U/L (5-34); Albumin 4.1 g/dL (3.4-4.8); Alkaline Phosphatase 106 U/L (40-110); Anion Gap 13 mmol/L (10-20); BUN (Urea Nitrogen) 11 mg/dL (9.8-20.1); Bilirubin, Total 0.4 mg/dL (0.2-1.2); Calc. Creatinine Clearance 86 mL/min (70-130); Calcium 9.8 mg/dL (7.8-10.44); Carbon Dioxide 21 mmol/L (23-31); Chloride 102 mmol/L (98-107); Estimated GFR-MDRD Greater than 90; Globulin 3.5 g/dL (2.4-3.5); Glucose 150 mg/dL (80-115); Potassium 4.2 mmol/L (3.5-5.1); Protein, Total 7.6 g/dL (6.0-8.3); Sodium 132 mmol/L (136-145)
[2019-04-13] MEDS: Dexamethasone 4 mg/ml Vial SLOW IVP SCH ×3 (05:56→17:50)
--- NOTE | 2019-04-13 06:34 | PDOC.FM ---
Addendum entered and electronically signed by Chris Otto MD 04/13/19 11:26: Correction Elevation in EKG in Leads 1,2,3 does not meet criteria. Original Note: - Subjective Subjective: She says she feels much better this morning and much more together today. She said she could not think straight yesterday. She slept well last night. - Objective Vital Signs & Weight: Vital Signs (12 hours) Temp Pulse Resp BP Pulse Ox 04/13/19 03:34 97.6 F 72 16 103/75 97 04/12/19 23:35 97.3 F L 80 16 97/72 96 04/12/19 22:52 96 04/12/19 22:20 98.9 F 94 18 114/78 94 L Weight Weight 66.905 kg Result Diagrams: 04/13/19 04:06 04/13/19 04:06 Phys Exam - Physical Examination Constitutional: NAD HEENT: PERRLA, moist MMs Neck: no nodes, supple, full ROM Respiratory: clear to auscultation bilateral Cardiovascular: RRR, no significant murmur Gastrointestinal: soft, non-tender, positive bowel sounds Musculoskeletal: no edema, pulses present Neurological: non-focal, normal sensation, moves all 4 limbs Lymphatic: no nodes Psychiatric: normal affect, A&O x 3 Skin: no rash Dx/Plan (1) Brain metastasis Code(s): C79.31 - SECONDARY MALIGNANT NEOPLASM OF BRAIN Status: Acute (2) Elevated troponin Code(s): R79.89 - OTHER SPECIFIED ABNORMAL FINDINGS OF BLOOD CHEMISTRY Status : Acute (3) Hypothyroidism Code(s): E03.9 - HYPOTHYROIDISM, UNSPECIFIED Status: Acute (4) Tonic clonic seizures Code(s): G40.409 - OTH GENERALIZED EPILEPSY, NOT INTRACTABLE, W/O STAT EPI Status: Acute - Plan Plan: 68 you with pmh of 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 1. Tonic Clonic Seizure likely 2/2 Brain Mets and Edema * Reports 3.5 min episode with full body convulsion. Resolved on own. Recently dx with Brain Mets on 04/11 and vasogenic edema was noted. Was px dexamethasone but pt had not picked up px. * Prolactin elevated to 55 * Will start on Keppra 500 BID. Given 10 mg dose of Dexamethasone in ER. Will continue Dexamethasone tx 16 mg total daily split q6hrs over the course of 24 hrs. * Admit to stroke, seizure precautions placed * Pt had some neuro defecits noted before episode. Likely aura. No deficit noted on full neuro exam. Stroke team consulted to continue to evaluate for any underlying stroke * Neuro Consulted, appreciate recs * PT/OT/Speech consulted 2. Elevated troponin Trops: 0.15 > 1.226 > 1.360 > 1.159 * Pt has noted sinus tachy on EKG but this is known chronic issue. * Pt denied any chest pain or SOB prior or after event. * EKG this am shows elevation in leads 1,2,3 * Cardiology consulted 3. Small Cell Lung Carcinoma * Consult Onc, sees Dr. Chahal. Will consult today. * Consult Rad/Onc, was to follow up with Dr. Ren tmrw. Will consult today 4. Hypothyroidism * TSH pending * cont home meds. 5. Vitamin B12 deficincy Anemia * s/e of past chemo tx. * Hgb stable from past lab checks * continue b12 supplementation 6. JOSEPH * continue cpap at night 7. COPD * No signs or sx exacerbation * uses oxygen as needed at home * continue home meds 8. Dysthymia * continue home meds Code Status: DNR DVT ppx: Lovenox GERD ppx: Famoitdine PCP: [facility] Dispo: Stroke inpatient. Consulted Cards, Onc, and Rad/onc today. Will await recommendations. Addendum - Attending - Attending Attestation Date/Time: 04/13/19 5323 I personally evaluated the patient and discussed the management with the team. I agree with the History, Examination, Assessment and Plan documented above with any addition or exceptions noted below.
[2019-04-13 07:04] LABS: Troponin I 1.159 ng/mL (< 0.028)
[2019-04-13] MEDS: Famotidine 20 MG TAB PO SCH ×2 (08:45→20:55)
[2019-04-13] MEDS ORDERED: Enoxaparin Sodium 80 MG/0.8 ML SYRINGE SC SCH (09:00)
[2019-04-13] MEDS ORDERED: Dexamethasone 10 MG/ML VIAL SLOW IVP SCH (09:00)
[2019-04-13] MEDS ORDERED: Enoxaparin Sodium 40 MG/0.4 ML SYRINGE SC SCH (09:00)
--- NOTE | 2019-04-13 11:46 | CON ---
DATE OF CONSULTATION: 04/13/2019 INDICATION FOR CONSULTATION: A 68-year-old female, who has a history of metastatic brain cancer, recently diagnosed with new brain mets, had a seizure, was admitted to the hospital and cardiac enzymes were obtained. She was found to have slight abnormality to cardiac enzymes with elevated troponin I. She also has some abnormal EKG changes. She has what appears to be already has a decreased R-wave progression in V1 through V3, with a small R-wave in V3 with some nonspecific ST-segment changes, which may be due to the seizure. She denies any chest pain. She has had no previous cardiac history, but she does have a history of smoking in the past. At this time, she has no other complaints. She did receive radiation therapy earlier this year for her lung cancer as well as chemotherapy. She has a small cell cancer. She had been on cisplatin. Otherwise, there has been no history of cardiac disease in the past. She has had no chest pain associated with this and no significant shortness of breath other than what is her normal due to the lung cancer. PAST MEDICAL HISTORY: Significant for the lung cancer. She also has a history of hypothyroidism and some B12 deficiency. FAMILY HISTORY: Her mother had of cancer. Her father did have some history of coronary artery disease. She had a son, who at age 33, also from heart disease. She has a brother, who has some coronary artery disease. SOCIAL HISTORY: She lives with a cousin. She has occasional alcohol use. She smoked in the past. REVIEW OF SYSTEMS: Please refer the notes already dictated. She had no other significant complaints from a cardiac standpoint. She has no claudication symptoms. No significant shortness of breath except was her normal and she had no GI or complaints. MEDICATIONS: Prior to admission included; 1. Tylenol. 2. Ventolin inhaler. 3. As well as, has some just vitamins and p.r.n. medications. No other significant medications. ALLERGIES: SHE HAS HAD SOME ALLERGY TO CIPRO, AND ALSO SHE HAS GLUTEN INTOLERANCE. PHYSICAL EXAMINATION: GENERAL: Reveals a well-developed, well-nourished female. She has a turban on most likely due to hair loss. VITAL SIGNS: Her blood pressure is 93/60 and heart rate is in the 70s, which shows a sinus rhythm. Respiratory rate 16 and O2 saturation is 93% on room air. HEENT: Shows the head to be normocephalic and atraumatic. Carotid pulses are present. There are no bruits. CHEST: Shows to be clear. I did not hear any rales, rhonchi, or wheezing. CARDIOVASCULAR: Reveals a regular rate and rhythm. She has a normal S1 and S2. There were no significant murmurs, heaves, thrills, bruits, or rubs. ABDOMEN: Soft and nontender. EXTREMITIES: Showed no clubbing, cyanosis, or edema. NEUROLOGIC: At this time, she appears to be stable. She is coherent. She has normal strength and tone. SKIN: Warm and dry. LABORATORY DATA: Shows a WBC of 4.6, hemoglobin was 12.2, and platelet count was 274,000. Her sodium was 132, potassium 4.2, BUN was 11, creatinine 0.64, and blood sugar was 150. Her troponin I was 1.2, increased up to 1.3 and is back down to 1.1. Her MB was 9.5. EKG shows a sinus rhythm with decreased R-wave progression in V1 through V3 with some nonspecific ST-segment changes, which could be compatible with some anterolateral ischemia. ASSESSMENT AND PLAN: Given the fact that this patient is a DNR, she has had a recent seizure and she has no chest pain and no previous cardiac history. She does have risk factors for coronary artery disease. Since the enzymes tend to be trending downward, I would certainly be concerned about the patient whereas her brain mets are concerned and she has been seen I believe also by the radiation oncologist and most likely will undergo radiation to the areas. At this time, we will continue to follow the patient, we can treat her medically. I am somewhat hesitant to start her on any anticoagulation. We will need to discuss this with the oncologist whether or not these lesions could become hemorrhagic, but since she is having no significant chest pain, we just continue to trend the enzymes. Her heart rate is in the 70s. She may not tolerate beta blockers and her blood pressure is also on the low side. We will await the results of the echocardiogram prior to further recommendations, but at this time, I would just continue to monitor the patient and treat her as you are. Hopefully, the enzymes are just a reflection of the seizure activity that was experienced. Job ID: [id number]
[2019-04-13] MEDS ORDERED: Citalopram 10 MG TAB PO SCH (12:15)
--- NOTE | 2019-04-13 16:40 | CON ---
DATE OF CONSULTATION: REASON FOR CONSULTATION: Small-cell lung cancer. HISTORY OF PRESENT ILLNESS: Ms. Burnett is a pleasant 68-year-old female, who has limited stage small-cell lung cancer of the right lung. She completed concurrent chemoradiation in November of 2018. In December, she had an MRI of the brain, which showed no metastatic disease. She had a routine scan on April 11, of her brain. It showed interval development of 2 enhancing intra-axial masses. One is a 1.5 cm left-sided posterior frontoparietal lesion laterally, and the other is a 2.2 cm enhancing lesion within the right cerebellar hemisphere. There is vasogenic edema present. She was seen by Dr. Chahal yesterday, and a prescription for dexamethasone was sent. When she left the office, she went back to her pharmacy to brain picker the medication. It was not ready, so she went home. Shortly thereafter, she began to have some altered mental status and then had a witnessed seizure. EMS was called. The patient was brought to the emergency room for further treatment. She was given a dose of Keppra and started on dexamethasone. She has had no seizure since admission. The patient has an appointment with Dr. Ren tomorrow to discuss whole-brain radiation. She currently denies any complaints. No headache, visual changes, or pain. PAST MEDICAL HISTORY: 1. Metastatic small-cell carcinoma with brain lesions. 2. Arthritis. 3. Depression. 4. Hypothyroidism. 5. Acid reflux. 6. Sleep apnea. PAST SURGICAL HISTORY: 1. Vaginal hysterectomy. 2. Oophorectomy. 3. Bilateral mastectomy. 4. Anal fistulotomy. ALLERGIES: CIPRO. HOME MEDICATIONS: 1. Tylenol. 2. Citalopram. 3. Compazine. 4. B12. 5. Dulera. 6. Zofran. 7. Protonix. 8. Synthroid. 9. Inhaler. FAMILY HISTORY: Mother had ovarian cancer. SOCIAL HISTORY: , lives alone. [id number]-[id number] history of smoking. No alcohol or illicit drug use. REVIEW OF SYSTEMS: Ten-point review of systems is negative except for noted in the HPI. PHYSICAL EXAMINATION: VITAL SIGNS: Temperature 98.8, pulse is 103, respiratory rate is 16, BP is 108/75. She is 95% on room air. GENERAL: This is a well-developed, well-nourished female, in no acute distress. HEENT: Normocephalic and atraumatic. Pupils are equal and reactive to light. NECK: Supple. CV: Regular rate and rhythm. LUNGS: Clear. ABDOMEN: Soft and nontender. Bowel sounds are positive. EXTREMITIES: No clubbing or cyanosis. SKIN: No rash. HEMATOLOGICAL: No petechiae or purpura. NEUROLOGIC: Nonfocal. PERTINENT LABS AND X-RAYS: Current WBCs 4.6, hemoglobin 12.2, hematocrit 36.7, platelet count 274,000, 87% neutrophils, 8.5% lymphocytes. Sodium is 132, potassium 4.2, chloride 102, CO2 is 21, BUN is 11, creatinine 0.64, calcium 9.8, bilirubin 0.4, AST is 26, ALT is 11, alkaline phosphatase is 106. CK-MB is 9.5, troponin 1.159. Serum total protein 7.6, albumin 4.1, globulin 3.5. TSH is 0.3348. Urine showed 2+ bacteria. Brain CT showed vasogenic edema in the right cerebellar region. ASSESSMENT: 1. New onset seizure secondary to metastatic brain lesions. 2. Small-cell lung cancer of the right lung, status post CCRT. 3. Ischemia likely secondary to seizure activity. DISCUSSION: The patient has been started on Keppra and dexamethasone. No seizure activity since arrival. She is due to see Dr. Ren for consultation for her new brain lesions. This is wanted to be rescheduled. Await Neurology consult. The patient has prescription for dexamethasone, which she will continue when she is discharged from this facility. Case has been discussed with Dr. Chahal. No further acute inpatient recommendations. Thank you for the consult. Job ID: [id number]
[2019-04-13] MEDS ORDERED: Atorvastatin Calcium 40 MG TAB PO SCH (21:00)
--- NOTE | 2019-04-13 21:14 | CON ---
DATE OF CONSULTATION: 04/13/2019 CONSULTING PHYSICIAN: Hospitalist Service. 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 PLAN: 1. Continue Keppra 500 mg twice a day. 2. The patient can be discharged home for outpatient radiation therapy. HISTORY OF PRESENT ILLNESS: Ms. Burnett is a 68-year-old white female with a history of small cell lung cancer. She has been treated with chest radiation and chemotherapy. She has been monitored closely for signs of recurrence. She reports that three months ago her MRI of the brain was clean. She had a recent MRI of the brain done by Oncology and was found to have evidence of brain metastasis. She was ordered some Decadron, which was not started. She returned home after the office visit and was sitting in the house. She suddenly lost consciousness. Her friend reports that she had a generalized tonic-clonic seizure lasting about 3 minutes. She does not recall anything until she awoke at the hospital. Her CT of the brain showed a right cerebellar and left posterior frontal area of mild edema. She feels back to her baseline now. She is without any complaints of headache, nausea, vomiting, vertigo, confusion, or difficulty with vision or movement. PAST MEDICAL HISTORY: Small cell lung cancer, COPD, B12 deficiency. ALLERGIES: CIPROFLOXACIN. MEDICATION: List reviewed. SOCIAL HISTORY: She was living independently at home. She does not drink or use any drugs. FAMILY HISTORY: Noncontributory. REVIEW OF SYSTEMS: Ten-system review of systems is otherwise negative. PHYSICAL EXAMINATION: GENERAL: She is an alert, elderly lady, bright and appropriate. HEENT: Pupils are equal. Conjunctivae are clear. Oropharynx is clear. NECK: Supple. No lymphadenopathy. EXTREMITIES: No cyanosis, clubbing, edema. NEUROLOGIC: She is alert and appropriate. Her speech is fluent and clear. Cranial nerves are intact. Motor exam shows good microfilm mounter strength bilaterally. There is no fix or drift. She has no tremor or dysmetria present. Sensation is intact to light touch. She can walk independently. SUMMARY: Unfortunate lady with brain metastasis from small cell lung cancer. Hopefully, the Keppra will maintain control the seizures. I would be happy to follow her as an outpatient for monitoring her medication. Job ID: [id number]
--- NOTE | 2019-04-14 00:09 | CON ---
DATE OF CONSULTATION: REASON FOR CONSULTATION: Ms. 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 HISTORY OF PRESENT ILLNESS: Ms. Burnett is known to me. She was diagnosed with a limited stage, clinical stage IIIB, T3 N2 M0 small cell carcinoma of the right upper lobe of the lung and was treated with concurrent chemotherapy and radiation. Her radiation was completed on 11/04/2018 and was given 66 Gy. Since that time, she has been on surveillance. We discussed the option of prophylactic cranial radiation, but ultimately we both mutually elected not to proceed with this treatment. Earlier this week, she underwent a restaging CT scan of the chest, abdomen, and pelvis as well as an MRI of the brain. The CT scan showed some fullness in the right hilar area of unknown significance. MRI of the brain, however, showed 2 contrast-enhancing lesions with some surrounding vasogenic edema consistent with metastasis. She was going to be placed on steroids after she saw Dr. Chahal yesterday, but before she could car pick up driver the medicine from the pharmacy, she experienced a seizure that was witnessed and was brought to the emergency room. Since that time, she has been placed on steroids and antiseizure medications and has had no further difficulties with seizures. She does admit that she has been having some mild headaches, but these are much improved since starting the dexamethasone. Her thinking has been clear today. I have been asked to see her to discuss her options for treatment. Presently, she denies any focal weakness or numbness. She has no nausea or vomiting. She has no new areas of pain and voices no other complaints. PAST MEDICAL HISTORY: 1. Small cell lung cancer as mentioned above. 2. COPD. 3. Sleep apnea. 4. Hypothyroidism. 5. History of gastritis/hiatal hernia. 6. Status post vaginal hysterectomy and bilateral salpingo-oophorectomy. 7. Status post appendectomy. 8. Status post bilateral mastectomy with implant reconstruction for fibrocystic disease. 9. Status post anal fistulotomy. MEDICATIONS: 1. Lipitor. 2. Dulcolax. 3. Dexamethasone. 4. Lovenox. 5. Pepcid. 6. Keppra. 7. Zofran p.r.n. ALLERGIES: CIPRO, WHICH CAUSES ANXIETY AND GLUTEN, WHICH CAUSES HIVES. SOCIAL HISTORY: She previously smoked 1/2 pack per day for 30 years, but has not smoked for the past 6 months or so. She has no alcohol use. She lives with a cousin here in town. She is retired. FAMILY HISTORY: Her mother had ovarian cancer but at age 76 from complication of surgery for a blocked artery in her intestine. Her father at age 45 from a car accident. There is no other family history of malignancy. REVIEW OF SYSTEMS: Twelve-system review of systems is otherwise negative. PHYSICAL EXAMINATION: VITAL SIGNS: Height 5 feet 5 inches, weight 147 pounds, blood pressure 101/58, pulse is 86, respirations 16, temperature 97.4, O2 saturation is 92% on room air. GENERAL: She is alert and oriented and in no apparent distress. She is well developed and well nourished. Karnofsky performance status is in 80%. EYES: Pupils are equal, round, and reactive to light. Extraocular movements are intact. ENT: Oral cavity and oropharynx normal without lesion or erythema. Palate elevates symmetrically. Gingiva is intact. NECK: Supple without cervical or supraclavicular adenopathy. No thyromegaly. Larynx midline. LUNGS: Breathing nonlabored. Clear to auscultation and percussion. CARDIOVASCULAR/HEART: Regular rate and rhythm without murmur. No lower extremity edema. BACK: No tenderness on fist percussion of her spine. LYMPHATIC: No axillary or inguinal adenopathy. ABDOMEN: Soft, nontender, nondistended without mass or hepatosplenomegaly. Liver percusses to normal size. SKIN: Without rash or purpura. NEUROLOGIC: Cranial nerves 2 through 12 are grossly intact. Motor strength is 5/5 in both upper and lower extremities in all muscle groups tested. Reflexes are normal and symmetrical. Gait was not tested. LABORATORY DATA: CBC revealed a white blood cell count of 4600 with a hemoglobin of 12.2, hematocrit of 36.7, and platelet count of 274,000. Chemistry group showed normal electrolytes. Her troponin I has been elevated as was her CK-MB. RADIOLOGIC: Recent MRI of the brain and CT scan of the chest, abdomen, and pelvis were all personally reviewed. The CT scan shows a soft-tissue density and thickening in the right hilar and suprahilar region adjacent to the superior vena cava of unknown significance. There was no definite evidence of other distant metastatic disease. MRI of the brain showed 2 contrast-enhancing lesions. One was 1.5 cm in the left frontoparietal area and the other was 2.2 cm in the right cerebellar hemisphere. There was surrounding vasogenic edema. ASSESSMENT: Ms. 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 PLAN: I do agree with initiation of dexamethasone as well as Keppra to prevent seizures since she has had a seizure. Symptomatically, she has improved since starting these medications. It is my understanding there is a possibility that she may be discharged tomorrow. I would discharge her on dexamethasone 4 mg t.i.d. as well as either Protonix or Pepcid. I had a discussion with Ms. Burnett and her family and friends with her regarding the treatment for her brain metastasis. I think she should be treated with whole-brain radiation therapy. The logistics of radiation as well as the benefits and risk of treatment were discussed. The simulation and daily treatment procedure were discussed. Side effects would include but not be limited to skin reaction, fatigue, lower blood counts, headache, nausea, vomiting, small risk of fluid behind the ears, small risk of damage to her brain, and possible small risk of cognitive or memory effects from the radiation therapy. Time was taken for all of her questions regarding radiation therapy. I did recommend that she take Namenda along with the radiation therapy, which has been shown to reduce cognitive effects from the radiation. Of course, the consideration of cognitive effects must be weighed against the fact that if she has progressive disease or develops additional brain metastasis, she would likely have cognitive difficulties from that. She is agreeable to proceed with the Namenda as well as with the radiation therapy as recommended to her. She will start the Namenda as an outpatient. If she is discharged tomorrow, we may make arrangements for her to undergo simulation tomorrow over the cancer center. We will start treatment early next week. Thank you for this interesting consultation. Job ID: [id number]
[2019-04-14] MEDS: Dexamethasone 4 mg/ml Vial SLOW IVP SCH ×3 (00:47→12:23)
[2019-04-14] MEDS ORDERED: Benzonatate 100 MG CAP PO PRN (05:32)
[2019-04-14] MEDS ORDERED: PROVENTIL INHALER 6.7 G (200 INHALATIONS) INH PRN (05:32)
--- NOTE | 2019-04-14 05:41 | PDOC.FM ---
- Subjective Subjective: Pt is doing well this morning. She has no complaints. She is eating and sleeping well. She says she is ready to go home. - Objective MAR Reviewed: Yes Vital Signs & Weight: Vital Signs (12 hours) Temp Pulse Resp BP Pulse Ox 04/14/19 03:12 97.7 F 68 20 93/58 L 93 L 04/13/19 23:20 99 F 73 18 102/65 96 04/13/19 19:22 98.6 F 82 18 92/59 L 93 L Weight Admit Weight 66.905 kg Weight 66.905 kg I&O: 04/12/19 04/13/19 04/14/19 06:59 06:59 06:59 Intake Total 840 Balance 840 Result Diagrams: 04/13/19 04:06 04/13/19 04:06 Phys Exam - Physical Examination Constitutional: NAD HEENT: PERRLA, moist MMs Neck: supple, full ROM Respiratory: clear to auscultation bilateral Cardiovascular: RRR, no significant murmur Gastrointestinal: soft, non-tender, positive bowel sounds Musculoskeletal: pulses present Neurological: normal sensation, moves all 4 limbs Psychiatric: normal affect Skin: no rash Dx/Plan (1) Brain metastasis Code(s): C79.31 - SECONDARY MALIGNANT NEOPLASM OF BRAIN Status: Acute (2) Elevated troponin Code(s): R79.89 - OTHER SPECIFIED ABNORMAL FINDINGS OF BLOOD CHEMISTRY Status : Acute (3) Hypothyroidism Code(s): E03.9 - HYPOTHYROIDISM, UNSPECIFIED Status: Acute (4) Tonic clonic seizures Code(s): G40.409 - OTH GENERALIZED EPILEPSY, NOT INTRACTABLE, W/O STAT EPI Status: Acute - Plan Plan: 68 you with pmh of 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 1. Tonic Clonic Seizure likely 2/2 Brain Mets and Edema * Reports 3.5 min episode with full body convulsion. Resolved on own. Recently dx with Brain Mets on 04/11 and vasogenic edema was noted. Was px dexamethasone but pt had not picked up px. * Prolactin elevated to 55 * Will start on Keppra 500 BID. Given 10 mg dose of Dexamethasone in ER. Will continue Dexamethasone tx 16 mg total daily split q6hrs over the course of 24 hrs. * Admit to stroke, seizure precautions placed * Pt had some neuro defecits noted before episode. Likely aura. No deficit noted on full neuro exam. Stroke team consulted to continue to evaluate for any underlying stroke. * Neuro Consulted, appreciate recs. * Recommendation: No change in management, will follow up outpatient as needed. * PT/OT/Speech: Signed off. Pt is meeting goals. 2. Elevated troponin 2/2 Demand Ischemia Trops: 0.15 > 1.226 > 1.360 > 1.159 * Pt has noted sinus tachy on EKG but this is known chronic issue. * Pt denied any chest pain or SOB prior or after event. * On ASA & Atorvastatin * EKG this am shows elevation in leads 1,2,3 * Cardiology consulted, appreciate recs. * Recommendation: Echo, but would like to discuss anticoagulation with oncology * Echo this morning 3. Small Cell Lung Carcinoma * Consult Onc, sees Dr. Chahal, appreciate recs. * Discussed case with Dr. Chahal and he believes troponin elevation is Demand ischemia. * Recommendation: Discontinue therapeutic lovenox and return to prophylactic lovenox * Consult Rad/Onc, was to follow up with Dr. Ren 04/14, appreciate recs. * Recommendation: Discharge on 4 mg TID of Dexamethasone, Protonix or Pepcid, Start Namenda, Whole brain radiation, and if discharged on 04/14 begin radiation on 04/14. 4. Hypothyroidism * TSH: 0.3348, which is low * Will increase home meds this morning. * cont home meds. 5. Vitamin B12 deficiency Anemia Hgb: 12.2, MCV: 88 * s/e of past chemo tx. * Hgb stable from past lab checks * continue b12 supplementation 6. JOSEPH * continue cpap at night 7. COPD * No signs or sx exacerbation * uses oxygen as needed at home * continue home meds 8. Dysthymia * continue home meds Code Status: DNR DVT ppx: Lovenox GERD ppx: Famoitdine PCP: [facility]po: Stroke inpatient, echo still pending. Will get cardiology recommendations and evaluate for discharge. Addendum - Attending - Attending Attestation Date/Time: 04/14/19 4748 I personally evaluated the patient and discussed the management with the residents. I agree with the History, Examination, Assessment and Plan documented above with any addition or exceptions noted below. Please note we will Decrease synthroid dose.
[2019-04-14] MEDS ORDERED: Levothyroxine Sodium 88 MCG TAB PO SCH (06:00)
[2019-04-14] MEDS ORDERED: Mometasone/Formoterol 120 PUFF INHALER INH SCH (06:30)
[2019-04-14] MEDS ORDERED: Enoxaparin Sodium 40 MG/0.4 ML SYRINGE SC SCH (09:00)
[2019-04-14] MEDS ORDERED: Cyanocobalamin 1000 MCG/ML VIAL IM SCH (09:00)
[2019-04-14] MEDS: Famotidine 20 MG TAB PO SCH (10:03)
--- NOTE | 2019-04-14 13:14 | PDOC.CPN ---
- Subjective Date: 04/14/19 Time: 13:22 Interval history: The pt seen and examined. No overnight events. No cardiac complaints. - Objective Allergies/Adverse Reactions: Allergies Allergy/AdvReac Type Severity Reaction Status Date / Time ciprofloxacin [From Cipro] Allergy Severe Anxiety Verified 08/22/18 18:24 gluten Allergy Severe Hives Verified 04/12/19 22:27 Visit Medications: Current Medications Acetaminophen (Tylenol) [address] Q4H PRN PRN Reason: Headache/Fever/Mild Pain (1-3) Acetaminophen (Tylenol) 650 mg PO Q4H PRN PRN Reason: Headache/Fever/Mild Pain (1-3) Albuterol Sulfate (Proventil Hfa) 2 puff INH Q4H PRN PRN Reason: SOB &/or Wheezing Aspirin (Ecotrin) 81 mg PO DAILY [facility] Atorvastatin Calcium (Lipitor) 40 mg PO HS [facility] Last Admin: 04/13/19 20:55 Dose: 40 mg Benzonatate (Tessalon) 100 mg PO TIDPRN PRN PRN Reason: Cough Bisacodyl (Dulcolax) 10 mg PO DAILYPRN PRN PRN Reason: Constipation Citalopram Hydrobromide (Celexa) 10 mg PO HS [facility] Cyanocobalamin (Vitamin B-12) 1,000 mcg IM Q28D@0900 [facility] Last Admin: 04/14/19 10:03 Dose: 1,000 mcg Dexamethasone (Decadron) 4 mg SLOW IVP Q6HR [facility] Last Admin: 04/14/19 12:23 Dose: 4 mg Enoxaparin Sodium (Lovenox) 40 mg SC 0900 [facility] Last Admin: 04/14/19 10:03 Dose: 40 mg Famotidine (Pepcid) 20 mg PO BID [facility] Last Admin: 04/14/19 10:03 Dose: 20 mg Levetiracetam 500 mg/ Device 100 mls @ 200 mls/hr IVPB BID [facility] Last Admin: 04/14/19 10:04 Dose: 100 mls Levothyroxine Sodium (Synthroid) 75 mcg PO 0600 [facility] Mometasone Furoate/Formoterol Fumar (Dulera 200 Mcg/5 Mcg Inhaler) 2 puff INH BID-RT [facility] Last Admin: 04/14/19 06:45 Dose: 2 puff Ondansetron HCl (Zofran Odt) 4 mg PO Q6H PRN PRN Reason: Nausea/Vomiting Ondansetron HCl (Zofran) 4 mg IVP Q6H PRN PRN Reason: Nausea/Vomiting Senna/Docusate Sodium (Senokot S) 2 tab PO BID PRN PRN Reason: Constipation Sodium Chloride (Flush - Normal Saline) 10 ml IVF PRN PRN PRN Reason: Saline Flush Vital Signs & Weight: Vital Signs Temp Pulse Resp BP Pulse Ox 04/14/19 11:36 98 F 79 16 95/64 92 L 04/14/19 07:44 97.9 F 72 16 97/59 L 92 L 04/14/19 03:12 97.7 F 68 20 93/58 L 93 L Admit Weight 147 lb 8 oz Weight 147 lb 8 oz - Physical Exam General: alert & oriented x3 HEENT: mucus membranes moist Neck: supple neck Cardiac: regular rate and rhythm, S1/S2 Lungs: clear to auscultation, decreased breath sounds Neuro: cranial nerve 2-12 intact - Labs Result Diagrams: 04/13/19 04:06 04/13/19 04:06 Troponin/CKMB CK-MB (CK-2) 9.5 ng/mL (0-6.6) H* 04/12/19 21:43 Troponin I 1.159 ng/mL (< 0.028) H* 04/13/19 04:10 - Telemetry Sinus rhythms and dysrhythmias: sinus rhythm - Assessment/Plan Assessment/Plan: 1. Elevated troponin 2/2 Demand Ischemia possible from seizure - The pt is asymptomatic; waiting for Echo result, but would like to discuss anticoagulation with oncology 2. Tonic Clonic Seizure likely 2/2 Brain Mets and Edema - managed by neurologist 3. Brain mets - the pt will have brain marker today for radiation in the future 4. Small Cell Lung Carcinoma - 5. Hypothyroidism 6. COPD 7. JOSEPH with Cpap at HS 8. Vitamin B12 deficiency Anemia MAR reviewed I agree with the A/P by the INSTRUMENT AND ELECTRICAL TECHNICIAN.The echo indicates a normal EF but apical hypokinesis/akinesis was noted. The increased T.I. was likely due to the seizure. Okay to d/c from a cardiac standpoint. She is welcome to f/u as an oiutpt. chanel
--- NOTE | 2019-04-14 14:48 | PDOC.MOPN ---
Interval History: doing well, joking. No neurological symptoms, no seizures - Vital Signs Vital Signs: Vital Signs (12 hours) Temp Pulse Resp BP Pulse Ox 04/14/19 11:36 98 F 79 16 95/64 92 L 04/14/19 07:44 97.9 F 72 16 97/59 L 92 L 04/14/19 03:12 97.7 F 68 20 93/58 L 93 L Weight Admit Weight 147 lb 8 oz Weight 147 lb 8 oz - Physical Exam General: Alert, Oriented x3, No acute distress HEENT: Atraumatic, PERRLA, EOMI, Mucous membr. moist/pink Lungs: Clear to auscultation, Normal air movement Cardiovascular: Regular rate, Normal S1, Normal S2, No murmurs, Gallops, Rubs Abdomen: Normal bowel sounds, Soft, No tenderness, No hepatospenomegaly, No masses Extremities: No clubbing, No cyanosis, No edema, Normal pulses, No tenderness/ swelling Skin: No rashes, No breakdown, No significant lesion Neurological: Normal speech - Labs Result Diagrams: 04/13/19 04:06 04/13/19 04:06 Status: lab reviewed by me A/P - Problem (1) Brain metastasis Current Visit: Yes Code(s): C79.31 - SECONDARY MALIGNANT NEOPLASM OF BRAIN Status: Acute - Plan Plan: had simulation for radiation today ok to dc home. will start xrt on Wednesday Continue steroids, keppra at home.
[2019-04-14 15:52] VITALS: BP 103/77; TEMP 98.6
[2019-04-14] MEDS ORDERED: Citalopram 10 MG TAB PO SCH (21:00)
[2019-04-15] MEDS ORDERED: Levothyroxine Sodium 75 MCG TAB PO SCH (06:00)
[2019-04-15] MEDS ORDERED: Levothyroxine Sodium 100 MCG TAB PO SCH (06:00)
[2019-04-15] MEDS ORDERED: Aspirin 81 mg Enteric Coated Tablet PO SCH (09:00)
== END 2019-04-14 17:25 | disposition home or self-care (01) | DRG 54 ==
LOC: ERS 13:05 → 2SE 21:27
PROVIDERS: ADMIT Family Medicine; ATTEND Family Medicine
DX: C79.31 Secondary malignant neoplasm of brain (principal); G93.6 Cerebral edema; C34.90 Malignant neoplasm of unspecified part of unspecified bronchus or lung; I24.8 Other forms of acute ischemic heart disease; G40.409 Other generalized epilepsy and epileptic syndromes, not intractable, without status epilepticus; Z66 Do not resuscitate; R79.89 Other specified abnormal findings of blood chemistry; G47.33 Obstructive sleep apnea (adult) (pediatric); K21.9 Gastro-esophageal reflux disease without esophagitis; J44.9 Chronic obstructive pulmonary disease, unspecified; D53.8 Other specified nutritional anemias; E03.9 Hypothyroidism, unspecified; Z88.8 Allergy status to other drugs, medicaments and biological substances; Z90.710 Acquired absence of both cervix and uterus; Z90.13 Acquired absence of bilateral breasts and nipples
CPT/HCPCS: 36415; 70450; 70553; 71260; 74177; 77014; 77290; 77334; 80053; 81003; 81015; 82248; 82553; 82565; 83615; 84100; 84146; 84443; 84484; 84550; 85025; 93005; 93010; 93306; 96374; J1100; J1650; J1953; J3420; Q9967

== ENCOUNTER 2019-05-07 14:45 | Emergency (ER) | payer MEDICARE, BC ==
--- NOTE | 2019-05-07 15:13 | RAD ---
XR Chest 1 View Portable History: Cough Comparison: Radiograph August 2018 Findings: Likely right hilar calcified lymph nodes. Port catheter tip at the inferior SVC. No conflue nt airspace consolidation, pneumothorax, or effusion. Prominent right suprahilar mass. Impression: No acute intrathoracic abnormality.
[2019-05-07 15:20] LABS: #Basophils 0.1 thou/uL (0.0-0.2); #Lymphocytes 0.2 thou/uL (1.20-3.40); #Monocytes 0.1 thou/uL (0.11-0.59); #Neutrophils 3.3 thou/uL (1.40-6.50); %Basophils 1.4 % (0.0-1.0); %Eosinophils 0.2 % (0.0-10.0); %Lymphocytes 5.8 % (21.0-51.0); %Monocytes 2.9 % (0.0-10.0); %Neutrophils 89.8 % (42.0-75.0); Hemoglobin 12.6 g/dL (12.0-16.0); Mean Corpuscular HGB CONC 31.3 g/dL (32.0-36.0); Mean Corpuscular Volume 89.7 fL (78.0-98.0); Mean Platelet Volume 6.6 fL (7.4-10.4); Platelet Count 211 thou/uL (130-400); RBC Distribution Width 13.8 % (11.5-14.5); Red Blood Cell (RBC) Count 4.51 mill/uL (4.20-5.40); White Blood Cell (WBC) Count 3.7 thou/uL (4.8-10.8)
[2019-05-07 15:37] LABS: ALT (SGPT) 14 U/L (8-55); AST (SGOT) 13 U/L (5-34); Albumin 3.7 g/dL (3.4-4.8); Alkaline Phosphatase 79 U/L (40-110); Anion Gap 15 mmol/L (10-20); BUN (Urea Nitrogen) 11 mg/dL (9.8-20.1); Bilirubin, Total 0.4 mg/dL (0.2-1.2); Calc. Creatinine Clearance 0 mL/min (70-130); Calcium 8.9 mg/dL (7.8-10.44); Carbon Dioxide 21 mmol/L (23-31); Chloride 98 mmol/L (98-107); Estimated GFR-MDRD 73; Globulin 3.2 g/dL (2.4-3.5); Glucose 251 mg/dL (80-115); Potassium 4.3 mmol/L (3.5-5.1); Protein, Total 6.9 g/dL (6.0-8.3); Sodium 130 mmol/L (136-145)
[2019-05-07 16:54] LABS: Bacteria/HPF 3+ HPF (None Seen); Bilirubin Negative (Negative); Blood, Urine Negative (Negative); Clarity Clear (Clear); Glucose, Urine (Dipstick) 500 mg/dL (Negative); Leukocyte Negative Leu/uL (Negative); Nitrite 2+ (Negative); Protein, Urine (Dipstick) Negative (Neg-Trace); RBC/HPF 0-3 HPF (0-3); Squamous Epithelial 0-3 HPF (0-3); Urobilinogen Normal mg/dL (Less than 2); WBC/HPF 0-3 HPF (0-3)
[2019-05-07] MEDS ORDERED: cefTRIAXone\\ROCEPHIN 1 GM VIAL ONE (17:20)
[2019-05-07] MEDS ORDERED: Acetaminophen 500 MG TAB ONE (17:20)
[2019-05-07] MEDS ORDERED: Nitrofurantoin Macrocrystal 50 MG CAP PO SCH (17:45)
== END 2019-05-07 18:42 | disposition home or self-care (01) ==
LOC: ERS 14:45
DX: N39.0 Urinary tract infection, site not specified (principal); D64.9 Anemia, unspecified; F41.9 Anxiety disorder, unspecified; F32.9 Major depressive disorder, single episode, unspecified; Z87.891 Personal history of nicotine dependence; Z79.82 Long term (current) use of aspirin; Z79.899 Other long term (current) drug therapy
CPT/HCPCS: 36415; 71045; 80053; 81003; 81015; 85025; 87040; 87804; 96361; 96365; J0696

== ENCOUNTER 2019-05-17 10:42 | Outpatient (CLI) | payer MEDICARE, BC ==
--- NOTE | 2019-05-17 12:01 | CT ---
CT CHEST WITH CONTRAST CLINICAL INDICATION: Small cell lung cancer. Evaluate for progression in disease. Patient has had chemotherapy and radiati on therapy. Patient complains of shortness of breath. COMPARISON: 04/11/2019. FINDINGS: Aorta: Vascular calcifications and mild atherosclerotic plaque is seen in the thoracic aorta with vas cular calcifications also seen involving the coronary arteries. Lungs: Again noted is the right upper lobe/right hilar mass with associated calcifications again jovani uring 2.6 cm x 2.6 cm and unchanged in size or appearance. There is severe tapering and suggestion of occlusion of the right upper lobe bronchus. However, there is no collapse of the right upper lobe. There are increased interstitial and mild patchy densities in the right upper lobe which could be related to postobstructive pneumonitis. There is severe tapering of the right upper lobe pulmonary ar nash due to the mass. There is increased interstitial thickening and parenchymal densities in the right lower lobe and to a lesser extent right middle lobe which were not present on the prior exam. Findings could be related to infectious process. Lymphangitic spread of tumor is thought less likely. There is bibasilar atelectasis. No discrete pulmonary nodule or new mass is seen. Mediastinum: No enlarged lymph nodes are seen. Thyroid gland: Grossly normal in appearance where visualized. Osseous structures: Degenerative changes are seen in the thoracic spine. No suspicious lytic or scler otic osseous lesions are identified. Chest wall: Bilateral breast prostheses are again seen. A right subclavian Mediport catheter is again noted in place terminating in the SVC. Upper abdomen: There is a small hiatal hernia. Calcified granuloma is present in the spleen. The karis liudmila the visualized upper abdomen demonstrates a normal CT appearance. IMPRESSION: 1. Stable size of right upper lobe/right hilar mass with associated calcifications. This mass does re sult in tapering of the right upper lobe bronchus with severe narrowing. There is no collapse of the right upper lobe. 2. Interstitial thickening and patchy parenchymal densities in the right lower lobe and to a lesser e xtent in the right middle lobe and right upper lobe. Findings could be related to infectious process. Lymphangitic spread of tumor is thought less likely. 3. No evidence of lymphadenopathy, and no new pulmonary nodule or mass is seen in the lungs bilateral ly. 4. Additional findings as described above.
[2019-05-17] MEDS ORDERED: Iopamidol-370 76% 500 ML 1 ML ONE (15:47)
== END 2019-05-17 10:43 | disposition home or self-care (01) ==
LOC: BICCT 10:42
PROVIDERS: ATTEND Internal Medicine Hematology & Oncology
DX: C34.01 Malignant neoplasm of right main bronchus (principal); J98.4 Other disorders of lung; R91.8 Other nonspecific abnormal finding of lung field; K44.9 Diaphragmatic hernia without obstruction or gangrene; D73.89 Other diseases of spleen; M47.814 Spondylosis without myelopathy or radiculopathy, thoracic region; J98.11 Atelectasis; I25.10 Atherosclerotic heart disease of native coronary artery without angina pectoris; I70.0 Atherosclerosis of aorta; Z95.828 Presence of other vascular implants and grafts; Z98.82 Breast implant status
CPT/HCPCS: 71260; Q9967

== ENCOUNTER 2019-06-08 10:18 | Outpatient (CLI) | payer MEDICARE, BC ==
--- NOTE | 2019-06-08 11:48 | MRI ---
BRAIN MRI WITH AND WITHOUT CONTRAST: HISTORY: Metastatic small lung cell cancer. Followup exam. Status post radiation treatment. Ten rounds, one mo nth ago. COMPARISON: 04/11/2019. FINDINGS: Gradient echo sequence: No hemorrhage. Calvarium: Diffuse T1 marrow signal hypointensity, nonspecific. Midline brain parenchyma: Unremarkable. Cerebrum:Redemonstration of an enhancing mass centered in the right cerebellar hemisphere. Currently, this mass measures 1.2 x 1.6 cm, previously measuring 2.2 x 1.5 cm. There is persistent but decreased vasogenic edema and effacement of the cerebellar folia. There are no new enhancing lesions in the posterior fossa. Redemonstration of an enhancing focus centered in the left parietal lobe, currently measuring 1.2 x 0.9 cm, previously measuring 1.5 x 1.3 cm. The degree of associated vasogen ic edema has decreased. There are no new enhancing lesions in the cerebrum. Ventricles: No evidence of hydrocephalus. Sinuses and mastoid air cells: Adequate aeration. Diffusion: Central arterial flow is maintained. Absent restricted diffusion. Postcontrast images:Two separate enhancing lesion in the cerebrum and cerebellum as described above. No new enhancing masses. IMPRESSION: 1. Redemonstration of 2 intraaxial masses compatible with metastases. Both lesions have decreased in size. 2. No new intraaxial metastatic lesions. Transcribed Date/Time: 06/08/2019 12:02 PM
[2019-06-08] MEDS ORDERED: Magnevist 469MG/ML 20 ML VIAL ONE (16:42)
== END 2019-06-08 10:19 | disposition home or self-care (01) ==
LOC: MRI 10:18
PROVIDERS: ATTEND Radiology Radiation Oncology
DX: C34.90 Malignant neoplasm of unspecified part of unspecified bronchus or lung (principal); C79.31 Secondary malignant neoplasm of brain
CPT/HCPCS: 70553; A9579

== ENCOUNTER 2019-06-30 10:13 | Inpatient (IN) | payer MEDICARE, BC ==
[2019-06-30] MEDS ORDERED: Fosphenytoin Sodium 1,500 MG in Sodium Chloride 0.9% 50 ML IVPB SCH (11:15)
[2019-06-30 11:17] LABS: #Lymphocytes 0.7 thou/uL (1.20-3.40); #Monocytes 0.8 thou/uL (0.11-0.59); #Neutrophils 5.2 thou/uL (1.40-6.50); %Basophils 0.7 % (0.0-1.0); %Eosinophils 0.4 % (0.0-10.0); %Lymphocytes 9.9 % (21.0-51.0); %Monocytes 11.6 % (0.0-10.0); %Neutrophils 77.4 % (42.0-75.0); Hemoglobin 12.6 g/dL (12.0-16.0); Mean Corpuscular HGB CONC 32.9 g/dL (32.0-36.0); Mean Corpuscular Volume 91.1 fL (78.0-98.0); Mean Platelet Volume 6.8 fL (7.4-10.4); Platelet Count 345 thou/uL (130-400); RBC Distribution Width 13.9 % (11.5-14.5); Red Blood Cell (RBC) Count 4.21 mill/uL (4.20-5.40); White Blood Cell (WBC) Count 6.7 thou/uL (4.8-10.8)
[2019-06-30 11:23] LABS: INR-International Normal Ratio 0.9; Prothrombin Time 12.2 SEC (12.0-14.7)
[2019-06-30 11:35] LABS: Bacteria/HPF 3+ HPF (None Seen); Bilirubin Negative (Negative); Blood, Urine Negative (Negative); Clarity Turbid (Clear); Glucose, Urine (Dipstick) Normal (Negative); Leukocyte 500 Leu/uL (Negative); Nitrite Negative (Negative); Protein, Urine (Dipstick) 10 mg/dL (Neg-Trace); RBC/HPF 0-3 HPF (0-3); WBC/HPF Greater than 50 HPF (0-3)
[2019-06-30 11:41] LABS: ALT (SGPT) 109 U/L (8-55); AST (SGOT) 103 U/L (5-34); Albumin 4.1 g/dL (3.4-4.8); Alkaline Phosphatase 435 U/L (40-110); Anion Gap 12 mmol/L (10-20); BUN (Urea Nitrogen) 6 mg/dL (9.8-20.1); Bilirubin, Total 1.1 mg/dL (0.2-1.2); Calc. Creatinine Clearance 0 mL/min (70-130); Calcium 9.9 mg/dL (7.8-10.44); Carbon Dioxide 25 mmol/L (23-31); Chloride 100 mmol/L (98-107); Estimated GFR-MDRD 90; Globulin 3.4 g/dL (2.4-3.5); Glucose 121 mg/dL (80-115); Magnesium 1.5 mg/dL (1.6-2.6); Protein, Total 7.5 g/dL (6.0-8.3); Sodium 133 mmol/L (136-145)
--- NOTE | 2019-06-30 12:33 | CT ---
CT BRAIN NONCONTRAST: DATE: 06/30/2019 10:57 AM HISTORY: 68-year-old female status post seizure COMPARISON: 04/12/2019 FINDINGS: The vasogenic edema surrounding the right cerebellar mass has increased in mild or moderate degree. The vasogenic edema around the left upper parietal mass has dramatically increased. No midline shift or obstructive hydrocephalus. No acute intra-axial or extra-axial hemorrhage, or any extra-axial fluid collection. No calvarial fracture. IMPRESSION: Interval increase in the degree of vasogenic edema surrounding the 2 metastatic brain masses, one in the right cerebellum, and especially the one in the left parietal cerebrum
[2019-06-30] MEDS ORDERED: Dexamethasone 4 mg/ml Vial ONE (12:44)
--- NOTE | 2019-06-30 16:08 | PDOC.FPRHP ---
- History of Present Illness Chief Complaint: seizure History of Present Illness: Patient is a 68F with PMHx of metastatic small cell lung cancer s/p chemo and radiation, anemia, COPD, hypothyroidism, dysthymia that presented to the ED after seizure-like activity. Patient is accompanied to the ED by her cousing and Zaida Ray. She states that earlier this morning the patient was reaching for her oatmeal and was not reaching in the appropriate direction. She then said she didn't feel well and went to lay down on the couch, where Flor reports that she had 10 episodes of 10 -15 seconds where the patients arms and legs would elevate and they would start shaking. The episodes were by 2-3sec breaks. The patient did not lose consciousness and was able to maintain eye contact throughout the episodes. She did not have incontinence or bite her tongue, and is able to remember segments of what happened. She denies any recent changes to her speech, strength, sensation, balance, vision. She does report tingling in her fingers that started during her chemotherapy treatments and chronic vision changes the last [address] Chahal recommends she follow up after treatment is complete. She endorses a slight non-productive cough that started 2 days ago. Denies SOB, cp. Endorses nausea, denies vomiting or diarrhea. Flor reports she had a temperature of 99.7F last Wednesday, but that is the highest temperature they have noticed. Endorses poor appetite, feeling cold often, and constipation. She has a hx of metatatic small cell lung cancer that was diagnosed in August 2018. Per Flor, she has gone through 33 lung radiation treatments, 10 brain radiation treatments, as well as 6 rounds of chemotherapy. She has had 2 courses of keytruda, her next is scheduled WednesdayJuly 02. Her last grand mal seizure was in March 2019, and at that time she lost consciousness. She was started on BID keppra at that time, and has been consistently taking her medications. NIH score 1 in ED. ED Course: EMS: 2mg ativan, 8mg zofran ED: 1500mg phosphenytoin, 10mg IV decadron, 1mg ativan, 1L NS - Allergies/Adverse Reactions Allergies Allergy/AdvReac Type Severity Reaction Status Date / Time ciprofloxacin [From Cipro] Allergy Severe Anxiety Verified 06/30/19 18:39 gluten Allergy Severe Hives Verified 06/30/19 18:39 - Home Medications Medication Instructions Recorded Confirmed Type Albuterol Sulfate [Ventolin Hfa] 2 puff INH Q4H PRN #1 hfa.aer.[email or web address] 08/28/1806/29 Rx Benzonatate [Tessalon] 100 mg PO TIDPRN PRN #90 cap 08/28/18 06/30/19 Rx Citalopram [CeleXA] 10 mg PO HS #30 tab 08/28/18 06/30/19 Rx Cyanocobalamin 1000 MCG/ML VIA 1,000 mcg IM Q28D #3 vial 08/28/18 06/30/19 Rx [Vitamin B-12] Mometasone/Formoterol 200/5 2 puff INH BID-RT #1 aer 08/28/18 06/30/19 Rx [Dulera 200 Mcg/5 Mcg Inhaler] Polyethylene Glycol 3350 [Miralax] 17 gm PO DAILYPRN PRN pk 08/28/18 06/30/19 Rx Ondansetron HCl [Zofran] 8 mg PO Q8HR PRN 04/12/19 06/30/19 History Prochlorperazine Maleate 10 mg PO Q8HR PRN 04/12/19 06/30/19 History [Compazine] Aspirin [Ecotrin Low Strength] 81 mg PO DAILY 30 Days #30 tab 04/14/19 06/30/19 Rx Atorvastatin Calcium [Lipitor] 40 mg PO HS 30 Days #30 tab 04/14/19 06/30/19 Rx Pantoprazole [Protonix] 40 mg PO DAILY 30 Days #30 tab 04/14/19 06/30/19 Rx levETIRAcetam [Keppra] 500 mg PO BID 30 Days #60 tab 04/14/19 06/30/19 Rx Levothyroxine Sodium [Synthroid] 50 mcg PO DAILY 06/30/19 06/30/19 History Memantine HCl [Namenda] 10 mg PO BID 06/30/19 06/30/19 History - History PMHx: metastatic small cell lung cancer s/p chemo and radiation, anemia, COPD, hypothyroidism, dysthymia PSHx: bilateral prophylactic mastectomy with breast implants, appendectomy, total hysterectomy, tonsillectomy FHx: mother-ovarian cancer, paternal aunt-breast cancer Social: 15pack year smoking hx, quit 1 year ago, denies etoh or drug use - Review of Systems General: reports: weight/appetite/sleep changes (decreased appetite). denies: fever/chills Eyes: reports: vision changes (chronic over last 3 months). denies: eye pain ENT: denies: nasal congestion, rhinorrhea Respiratory: reports: cough (non-productive). denies: shortness of breath Cardiovascular: denies: chest pain, edema Gastrointestinal: reports: nausea, constipation. denies: vomiting, diarrhea Genitourinary: denies: incontinence, polyuria Skin: denies: rashes, lesions Musculoskeletal: denies: stiffness, swelling Neurological: reports: seizure. denies: syncope Psychological: reports: depression - Vital signs BP: [118/74] HR: [78] RR: [17] Tmax: [98.1F] Pox: [96]% on [RA] Wt: [69.4kg] - Physical Exam Constitutional: NAD, awake, alert and oriented, well developed HEENT: normocephalic and atraumatic, MMM, other (horizontal nystagmus bilaterally) Neck: supple, FROM Chest: no lesions Heart: RRR, normal S1/S2, pulses present Lungs: CTAB, no respiratory distress Abdomen: soft, non-tender Musculoskeletal: normal structure, normal tone, ROM grossly normal Neurological: no focal deficit, normal sensation Skin: no rash/lesions, good turgor Heme/Lymphatic: no unusual bruising or bleeding, no purpura Psychiatric: normal mood and affect, good judgment and insight FMR H&P: Results - Labs Result Diagrams: 06/30/19 11:06 06/30/19 11:06 Lab results: WBC 6.7 thou/uL (4.8-10.8) 06/30/19 11:06 Hgb 12.6 g/dL (12.0-16.0) 06/30/19 11:06 Hct 38.3 % (36.0-47.0) 06/30/19 11:06 MCV 91.1 fL (78.0-98.0) 06/30/19 11:06 Plt Count 345 thou/uL (130-400) 06/30/19 11:06 Neutrophils % 77.4 % (42.0-75.0) H 06/30/19 11:06 Sodium 133 mmol/L (136-145) L 06/30/19 11:06 Potassium 4.0 mmol/L (3.5-5.1) 06/30/19 11:06 Chloride 100 mmol/L (98-107) 06/30/19 11:06 Carbon Dioxide 25 mmol/L (23-31) 06/30/19 11:06 BUN 6 mg/dL (9.8-20.1) L 06/30/19 11:06 Creatinine 0.65 mg/dL (0.6-1.1) 06/30/19 11:06 Glucose 121 mg/dL (80-115) H 06/30/19 11:06 Calcium 9.9 mg/dL (7.8-10.44) 06/30/19 11:06 Total Bilirubin 1.1 mg/dL (0.2-1.2) 06/30/19 11:06 AST 103 U/L (5-34) H 06/30/19 11:06 ALT 109 U/L (8-55) H 06/30/19 11:06 Alkaline Phosphatase 435 U/L (40-110) H 06/30/19 11:06 Ammonia 23 umol/L (18-72) 06/30/19 11:06 Serum Total Protein 7.5 g/dL (6.0-8.3) 06/30/19 11:06 Albumin 4.1 g/dL (3.4-4.8) 06/30/19 11:06 Urine Ketones Negative mg/dL (Negative) 06/30/19 11:00 Urine Blood Negative (Negative) 06/30/19 11:00 Urine Nitrite Negative (Negative) 06/30/19 11:00 Ur Leukocyte Esterase 500 Jose/uL (Negative) A 06/30/19 11:00 Urine RBC 0-3 HPF (0-3) 06/30/19 11:00 Urine WBC Greater than 50 HPF (0-3) A 06/30/19 11:00 Ur Squamous Epith Cells 11-20 HPF (0-3) A 06/30/19 11:00 Urine Bacteria 3+ HPF (None Seen) A 06/30/19 11:00 - Radiology Interpretation CT scan - chest Status: report reviewed by me (increased vasogenic edema surrounding 2 metastatic brain masses, one in R cerebellum, one in L parietal cerebrum) FMR H&P: A/P - Problem List (1) Vasogenic brain edema Current Visit: Yes Status: Acute Code(s): G93.6 - CEREBRAL EDEMA (2) Tonic clonic seizures Current Visit: No Status: Acute Code(s): G40.409 - OTH GENERALIZED EPILEPSY , NOT INTRACTABLE, W/O STAT EPI (3) Brain metastasis Current Visit: No Status: Chronic Code(s): C79.31 - SECONDARY MALIGNANT NEOPLASM OF BRAIN (4) COPD (chronic obstructive pulmonary disease) Current Visit: Yes Status: Chronic (5) Dysthymia Current Visit: Yes Status: Chronic Code(s): F34.1 - DYSTHYMIC DISORDER (6) Anemia Current Visit: No Status: Chronic Code(s): D64.9 - ANEMIA, UNSPECIFIED (7) Hypothyroidism Current Visit: No Status: Chronic Code(s): E03.9 - HYPOTHYROIDISM, UNSPECIFIED (8) JOSEPH (obstructive sleep apnea) Current Visit: No Status: Chronic Code(s): G47.33 - OBSTRUCTIVE SLEEP APNEA (ADULT) (PEDIATRIC) - Plan Patient is a 68F with PMHx of metastatic small cell lung cancer s/p chemo and radiation, anemia, COPD, hypothyroidism, dysthymia admitted for tonic clonic seizure-like activity and brain edema #Tonic-clonic seizure-like activity #Vasogenic Brain Edema #Hx of Brain Mets -CT brain: increased vasogenic edema surrounding 2 metastatic brain masses, one in R cerebellum, one in L parietal cerebrum -witnessed tonic-clonic like activity this morning; patient did not lose consciousness, no incontinence, remembers parts of the episodes -takes 500mg keppra BID, will increase to 1000mg BID today -received 1500mg phenytoin in ED, though seizure-like activity likely due to edema; will discontinue at this time and continue increased dose of keppra and steroids -received 10mg IV decadron, will continue 4mg QID -Dr. Lamb, oncology, consulted, appreciate recs -Neurology consulted, appreciate recs #Hypothyroidism -TSH 5.39, slightly elevated -free T3 and T4 pending -continue home meds #COPD -not in acute exacerbation, lungs sound clear on exam and not requiring oxygen -continue home meds #Anemia -Likely due to hx of chemotherapy -will continue to monitor #Dysthymia -patient in positive mood today -continue home meds and continue to monitor Diet: HH DVTppx: lovenox Dispo: inpatient for vasogenic brain edema surrounding brain mets; continue IV steroids, increase keppra dosing; onc and neuro consulted, appreciate recs Code: DNR PCP: [facility] H&P: Upper Level - Plan Date/Time: 06/30/19 0106 I, Wong Acevedo DO, have evaluated this patient and agree with findings/ plan as outlined by internet sales director resident. Pertinent changes/additions are listed here. I was present for the entire history and physical exam and agree with assessment and plan as documented above. Briefly, 68 yo F with metastatic small cell carcinoma with brain mets presents for focal seizure. Pt noted to have worsening vasogenic edema on ct of both brain lesions but worse near parietal lesion. She will be placed IP neuro for monitoring and titration of her keppra with continued decadron for improvement of vasogenic edema. Consult onc and marcella, appreciate recs. Addendum - Attending - Attending Attestation Date/Time: 06/30/19 7476 I personally evaluated the patient and discussed the management with Dr. García/ Curtis. I agree with the History, Examination, Assessment and Plan documented above with any addition or exceptions noted below. Patient is a 68-year-old female with history of lung cancer with metastatic lesions to the brain times two. Patient had a generalized tonic clonic seizure in March and was placed on Keppra at that time. She presents today with symptoms concerning for focal seizure. She is currently back to baseline. CT scan performed in the ED showed worsening vasogenic edema around her parietal lesion. Patient will be admitted for progression of metastatic lesions in the brain and refractory seizures. We will increase her Keppra dose and place the patient on dexamethasone. Neurology and oncology consultations will be placed. Continue other home medications. Further management pending clinical course.
[2019-06-30] MEDS ORDERED: PROVENTIL INHALER 6.7 G (200 INHALATIONS) INH PRN (17:23)
[2019-06-30] MEDS ORDERED: Benzonatate 100 MG CAP PO PRN (17:23)
[2019-06-30] MEDS ORDERED: Ondansetron PF 4 MG/2 ML Vial IVP PRN (17:23)
[2019-06-30] MEDS ORDERED: Ondansetron ODT 4 MG TAB PO PRN (17:23)
[2019-06-30] MEDS ORDERED: Calcium Carbonate 500 MG ChewTAB PO PRN (17:23)
[2019-06-30] MEDS ORDERED: Polyethylene Glycol 3350 17 GM Packet PO PRN (17:23)
[2019-06-30] MEDS ORDERED: Bisacodyl 5 MG TAB PO PRN (17:23)
[2019-06-30] MEDS ORDERED: Acetaminophen 500 MG TAB PO PRN (17:23)
[2019-06-30] MEDS ORDERED: Prochlorperazine Maleate 5 MG TAB PO PRN (17:34)
[2019-06-30 18:14] LABS: Free T4 (Free Thyroxine) 1.12 ng/dL (0.70-1.48)
[2019-06-30 18:38] VITALS: BMI 25.2
[2019-06-30] MEDS: Mometasone/Formoterol 120 PUFF INHALER INH SCH (19:24)
[2019-06-30] MEDS: levETIRAcetam 500 MG TAB PO SCH (21:34)
[2019-06-30] MEDS: Atorvastatin Calcium 40 MG TAB PO SCH (21:34)
[2019-06-30] MEDS: Citalopram 10 MG TAB PO SCH (21:34)
[2019-06-30] MEDS: Dexamethasone 4 MG in Sodium Chloride 0.9% 50 ML IVPB SCH (21:34)
--- NOTE | 2019-07-01 05:18 | PDOC.FM ---
- Subjective Subjective: Patient doing well this morning. No seizure activity last night. Concerned about deconditioning and patient still feels unsteady on her feet. Discussed that we will consult PT/OT today. - Objective Vital Signs & Weight: Vital Signs (12 hours) Temp Pulse Resp BP BP Pulse Ox 07/01/19 03:45 97.2 F L 72 18 111/63 97 06/30/19 23:12 98 F 71 16 102/63 97 06/30/19 19:15 97.7 F 93 16 111/68 94 L 06/30/19 18:08 98.1 F 84 18 119/77 100 Weight Weight 70.76 kg Result Diagrams: 07/01/19 05:12 07/01/19 05:12 EKG Reviewed by me: Yes (sinus 60s-70s) Phys Exam - Physical Examination Constitutional: NAD HEENT: moist MMs, sclera anicteric Neck: supple, full ROM Respiratory: no wheezing, clear to auscultation bilateral Cardiovascular: RRR, no significant murmur Gastrointestinal: soft, non-tender Musculoskeletal: no edema, pulses present Neurological: moves all 4 limbs left-beating nystagmus Psychiatric: normal affect, A&O x 3 Skin: no rash, normal turgor Dx/Plan (1) Vasogenic brain edema Code(s): G93.6 - CEREBRAL EDEMA Status: Acute (2) Tonic clonic seizures Code(s): G40.409 - OTH GENERALIZED EPILEPSY, NOT INTRACTABLE, W/O STAT EPI Status: Acute (3) Brain metastasis Code(s): C79.31 - SECONDARY MALIGNANT NEOPLASM OF BRAIN Status: Chronic (4) COPD (chronic obstructive pulmonary disease) Status: Chronic (5) Dysthymia Code(s): F34.1 - DYSTHYMIC DISORDER Status: Chronic (6) Anemia Code(s): D64.9 - ANEMIA, UNSPECIFIED Status: Chronic (7) Hypothyroidism Code(s): E03.9 - HYPOTHYROIDISM, UNSPECIFIED Status: Chronic (8) JOSEPH (obstructive sleep apnea) Code(s): G47.33 - OBSTRUCTIVE SLEEP APNEA (ADULT) (PEDIATRIC) Status: Chronic (9) Transaminitis Code(s): R74.0 - NONSPEC ELEV OF LEVELS OF TRANSAMNS & LACTIC ACID DEHYDRGNSE Status: Acute - Plan Plan: Patient is a 68F with PMHx of metastatic small cell lung cancer s/p chemo and radiation, anemia, COPD, hypothyroidism, dysthymia admitted for tonic clonic seizure-like activity and brain edema #Tonic-clonic seizure-like activity #Vasogenic Brain Edema #Hx of Brain Mets -CT brain: increased vasogenic edema surrounding 2 metastatic brain masses, one in R cerebellum, one in L parietal cerebrum -witnessed tonic-clonic like activity day of admission; patient did not lose consciousness, no incontinence, remembers parts of the episodes -no seizure-like activity overnight -takes 500mg keppra BID, increased to 1000mg BID evening 06/29 -keppra level 9.2 -received 1500mg phenytoin in ED, though seizure-like activity likely due to edema; discontinued; continue increased dose of keppra and steroids -received 10mg IV decadron, started on 4mg QID, continue -Dr. Lamb, oncology, consulted, appreciate recs -Neurology consulted, appreciate recs #Transaminitis -AST/ALT 103/109>69/96 -likely due to Keytruda #Hypothyroidism -TSH 5.39, slightly elevated -free T3 2.56, wnl -free T4 1.12, wnl -continue home meds #COPD -not in acute exacerbation, lungs sound clear on exam and not requiring oxygen -continue home meds #Anemia -Likely due to hx of chemotherapy -will continue to monitor #Dysthymia -patient in positive mood -continue home meds and continue to monitor Diet: DVTppx: lovenox Dispo: inpatient for vasogenic brain edema surrounding brain mets; continue IV steroids, increase keppra dosing; onc and neuro consulted, appreciate recs Code: DNR PCP: [facility] Addendum - Attending - Attending Attestation Date/Time: 07/01/19 7074 I personally evaluated the patient and discussed the management with Dr. García. I agree with the History, Examination, Assessment and Plan documented above with any addition or exceptions noted below. Patient improved this morning. Continue dexamethasone and increased Keppra. PT/ OT consults. Further mgmt pending clinical course but overall stable.
[2019-07-01] MEDS: Levothyroxine Sodium 75 MCG TAB PO SCH (05:34)
[2019-07-01 05:38] LABS: #Lymphocytes 0.7 thou/uL (1.20-3.40); #Monocytes 0.4 thou/uL (0.11-0.59); #Neutrophils 3.9 thou/uL (1.40-6.50); %Basophils 0.2 % (0.0-1.0); %Eosinophils 0.2 % (0.0-10.0); %Lymphocytes 14.3 % (21.0-51.0); %Monocytes 8.6 % (0.0-10.0); %Neutrophils 76.7 % (42.0-75.0); Hemoglobin 12.6 g/dL (12.0-16.0); Mean Corpuscular HGB CONC 33.4 g/dL (32.0-36.0); Mean Corpuscular Hemoglobin 30.4 pg (27.0-31.0); Mean Corpuscular Volume 91.2 fL (78.0-98.0); Platelet Count 344 thou/uL (130-400); RBC Distribution Width 13.7 % (11.5-14.5); Red Blood Cell (RBC) Count 4.16 mill/uL (4.20-5.40); White Blood Cell (WBC) Count 5.1 thou/uL (4.8-10.8)
[2019-07-01 06:05] LABS: ALT (SGPT) 96 U/L (8-55); AST (SGOT) 69 U/L (5-34); Albumin 3.9 g/dL (3.4-4.8); Alkaline Phosphatase 394 U/L (40-110); Anion Gap 11 mmol/L (10-20); BUN (Urea Nitrogen) 7 mg/dL (9.8-20.1); Bilirubin, Total 0.7 mg/dL (0.2-1.2); Calc. Creatinine Clearance 93 mL/min (70-130); Calcium 9.7 mg/dL (7.8-10.44); Carbon Dioxide 27 mmol/L (23-31); Chloride 100 mmol/L (98-107); Estimated GFR-MDRD Greater than 90; Globulin 3.2 g/dL (2.4-3.5); Glucose 142 mg/dL (80-115); Potassium 4.1 mmol/L (3.5-5.1); Protein, Total 7.1 g/dL (6.0-8.3); Sodium 134 mmol/L (136-145)
[2019-07-01] MEDS: Mometasone/Formoterol 120 PUFF INHALER INH SCH ×2 (06:37→18:20)
--- NOTE | 2019-07-01 09:37 | PRG ---
DATE OF SERVICE: 07/01/2019 CONSULTING PHYSICIAN: Hospitalist Service. IMPRESSION: 1. Recurrent seizures. 2. Agree with increasing Keppra to 1000 mg twice a day. SUBJECTIVE: Ms. Burnett was readmitted due to several repetitive seizures at home. After the seizures were completed, she was too weak to walk. She reports that she did not lose consciousness with them. Since admission, her vital signs have been stable. She has been afebrile. She is without any significant shortness of breath or new complaints of lateralized weakness or numbness. Physical therapy will assess her today. Hopefully, her postictal weakness has resolved. I agree with your current treatment plan. Job ID: [id number]
[2019-07-01] MEDS ORDERED: Dexamethasone 4 MG TAB PO SCH (09:45)
[2019-07-01] MEDS: Dexamethasone 4 MG in Sodium Chloride 0.9% 50 ML IVPB SCH (09:52)
[2019-07-01] MEDS: Enoxaparin Sodium 40 MG/0.4 ML SYRINGE SC SCH (09:52)
[2019-07-01] MEDS: levETIRAcetam 500 MG TAB PO SCH ×2 (09:53→21:22)
[2019-07-01] MEDS: Aspirin 81 mg Enteric Coated Tablet PO SCH (09:53)
[2019-07-01] MEDS: Dexamethasone 4 MG TAB PO SCH ×3 (15:12→21:22)
[2019-07-01] MEDS: Atorvastatin Calcium 40 MG TAB PO SCH (21:22)
[2019-07-01] MEDS: Citalopram 10 MG TAB PO SCH (21:27)
--- NOTE | 2019-07-02 05:21 | PDOC.FM ---
- Subjective Subjective: Patient doing well this morning. Discussed plans to work with PT today. Discussed that patient does not want to go to rehab and would prefer to go home with HH and outpatient PT. Would like to know what supplies may help her at home. Discussed that Dr. Lamb stopped by yesterday, agreed with continued steroids. - Objective Vital Signs & Weight: Vital Signs (12 hours) Temp Pulse Resp BP Pulse Ox 07/02/19 03:42 97.5 F L 74 16 108/66 97 07/01/19 23:14 97.8 F 71 18 104/61 97 07/01/19 19:23 98.6 F 74 16 110/68 95 07/01/19 18:20 62 16 93 L Weight Admit Weight 70.76 kg Weight 70.76 kg I&O: 06/30/19 07/01/19 07/02/19 06:59 06:59 07:59 Output Total 300 Balance -300 Result Diagrams: 07/01/19 05:12 07/01/19 05:12 Phys Exam - Physical Examination Constitutional: NAD HEENT: moist MMs, sclera anicteric bilateraly beating nystagmus, L>R Neck: supple, full ROM Respiratory: no wheezing, clear to auscultation bilateral Cardiovascular: RRR, no significant murmur Gastrointestinal: soft, non-tender, positive bowel sounds Musculoskeletal: no edema, pulses present Neurological: non-focal, moves all 4 limbs Psychiatric: normal affect, A&O x 3 Skin: no rash, normal turgor Dx/Plan (1) Vasogenic brain edema Code(s): G93.6 - CEREBRAL EDEMA Status: Acute (2) Tonic clonic seizures Code(s): G40.409 - OTH GENERALIZED EPILEPSY, NOT INTRACTABLE, W/O STAT EPI Status: Acute (3) Brain metastasis Code(s): C79.31 - SECONDARY MALIGNANT NEOPLASM OF BRAIN Status: Chronic (4) COPD (chronic obstructive pulmonary disease) Status: Chronic (5) Dysthymia Code(s): F34.1 - DYSTHYMIC DISORDER Status: Chronic (6) Anemia Code(s): D64.9 - ANEMIA, UNSPECIFIED Status: Chronic (7) Hypothyroidism Code(s): E03.9 - HYPOTHYROIDISM, UNSPECIFIED Status: Chronic (8) JOSEPH (obstructive sleep apnea) Code(s): G47.33 - OBSTRUCTIVE SLEEP APNEA (ADULT) (PEDIATRIC) Status: Chronic (9) Transaminitis Code(s): R74.0 - NONSPEC ELEV OF LEVELS OF TRANSAMNS & LACTIC ACID DEHYDRGNSE Status: Acute - Plan Plan: Patient is a 68F with PMHx of metastatic small cell lung cancer s/p chemo and radiation, anemia, COPD, hypothyroidism, dysthymia admitted for tonic clonic seizure-like activity and brain edema #Tonic-clonic seizure-like activity #Vasogenic Brain Edema #Hx of Brain Mets -CT brain: increased vasogenic edema surrounding 2 metastatic brain masses, one in R cerebellum, one in L parietal cerebrum -witnessed tonic-clonic like activity day of admission; patient did not lose consciousness, no incontinence, remembers parts of the episodes -no seizure-like activity overnight -takes 500mg keppra BID, increased to 1000mg BID evening / -keppra level 9.2 -received 1500mg phenytoin in ED, though seizure-like activity likely due to edema; discontinued; continue increased dose of keppra and steroids -received 10mg IV decadron, continue 4mg po decadron QID -will need steroid continuation and taper upon discharge -Dr. Lamb, oncology, consulted, appreciate recs -Neurology consulted, Dr. Paul; agreeable with increased keppra dosing, no futher recs #Deconditioning -PT/OT consulted, appreciate recs #UTI -Urine Cx: E. Coli, steward-sensitive -Patient asymptomatic, but due to patient's immunocompromise will treat -will start rocephin today #Transaminitis -AST/ALT 103/109>69/96 -likely due to Keytruda #Hypothyroidism -TSH 5.39, slightly elevated -free T3 2.56, wnl -free T4 1.12, wnl -continue home meds #COPD -not in acute exacerbation, lungs sound clear on exam and not requiring oxygen -continue home meds #Anemia -Likely due to hx of chemotherapy -will continue to monitor #Dysthymia -patient in positive mood -continue home meds and continue to monitor Diet: DVTppx: lovenox Dispo: inpatient for vasogenic brain edema surrounding brain mets; continue IV steroids, continue increased keppra dosing; onc consulted, appreciate recs; PT/ OT consulted, appreciate recs Code: DNR PCP: [facility] Addendum - Attending - Attending Attestation Date/Time: 07/02/19 5377 I personally evaluated the patient and discussed the management with Dr. García. I agree with the History, Examination, Assessment and Plan documented above with any addition or exceptions noted below.
[2019-07-02] MEDS: cefTRIAXone\\ROCEPHIN 1 GM in Sodium Chloride 0.9% 100 ML IVPB SCH (05:39)
[2019-07-02] MEDS: Levothyroxine Sodium 75 MCG TAB PO SCH (05:39)
[2019-07-02] MEDS: Mometasone/Formoterol 120 PUFF INHALER INH SCH ×2 (06:52→18:44)
[2019-07-02] MEDS: Senokot S 8.6-50 MG TAB PO SCH ×2 (09:04→20:14)
[2019-07-02] MEDS: Aspirin 81 mg Enteric Coated Tablet PO SCH (09:04)
[2019-07-02] MEDS: Dexamethasone 4 MG TAB PO SCH ×4 (09:04→20:14)
[2019-07-02] MEDS: levETIRAcetam 500 MG TAB PO SCH ×2 (09:04→20:14)
[2019-07-02] MEDS: Polyethylene Glycol 3350 17 GM Packet PO SCH (09:04)
[2019-07-02] MEDS: Enoxaparin Sodium 40 MG/0.4 ML SYRINGE SC SCH (09:05)
[2019-07-02] MEDS: Atorvastatin Calcium 40 MG TAB PO SCH (20:14)
[2019-07-02] MEDS: Citalopram 10 MG TAB PO SCH (20:15)
[2019-07-03] MEDS: cefTRIAXone\\ROCEPHIN 1 GM in Sodium Chloride 0.9% 100 ML IVPB SCH (05:12)
[2019-07-03] MEDS: Levothyroxine Sodium 75 MCG TAB PO SCH (05:13)
--- NOTE | 2019-07-03 06:49 | PDOC.FM ---
- Subjective Subjective: Doing well this morning, no acute events overnight, no seizure-like activity since admit. Tolerating PO well. No n/v. No CP, SOB, fever/chills. Did not sleep well 2/2 increased steroid dose but otherwise no concerns, complaints, or questions for this morning. - Objective MAR Reviewed: Yes Vital Signs & Weight: Vital Signs (12 hours) Temp Pulse Resp BP Pulse Ox 07/03/19 03:09 97.4 F L 65 16 119/66 99 07/02/19 23:00 98.3 F 65 20 117/62 97 07/02/19 19:08 97.7 F 68 18 104/61 94 L Weight Admit Weight 70.76 kg Weight 70.76 kg I&O: 07/01/19 07/02/19 07/03/19 05:59 06:59 06:59 Intake Total 810 Output Total 650 Balance 160 Result Diagrams: 07/01/19 05:12 07/01/19 05:12 Phys Exam - Physical Examination Constitutional: NAD (resting comfortably, good spirits) HEENT: moist MMs Neck: no nodes Respiratory: no wheezing, no rales, no rhonchi, clear to auscultation bilateral Cardiovascular: RRR, no significant murmur, no rub Gastrointestinal: soft, non-tender, no distention, positive bowel sounds Musculoskeletal: no edema Neurological: non-focal, normal sensation, moves all 4 limbs Psychiatric: normal affect, A&O x 3 Dx/Plan (1) Seizure Code(s): R56.9 - UNSPECIFIED CONVULSIONS Status: Acute (2) Transaminitis Code(s): R74.0 - NONSPEC ELEV OF LEVELS OF TRANSAMNS & LACTIC ACID DEHYDRGNSE Status: Acute (3) Mass of upper lobe of right lung Code(s): R91.8 - OTHER NONSPECIFIC ABNORMAL FINDING OF LUNG FIELD Status: Acute (4) Brain metastasis Code(s): C79.31 - SECONDARY MALIGNANT NEOPLASM OF BRAIN Status: Chronic - Plan Plan: Patient is a 68F with PMHx of metastatic small cell lung cancer s/p chemo and radiation, anemia, COPD, hypothyroidism, dysthymia admitted for tonic clonic seizure-like activity and brain edema #Tonic-clonic seizure-like activity - Vasogenic Brain Edema with Hx of Brain Mets - CT brain: increased vasogenic edema surrounding 2 metastatic brain masses, one in R cerebellum, one in L parietal cerebrum - witnessed tonic-clonic like activity day of admission; patient did not lose consciousness, no incontinence, remembers parts of the episodes - no seizure-like activity since admit - takes 500mg keppra BID, increased to 1000mg BID evening / - received 1500mg phenytoin in ED, increased keppra dosing and dexamethasone - received 10mg IV decadron, continue 4mg po decadron QID. Will need steroid continuation and taper upon discharge - Dr. Lamb, oncology, consulted, appreciate recs. Known to Dr. Chahal. Will await recs this AM. - Neurology consulted, Dr. Paul; agreeable with increased keppra dosing, no futher recs #Deconditioning - PT/OT consulted, appreciate recs #UTI - Urine Cx: E. Coli, steward-sensitive - Patient asymptomatic, but due to patient's immunocompromise will treat - s/p 2 doses of rocephin, will give 1 more dose for full treatment #Transaminitis - AST/ALT 103/109>69/96 - likely due to Keytruda #Hypothyroidism -TSH 5.39, slightly elevated -free T3 2.56, wnl. free T4 1.12, wnl - continue home meds #COPD - not in acute exacerbation, lungs sound clear on exam and not requiring oxygen - continue home meds #Anemia - Likely due to hx of chemotherapy - will continue to monitor #Dysthymia - patient in positive mood - continue home meds and continue to monitor Diet: DVTppx: lovenox Dispo: inpatient for vasogenic brain edema surrounding brain mets; continue IV steroids, continue increased keppra dosing; onc consulted, appreciate recs; PT/ OT consulted, appreciate recs Code: DNR PCP: [facility] Addendum - Attending - Attending Attestation Date/Time: 07/03/19 0716 I personally evaluated the patient and discussed the management with Dr. Otto. I agree with the History, Examination, Assessment and Plan documented above with any addition or exceptions noted below. Patient doing well. Stable for discharge home on dexamethasone and increased Keppra.
[2019-07-03] MEDS: Mometasone/Formoterol 120 PUFF INHALER INH SCH (07:49)
[2019-07-03] MEDS: levETIRAcetam 500 MG TAB PO SCH (08:42)
[2019-07-03] MEDS: Aspirin 81 mg Enteric Coated Tablet PO SCH (08:42)
[2019-07-03] MEDS: Dexamethasone 4 MG TAB PO SCH ×2 (08:42→12:21)
[2019-07-03] MEDS: Enoxaparin Sodium 40 MG/0.4 ML SYRINGE SC SCH (08:43)
[2019-07-03] MEDS: Senokot S 8.6-50 MG TAB PO SCH (08:43)
[2019-07-03] MEDS: Polyethylene Glycol 3350 17 GM Packet PO SCH (08:43)
[2019-07-03] MEDS ORDERED: Gentamicin Sulfate 60 MG in Premix Bag 1 BAG IVPB SCH (09:30)
[2019-07-03 11:52] VITALS: BP 109/74
--- NOTE | 2019-07-03 12:03 | CON ---
DATE OF CONSULTATION: REASON FOR CONSULTATION: Small cell lung cancer. 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 The patient was diagnosed with small cell lung cancer in July 2018 and received chemotherapy and radiation for limited disease; however, then relapsed to brain mets and finished whole-brain radiation and was started on Keytruda on May 23, 2019. According to the patient, she was in her house and began having shaking episodes mostly in the upper body that would last 10 to 15 seconds and then cease for a few seconds and then repeat itself, and this happened approximately 10 times. She states she never lost consciousness and made verbal contact, but could not speak throughout the episodes to her medical lnviq-jr-euitwcrb, Flor, who was next to her. Flor called the 911, who brought her to the hospital. In the ER, she was found to be extremely weak and also have a UTI, which has been treated with 3 days of ceftriaxone. She has been started on dexamethasone 4 mg q.6 hours and her Keppra dose was increased. She was evaluated by Dr. Paul, who agreed with that plan. Currently, she feels much better and was able to stand yesterday and work with Physical Therapy, who has recommended home PT. She states that her shortness of breath has dramatically improved as has her oxygenation at home since starting Keytruda. She is scheduled to receive Keytruda tomorrow in clinic. REVIEW OF SYSTEMS: Ten-point review of systems negative except as per HPI. PAST MEDICAL HISTORY: Small cell lung cancer, anemia, COPD, hypothyroidism, tobacco abuse. PAST SURGICAL HISTORY: Bilateral mastectomies, appendectomy, total hysterectomy, and tonsillectomy. FAMILY HISTORY: Ovarian cancer in her mother. Breast cancer in her paternal aunt. SOCIAL HISTORY: Former smoker, quit a year ago at diagnosis of lung cancer. ALLERGIES: CIPROFLOXACIN AND GLUTEN. CURRENT MEDICATIONS: Reviewed. PHYSICAL EXAMINATION: VITAL SIGNS: Temperature 98.6, pulse 64, respirations 14, saturating 99% on room air, blood pressure 116/68. GENERAL APPEARANCE: The patient is lying in bed, in no acute distress. NECK: Supple. RESPIRATIONS: Clear to auscultation bilaterally without any wheezing, rales, or rhonchi. CARDIOVASCULAR: S1 and S2, regular rhythm and rate. No murmurs, rubs, or gallops. ABDOMEN: Soft, nontender. EXTREMITIES: The patient moves all extremities. NEUROLOGIC: Cranial nerves 2 through 12 are grossly intact and she moves all extremities. PSYCHIATRIC: Awake, alert, and oriented x3. LABORATORY DATA: White blood cells 5.1, hemoglobin 12.6, and platelets 344. Sodium 134, potassium 4.1, BUN 7, creatinine 0.63. AST 69, ALT 96, ALP 394. TSH 5.3995, free T4 is 1.12. Urine showed large leukocyte esterase and positive bacteria. IMAGING DATA: CT of the brain shows vasogenic edema surrounding the right cerebellar mass has increased [id number] and vasogenic edema around the left upper parietal mass has dramatically increased, but without any midline shift or obstructive hydrocephalus. ASSESSMENT AND PLAN: A 68-year-old female with small cell lung cancer with metastasis to brain, presenting to the hospital with seizure-like activity and profound weakness and urinary tract infection. The patient is stabilized on increased dose of Keppra and steroids, and her urinary tract infection has been treated. From Oncology standpoint, she is okay for discharge with outpatient followup and home PT. We will continue to follow her and taper down her steroid dose in the outpatient setting and if she is discharged today, she can come to the clinic tomorrow for her Keytruda. I discussed this with the patient and Flor at the bedside. Job ID: [id number]
[2019-07-03 12:08] VITALS: TEMP 98.4
--- NOTE | 2019-07-03 12:20 | PDOC.BPN ---
- Brief Progress Note Append to morning progress note: Review of PT/OT records indicate patient would benefit from rolling walker and bedside commode to increase home safety, decrease fall risk, and decrease caregiver dependence. Pt has chronic deconditioning and increased fall risk due to metastatic lung cancer, multiple hospitalizations, and recent admission for seizures secondary to brain mets. Patient would benefit from rolling walker and beside commode for home use to increase safety and help to prevent falls and recurrent hospitalizations 2/2 possible sequela. CM consulted for assistance and order placed.
--- NOTE | 2019-07-04 06:04 | DIS ---
DATE OF ADMISSION: 06/30/2019 DATE OF DISCHARGE: 07/03/2019 RESIDENT: Refugio Otto MD. DISCHARGE ATTENDING: Сергей Ha MD. CONSULTS: 1. Neurology, Dr. Paul. 2. Oncology, Dr. Chahal. PROCEDURES: Brain CT on 06/30/2019 demonstrating interval increase in the degree of vasogenic edema surrounding the two metastatic brain masses, one in the right cerebellum and especially the one in the left parietal cerebellum. PRIMARY DIAGNOSES: 1. Tonic-clonic seizures secondary to vasogenic edema surrounding brain metastases. 2. Metastatic small cell lung cancer. 3. Deconditioning secondary to the above. 4. Urinary tract infection, treated. SECONDARY DIAGNOSES: 1. Transaminitis secondary to chemotherapy. 2. Hypothyroidism. 3. Chronic obstructive pulmonary disease. 4. Anemia. 5. Dysthymia. DISCHARGE MEDICATIONS: 1. Tessalon Perles 100 mg p.o. t.i.d. p.r.n. 2. Dulera 200/5 two puffs b.i.d. 3. MiraLAX 17 g p.o. daily p.r.n. 4. Ventolin HFA 2 puffs inhalation q.4 hours p.r.n. 5. Celexa 10 mg p.o. at bedtime. 6. Cyanocobalamin 1000 mcg injected q.monthly. 7. Compazine 10 mg p.o. q.8 hours p.r.n. 8. Zofran 8 mg p.o. q.8 hours p.r.n. 9. Aspirin 81 mg p.o. daily. 10. Atorvastatin 40 mg p.o. at bedtime. 11. Protonix 40 mg p.o. daily. 12. Levothyroxine 50 mcg p.o. daily. 13. Namenda 10 mg p.o. b.i.d. 14. Dexamethasone 4 mg p.o. q.i.d. to titrate as directed by Oncology. 15. Keppra 1000 mg p.o. b.i.d. DISCONTINUED MEDICATIONS: Keppra 500 mg p.o. b.i.d. HISTORY OF PRESENT ILLNESS AND HOSPITAL COURSE: The patient is a very pleasant 68-year-old female, with history of metastatic lung cancer status post chemo and radiation, COPD, and brain metastases, who presented to the emergency department for seizure-like activity. The patient states that she was not feeling well on the morning of admission and went to lie down on the couch when her primary caregiver and cousin noticed that she had 10 episodes of 10-15 seconds when the patient's arms and legs would elevate and starts shaking. Episodes were by 2-3-second breaks. The patient did not lose consciousness and was able to maintain eye contact throughout the episodes. Did not have any incontinence or tongue biting and remember segments of what happened. She denied any recent changes to her speech, strength, sensation, balance, vision, but then endorsed mild neuropathy that has been present since her chemotherapy. The patient does have a known history of seizures. Last grand mal seizure was in March of 2019. At that time, she lost consciousness and was started on Keppra 500 mg b.i.d. and she has been taking her medications consistently without missing any doses. The patient has currently undergone 33 lung radiation treatments, 10 brain radiation treatments, and received chemotherapy and has had 2 courses of Keytruda with her next scheduled for tomorrow, 07/03. In the ED, she was given 2 mg of Ativan, 8 mg of Zofran, 1500 mg of fosphenytoin, 2 mg of IV Decadron, 1 mg Ativan, and 1 L of normal saline. The head CT showed increased vasogenic edema, likely contributing to her seizure. The patient was then admitted to the floor on neuro unit for further evaluation and management. The patient was placed on seizure precautions and had an increase of her Keppra dose to 1000 mg twice daily. The patient was monitored closely and had no recurrence of seizure-like activity. Neurology was consulted who agreed with increased dose of Keppra. Continued outpatient followup. The patient was continued on Decadron [address] Chahal, her oncologist, was consulted for further recommendations. Dr. Chahal came by and evaluated the patient and stated that he recommended continuing of the dexamethasone 4 mg p.o. q.i.d. and that this will be titrated as an outpatient. The patient was also noted to have significant deconditioning likely secondary to her metastatic lung cancer, recent admissions, and seizure-like activity. PT/OT were consulted to work with patient and recommended continued outpatient therapy as well as assistance with a home rolling walker and bedside commode. These were ordered and Case Management was consulted for assistance. The patient was also noted to have a urinary tract infection on admission that grew out E coli, pansensitive. The patient was asymptomatic; however, due to the patient's immunocompromised state, decided that this would be treated. The patient was given 2 doses of Rocephin and a final dose of gentamicin 1 mg/kg to complete her regimen prior to discharge. The patient was also noted to have a mild transaminitis with an ALT/AST of 109/103. This did downtrend to 96/69. It was likely due to her Keytruda and will need to be continue to monitor as an outpatient. The patient's home medications were continued. The patient did not appear to be in any acute COPD exacerbation and no changes to her home medications other than her Keppra was performed. At the time of discharge, the patient was at her baseline having no further seizure-like activity. The patient was eager for discharge home. The patient has an appointment tomorrow on 07/[address] Chahal for her next Keytruda treatment and it was recommended that the patient followup with this appointment. The patient also needs to follow up with her primary care physician within a week of discharge. All questions were answered appropriately. Discharge plan was discussed with the patient as well as the patient's MPOA, Flor, at bedside, who voiced agreement in understanding of the discharge plan. DISPOSITION: Stable. DISCHARGE INSTRUCTIONS: 1. Location: Home. 2. Diet: Heart healthy. 3. Activity: As tolerated. 4. Followup: The patient to followup with Dr. Chahal as previously scheduled tomorrow on 07/04/2019, as well as her primary care physician Dr. Monae within 1 week of discharge. Job ID: [id number]
== END 2019-07-03 13:18 | disposition home or self-care (01) | DRG 100 ==
LOC: ERS 10:13 → ERHOLD 14:33 → 2SE 18:06
PROVIDERS: ADMIT Student in an Organized Health Care Education/Training Program; ATTEND Student in an Organized Health Care Education/Training Program
DX: G40.409 Other generalized epilepsy and epileptic syndromes, not intractable, without status epilepticus (principal); G93.6 Cerebral edema; C79.31 Secondary malignant neoplasm of brain; C34.90 Malignant neoplasm of unspecified part of unspecified bronchus or lung; N39.0 Urinary tract infection, site not specified; J44.9 Chronic obstructive pulmonary disease, unspecified; F34.1 Dysthymic disorder; D64.9 Anemia, unspecified; E03.9 Hypothyroidism, unspecified; G47.33 Obstructive sleep apnea (adult) (pediatric); F32.9 Major depressive disorder, single episode, unspecified; Z66 Do not resuscitate; R74.0 Nonspecific elevation of levels of transaminase and lactic acid dehydrogenase [LDH]; T45.1X5A Adverse effect of antineoplastic and immunosuppressive drugs, initial encounter; B96.20 Unspecified Escherichia coli [E. coli] as the cause of diseases classified elsewhere; F41.9 Anxiety disorder, unspecified; R40.2412 Glasgow coma scale score 13-15, at arrival to emergency department; Z90.13 Acquired absence of bilateral breasts and nipples; Z90.49 Acquired absence of other specified parts of digestive tract; Z80.41 Family history of malignant neoplasm of ovary; Z80.3 Family history of malignant neoplasm of breast; Z90.710 Acquired absence of both cervix and uterus; Z87.891 Personal history of nicotine dependence; Z88.1 Allergy status to other antibiotic agents
CPT/HCPCS: 36415; 70450; 80053; 80177; 81003; 81015; 82140; 83735; 84439; 84443; 84481; 84484; 85025; 85610; 87077; 87086; 87186; 87804; J0696; J1100; J1580; J1650; J3490; J8540; Q2009

== ENCOUNTER 2019-07-04 09:04 | Inpatient (IN) | payer MEDICARE, BC ==
[2019-07-04 09:45] LABS: #Lymphocytes 0.6 thou/uL (1.20-3.40); #Monocytes 0.7 thou/uL (0.11-0.59); #Neutrophils 7.2 thou/uL (1.40-6.50); %Basophils 0.1 % (0.0-1.0); %Eosinophils 0.1 % (0.0-10.0); %Lymphocytes 7.1 % (21.0-51.0); %Monocytes 8.7 % (0.0-10.0); Hemoglobin 13.4 g/dL (12.0-16.0); Mean Corpuscular HGB CONC 33.3 g/dL (32.0-36.0); Mean Corpuscular Hemoglobin 30.4 pg (27.0-31.0); Mean Corpuscular Volume 91.1 fL (78.0-98.0); Platelet Count 337 thou/uL (130-400); RBC Distribution Width 13.9 % (11.5-14.5); White Blood Cell (WBC) Count 8.6 thou/uL (4.8-10.8)
[2019-07-04 10:07] LABS: ALT (SGPT) 70 U/L (8-55); AST (SGOT) 40 U/L (5-34); Albumin 4.1 g/dL (3.4-4.8); Alkaline Phosphatase 384 U/L (40-110); Anion Gap 16 mmol/L (10-20); BUN (Urea Nitrogen) 9 mg/dL (9.8-20.1); Bilirubin, Total 0.5 mg/dL (0.2-1.2); Calc. Creatinine Clearance 0 mL/min (70-130); Calcium 9.7 mg/dL (7.8-10.44); Carbon Dioxide 22 mmol/L (23-31); Chloride 96 mmol/L (98-107); Estimated GFR-MDRD Greater than 90; Globulin 3.6 g/dL (2.4-3.5); Glucose 174 mg/dL (80-115); Protein, Total 7.7 g/dL (6.0-8.3); Sodium 130 mmol/L (136-145)
--- NOTE | 2019-07-04 10:36 | CT ---
CT BRAIN WITHOUT CONTRAST: Date: 07/04/2019 HISTORY: Right-sided body weakness, right arm weakness. Metastatic lung cancer. COMPARISON: 06/30/2019. FINDINGS: Vasogenic edema in the region of the right cerebellar mass and the left upper parietal mass is again seen and stable. No evidence of acute infarct, hemorrhage, midline shift, or abnormal extra-axial flu id collections are seen. The bony calvarium is intact. IMPRESSION: Stable exam. No acute process. POS: TPC
--- NOTE | 2019-07-04 11:38 | MRI ---
BRAIN MRI WITH AND WITHOUT CONTRAST: HISTORY: Right-sided body weakness, arm weakness. Metastatic lung cancer. COMPARISON: 06/08/2019. FINDINGS: Gradient echo sequence: No hemorrhage. Calvarium: Appropriate T1 marrow signal intensity. Midline brain parenchyma: Unremarkable. Cerebrum:Redemonstration of T2 and FLAIR white matter hyperintensities compatible with chronic small vessel ischemic change. Redemonstration of vasogenic edema centered in the left parietal lobe as well as the right cerebellar hemisphere. The degree of vasogenic edema has increased in the left emily etal lobe and may have slightly decreased in the right cerebellar hemisphere. There is no midline shift. Basilar cisterns are patent. Ventricles: No evidence of hydrocephalus. Sinuses and mastoid air cells: Adequate aeration. Diffusion: Central arterial flow voids are maintained. No evidence of restricted diffusion to suggest parenchymal infarct. T2 shine through is noted in the left cerebrum. There does appear to be a component of restricted diffusion in the right cerebellar hemisphere, likely due to a neoplasm with a high nucleus to cytoplasmic ratio. Postcontrast images:Peripherally enhancing mass in the right cerebellar hemisphere measures 1.7 x 2.1 cm, previously measuring 1.6 x 1.2 cm. No additional abnormal enhancement in the posterior fossa. There is an enhancing focus in the left parietal lobe measuring 1.8 x 1.3 cm, previously measuring 1. 2 x 0.9 cm. No new areas of pathologic enhancement in the brain parenchyma. IMPRESSION: 1. Redemonstration of 2 separate metastatic deposits in the brain parenchyma, as described above. Bot h lesions have increased in size since the previous examination. 2. No new intraaxial metastatic lesions. Transcribed Date/Time: 07/04/2019 11:38 AM
--- NOTE | 2019-07-04 13:50 | PDOC.FPRHP ---
- History of Present Illness Chief Complaint: weakness History of Present Illness: 68 y/o F with pmhx of small cell lung ca with mets to the brain, hypothyroidism , and COPD presents to the ED from Dr. Chahal's office for RUE coordination trouble/weakness, and generalized weakness. The pt was walking this morning about 7:30, when she became overwhelmingly weak and had to sit down. She became confused as well. Her speech was fluent, but she stops mid sentence unable to finish her thoughts per cousin with her. Pt was taken to her appointment with Dr. Chahal, who advised going to the ED. ED course: Dr. Chahal was concerned of an acute brain hemorrhage. CT head was neg for hemorrhage, mid-line shift. Showed vasogenic edema and increase in size of previous mets. MRI was negative for acute infarction, showed mets and vasogenic edema. Pt then developed difficulty finding words in her speech while in the ED. Dr. Chahal recommended the pt be placed in the hospital with the new aphasia symptoms. - Allergies/Adverse Reactions Allergies Allergy/AdvReac Type Severity Reaction Status Date / Time ciprofloxacin [From Cipro] Allergy Severe Anxiety Verified 07/04/19 15:22 gluten Allergy Severe Hives Verified 07/04/19 15:22 - Home Medications Medication Instructions Recorded Confirmed Type Albuterol Sulfate [Ventolin Hfa] 2 puff INH Q4H PRN #1 hfa.aer.ad 08/28/1807/03 Rx Benzonatate [Tessalon] 100 mg PO TIDPRN PRN #90 cap 08/28/18 07/04/19 Rx Citalopram [CeleXA] 10 mg PO HS #30 tab 08/28/18 07/04/19 Rx Cyanocobalamin 1000 MCG/ML VIA 1,000 mcg IM Q28D #3 vial 08/28/18 07/04/19 Rx [Vitamin B-12] Mometasone/Formoterol 200/5 2 puff INH BID-RT #1 aer 08/28/18 07/04/19 Rx [Dulera 200 Mcg/5 Mcg Inhaler] Polyethylene Glycol 3350 [Miralax] 17 gm PO DAILYPRN PRN pk 08/28/18 07/04/19 Rx Ondansetron HCl [Zofran] 8 mg PO Q8HR PRN 04/12/19 07/04/19 History Prochlorperazine Maleate 10 mg PO Q8HR PRN 04/12/19 07/04/19 History [Compazine] Aspirin [Ecotrin Low Strength] 81 mg PO DAILY 30 Days #30 tab 04/14/19 07/04/19 Rx Atorvastatin Calcium [Lipitor] 40 mg PO HS 30 Days #30 tab 04/14/19 07/04/19 Rx Pantoprazole [Protonix] 40 mg PO DAILY 30 Days #30 tab 04/14/19 07/04/19 Rx Levothyroxine Sodium [Synthroid] 50 mcg PO DAILY 06/30/19 07/04/19 History Memantine HCl [Namenda] 10 mg PO BID 06/30/19 07/04/19 History Dexamethasone [Decadron] 4 mg PO QID #56 tab 07/03/19 07/04/19 Rx levETIRAcetam [Keppra] 1,000 mg PO BID #60 tab 07/03/19 07/04/19 Rx - History PMHx: metastatic (to brain) small cell lung cancer s/p chemo and radiation, anemia, COPD, hypothyroidism, dysthymia PSHx: bilateral prophylactic mastectomy with breast implants, appendectomy, total hysterectomy, tonsillectomy FHx: mother-ovarian cancer, paternal aunt-breast cancer Social: 15pack year smoking hx, quit 1 year ago, denies etoh or drug use - Review of Systems General: reports: weight/appetite/sleep changes, fatigue. denies: fever/chills Eyes: denies: vision changes ENT: denies: nasal congestion Respiratory: denies: shortness of breath Cardiovascular: denies: chest pain, edema Gastrointestinal: reports: nausea. denies: vomiting, diarrhea, constipation, abdominal pain, GI bleeding Genitourinary: denies: incontinence Skin: denies: rashes, lesions Musculoskeletal: denies: pain Neurological: reports: weakness (RUE), other (aphasia). denies: numbness, syncope - Vital signs BP: 134/67, MAP: 89, Pulse: 73, Resp: 18, Pain: 0, O2 sat: 95 on (Room Air), Time: 07/04/2019 12:00. weight: 63kg - Physical Exam Constitutional: NAD -Constitutional: speaks in 3 word sentences, unable to finish thought/retrieve words HEENT: normocephalic and atraumatic, PERRLA, EOMI, conjunctiva clear, no scleral icterus, grossly normal vision, grossly normal hearing, MMM Neck: supple, trachea midline, no JVD Chest: no-tender to palpation, no lesions Heart: RRR, normal S1/S2, no murmurs/rubs/gallops, pulses present, no edema Lungs: CTAB, no respiratory distress, good air movement, no wheezing, no retractions Abdomen: soft, non-tender, bowel sounds present Musculoskeletal: normal structure, normal tone Neurological: CN II-XII intact, normal sensation, DTRs 2+ -Neurological: word finding difficulty no slurring of speech [id number]-[id number] not intact on the right, intact on Left. Skin: no rash/lesions, good turgor, capillary refill <2 seconds Heme/Lymphatic: no purpura, no petechia FMR H&P: Results - Labs Result Diagrams: 07/05/19 04:04 07/05/19 04:04 Lab results: WBC 8.6 thou/uL (4.8-10.8) 07/04/19 09:35 Hgb 13.4 g/dL (12.0-16.0) 07/04/19 09:35 Hct 40.1 % (36.0-47.0) 07/04/19 09:35 MCV 91.1 fL (78.0-98.0) 07/04/19 09:35 Plt Count 337 thou/uL (130-400) 07/04/19 09:35 Neutrophils % 84.0 % (42.0-75.0) H 07/04/19 09:35 Sodium 130 mmol/L (136-145) L 07/04/19 09:35 Potassium 4.0 mmol/L (3.5-5.1) 07/04/19 09:35 Chloride 96 mmol/L (98-107) L 07/04/19 09:35 Carbon Dioxide 22 mmol/L (23-31) L 07/04/19 09:35 BUN 9 mg/dL (9.8-20.1) L 07/04/19 09:35 Creatinine 0.63 mg/dL (0.6-1.1) 07/04/19 09:35 Glucose 174 mg/dL (80-115) H 07/04/19 09:35 Calcium 9.7 mg/dL (7.8-10.44) 07/04/19 09:35 Total Bilirubin 0.5 mg/dL (0.2-1.2) 07/04/19 09:35 AST 40 U/L (5-34) H 07/04/19 09:35 ALT 70 U/L (8-55) H 07/04/19 09:35 Alkaline Phosphatase 384 U/L (40-110) H 07/04/19 09:35 Serum Total Protein 7.7 g/dL (6.0-8.3) 07/04/19 09:35 Albumin 4.1 g/dL (3.4-4.8) 07/04/19 09:35 - Radiology Interpretation MRI - head Status: report reviewed by me (L parietal and R cerebellar mass increase in size , with vasogenic edema no acute ischemia) CT scan - head Status: report reviewed by me (L parietal and R cerebellar mass increase in size , with vasogenic edema no midline shift, or hemorrhage) FMR H&P: A/P - Problem List (1) Aphasia Current Visit: Yes Status: Acute Code(s): R47.01 - APHASIA (2) Small cell carcinoma of right lung Current Visit: Yes Status: Chronic Code(s): C34.91 - MALIGNANT NEOPLASM OF UNSP PART OF RIGHT BRONCHUS OR LUNG (3) Vasogenic brain edema Current Visit: Yes Status: Chronic Code(s): G93.6 - CEREBRAL EDEMA (4) Brain metastasis Current Visit: Yes Status: Chronic Code(s): C79.31 - SECONDARY MALIGNANT NEOPLASM OF BRAIN (5) Hypothyroidism Current Visit: Yes Status: Chronic Code(s): E03.9 - HYPOTHYROIDISM, UNSPECIFIED (6) JOSEPH (obstructive sleep apnea) Current Visit: Yes Status: Chronic Code(s): G47.33 - OBSTRUCTIVE SLEEP APNEA (ADULT) (PEDIATRIC) - Plan 68 y/o F with small cell carcinoma of the lung, with mets to the brain presents to the ED with worsening weakness, R arm coordination problems and aphasia. 1. Small Cell Lung CA, with mets to brain causing vasogenic edema, and mass effect. - aphasia, RUE coordination difficulties - MRI showed increase in tumor size, and slight increase in vasogenic edema - continue decadron 4 mg QID for the vasogenic edema. - Oncology, Dr. Chahal consulted, appreciate recommendations. Discussing further treatment options. - Palliative care consulted, appreciate help with goals of care discussion. - CT brain: R cerebellar and L upper parietal mass same form previous exams. - MRI brain: L-parietal and R cerebellar lobe vasogenic edema and increase in size of mets from previous MRI. See reports for full details. - speech consult and recommendations on diet type to decrease aspiration risk. 2. Hyponatremia - Most likely associated from the small cell lung cancer and possible SIADH - will trend daily, placed pt on LR @ 90 ml/hr 3. Transaminitis - 2/2 chemotherapy - will trend and monitor for improvement. 4. Hx of focal seizures - continue keppra 100 mg BID - no seizure like activity today. 5. Hx of COPD - continue home ventolin and dulera inhalers. 6. hypothyroidism -continue home synthroid Code status: DNR, discussed with Pt and medical power of commercial litigation attorney, pt's cousin. Diet: NPO until speech consult and recs on diet. DVT ppx: lovenox Dispo: stable, admit to oncology floor for further recommendation from Dr. Chahal and palliative care to discuss goals of care. FMR H&P: Upper Level - Pertinent history 68F with pmh of lung cancer with mets to the brain and DC from hospital yesterday. She was hospitalized for seizures and had keppra dosing increased per neuro recs was DCd yesterday so she could make her appointment with Dr. Chahal to receive keytruda chemotherapy which is unable to be administered in hospital. Today she presents after having an episode of confusion at 8am and has had difficulty with speech ever since. Otherwise they deny new neurologic deficit on top of her baseline R sided coordination deficit. - Pertinent findings Vitals as noted in note above NEURO: dysmetria bilaterally (worse on R), otherwise CN 2-12 wnl, patellar DTRs wnl, biceps strength and quadriceps strength 5/5 bilaterally, sensation equally in all extremeties, PERRL - Plan Date/Time: 07/04/19 1350 I, Solo [id number], have evaluated this patient and agree with findings/ plan as outlined by internet security specialist resident. Pertinent changes/additions are listed here. Aphasia 2/2 worsening brain mets with intracranial vasogenic edema A- MRI shows increased size of lesions, increased edema on L, decreased edema on R. We have contacted Dr. Chahal (recs much appreciated) who recommends admission to onc floor to explore other potential chemotherapy options vs. the possibility of palliative care. [facility] [place] been thinking of [place]ice but needs to discuss with other family members. P- will admit to oncology -continue home steroids -consult Dr. Chahal from ED -NPO until Speech therapy can eval -mIVF Focal seizures 2/2 brain mets with vasogenic edema A- From pt hx it seems that seizure like activity today is unlikely. P- continue Keppra at home dosing DVT Ppx: lovenox CODE: DNAR as discussed with [facility] All other chronic medical conditions per mgmt as described in above internet security specialist note. Addendum - Attending - Attending Attestation Date/Time: 07/05/19 2608 I personally evaluated the patient and discussed the management with Dr. Pedersen/ Edward. I agree with the History, Examination, Assessment and Plan documented above with any addition or exceptions noted below.
[2019-07-04] MEDS ORDERED: PROVENTIL INHALER 6.7 G (200 INHALATIONS) INH PRN (13:55)
[2019-07-04] MEDS ORDERED: Prochlorperazine Maleate 5 MG TAB PO PRN (13:55)
[2019-07-04] MEDS ORDERED: Benzonatate 100 MG CAP PO PRN (13:55)
[2019-07-04] MEDS ORDERED: Polyethylene Glycol 3350 17 GM Packet PO PRN (13:55)
[2019-07-04] MEDS ORDERED: Dexamethasone 4 MG TAB PO SCH (14:30)
[2019-07-04] MEDS ORDERED: Magnevist 469MG/ML 20 ML VIAL ONE (14:38)
[2019-07-04 15:15] VITALS: BMI 24.1
[2019-07-04] MEDS ORDERED: Morphine 2 MG/ML SYRINGE SLOW IVP PRN (17:20)
[2019-07-04] MEDS: Ibuprofen 800 MG TAB PO PRN (17:30)
[2019-07-04] MEDS: Dexamethasone 4 MG TAB PO SCH ×2 (17:30→20:57)
[2019-07-04] MEDS: Lactated Ringer's 1,000 ML IV SCH (17:31)
[2019-07-04] MEDS: Ondansetron PF 4 MG/2 ML Vial IVP PRN (19:34)
[2019-07-04] MEDS: Mometasone/Formoterol 120 PUFF INHALER INH SCH (20:06)
[2019-07-04] MEDS: Atorvastatin Calcium 40 MG TAB PO SCH (20:57)
[2019-07-04] MEDS: levETIRAcetam 500 MG TAB PO SCH (20:57)
[2019-07-04] MEDS: Citalopram 10 MG TAB PO SCH (21:29)
[2019-07-05] MEDS: Lactated Ringer's 1,000 ML IV SCH ×2 (04:09→15:56)
[2019-07-05 04:22] LABS: #Lymphocytes 0.7 thou/uL (1.20-3.40); #Monocytes 0.7 thou/uL (0.11-0.59); #Neutrophils 4.5 thou/uL (1.40-6.50); %Basophils 0.2 % (0.0-1.0); %Eosinophils 0.5 % (0.0-10.0); %Lymphocytes 12.3 % (21.0-51.0); %Monocytes 11.1 % (0.0-10.0); %Neutrophils 75.9 % (42.0-75.0); Hemoglobin 12.3 g/dL (12.0-16.0); Mean Corpuscular HGB CONC 32.4 g/dL (32.0-36.0); Mean Corpuscular Hemoglobin 29.5 pg (27.0-31.0); Mean Corpuscular Volume 90.9 fL (78.0-98.0); Mean Platelet Volume 6.7 fL (7.4-10.4); Platelet Count 350 thou/uL (130-400); RBC Distribution Width 13.8 % (11.5-14.5); Red Blood Cell (RBC) Count 4.19 mill/uL (4.20-5.40)
[2019-07-05 04:56] LABS: ALT (SGPT) 60 U/L (8-55); AST (SGOT) 35 U/L (5-34); Albumin 3.7 g/dL (3.4-4.8); Alkaline Phosphatase 329 U/L (40-110); Anion Gap 11 mmol/L (10-20); BUN (Urea Nitrogen) 8 mg/dL (9.8-20.1); Bilirubin, Total 0.5 mg/dL (0.2-1.2); Calc. Creatinine Clearance 89 mL/min (70-130); Calcium 9.5 mg/dL (7.8-10.44); Carbon Dioxide 27 mmol/L (23-31); Chloride 100 mmol/L (98-107); Estimated GFR-MDRD Greater than 90; Glucose 143 mg/dL (80-115); Potassium 4.3 mmol/L (3.5-5.1); Protein, Total 6.7 g/dL (6.0-8.3); Sodium 134 mmol/L (136-145)
[2019-07-05] MEDS: Ondansetron PF 4 MG/2 ML Vial IVP PRN (06:06)
[2019-07-05] MEDS: Levothyroxine Sodium 50 MCG TAB PO SCH (06:06)
--- NOTE | 2019-07-05 06:19 | PDOC.FM ---
- Subjective Subjective: Pt states she feels better from yesterday, and cousin states she is not completely back to her baseline. They desire to speak with palliative care about options for care. Denies CP, SOB. C/o headache and nausea. - Objective MAR Reviewed: Yes Vital Signs & Weight: Vital Signs (12 hours) Temp Pulse Resp BP Pulse Ox 07/05/19 04:04 98.2 F 72 16 128/73 99 07/05/19 02:59 95 07/05/19 00:02 98.1 F 65 16 130/68 99 07/04/19 20:11 96 07/04/19 20:06 18 96 07/04/19 20:00 95 07/04/19 19:43 97.7 F 67 18 127/68 95 Weight Weight 67.812 kg I&O: 07/03/19 07/04/19 07/05/19 06:59 06:59 06:59 Intake Total 490 Output Total 100 Balance 390 Result Diagrams: 07/05/19 04:04 07/05/19 04:04 Phys Exam - Physical Examination Constitutional: NAD HEENT: moist MMs, sclera anicteric Neck: no JVD, supple Respiratory: no wheezing, no rales, no rhonchi, clear to auscultation bilateral Cardiovascular: RRR, no significant murmur, no rub Gastrointestinal: soft, non-tender, no distention, positive bowel sounds Musculoskeletal: no edema, pulses present Neurological: non-focal, moves all 4 limbs CN II-XII intact, strength 5/5 in nupper and lower ext. Psychiatric: normal affect, A&O x 3 Skin: no rash, normal turgor Dx/Plan (1) Aphasia Code(s): R47.01 - APHASIA Status: Acute (2) Small cell carcinoma of right lung Code(s): C34.91 - MALIGNANT NEOPLASM OF UNSP PART OF RIGHT BRONCHUS OR LUNG Status: Chronic (3) Vasogenic brain edema Code(s): G93.6 - CEREBRAL EDEMA Status: Chronic (4) Brain metastasis Code(s): C79.31 - SECONDARY MALIGNANT NEOPLASM OF BRAIN Status: Chronic (5) Hypothyroidism Code(s): E03.9 - HYPOTHYROIDISM, UNSPECIFIED Status: Chronic (6) JOSEPH (obstructive sleep apnea) Code(s): G47.33 - OBSTRUCTIVE SLEEP APNEA (ADULT) (PEDIATRIC) Status: Chronic - Plan Plan: 68 y/o F with small cell carcinoma of the lung, with mets to the brain presents to the ED with worsening weakness, R arm coordination problems and aphasia. 1. Small Cell Lung CA, with mets to brain causing vasogenic edema, and mass effect. - aphasia, RUE coordination difficulties improved, pt back to baseline. - MRI showed increase in tumor size, and slight increase in vasogenic edema - continue decadron 4 mg QID for the vasogenic edema. - Oncology, Dr. Chahal consulted, appreciate recommendations. Discussing further treatment options. - Palliative care consulted, appreciate help with goals of care discussion. - CT brain: R cerebellar and L upper parietal mass same form previous exams. - MRI brain: L-parietal and R cerebellar lobe vasogenic edema and increase in size of mets from previous MRI. See reports for full details. - speech consult and recommendations on diet type to decrease aspiration risk. Passed swallow study at bedside. 2. Hyponatremia, improving - Most likely associated from the small cell lung cancer and possible SIADH - will trend daily, placed pt on LR @ 90 ml/hr 3. Transaminitis - 2/2 chemotherapy - will trend and monitor for improvement. 4. Hx of focal seizures - continue keppra 1000 mg BID - no seizure like activity today. 5. Hx of COPD - continue home ventolin and dulera inhalers. 6. hypothyroidism -continue home synthroid Code status: DNR, discussed with Pt and medical power of study lead, pt's cousin. Diet:Regular DVT ppx: lovenox Dispo: stable, admit to oncology floor for further recommendation from Dr. Chahal and palliative care to discuss goals of care. Addendum - Attending - Attending Attestation Date/Time: 07/05/19 [id number] I personally evaluated the patient and discussed the management with Dr. Pedersen. I agree with the History, Examination, Assessment and Plan documented above with any addition or exceptions noted below. Patient improved. She will have discussion with palliative care and Oncology today and further mgmt will be dictated by those conversations. Continue therapy.
[2019-07-05] MEDS: Mometasone/Formoterol 120 PUFF INHALER INH SCH ×2 (08:15→19:43)
[2019-07-05] MEDS: levETIRAcetam 500 MG TAB PO SCH ×2 (09:08→20:57)
[2019-07-05] MEDS: Aspirin 81 mg Enteric Coated Tablet PO SCH (09:08)
[2019-07-05] MEDS: Ibuprofen 800 MG TAB PO PRN ×2 (09:08→16:05)
[2019-07-05] MEDS: Dexamethasone 4 MG TAB PO SCH ×4 (09:08→20:57)
[2019-07-05] MEDS: Enoxaparin Sodium 40 MG/0.4 ML SYRINGE SC SCH (09:09)
--- NOTE | 2019-07-05 10:07 | PDOC.FMACP ---
Advance Care Planning - Problem (1) Palliative care encounter Status: Acute Code(s): Z51.5 - ENCOUNTER FOR PALLIATIVE CARE (2) Brain metastasis Status: Chronic Code(s): C79.31 - SECONDARY MALIGNANT NEOPLASM OF BRAIN (3) Small cell carcinoma of right lung Status: Chronic Code(s): C34.91 - MALIGNANT NEOPLASM OF UNSP PART OF RIGHT BRONCHUS OR LUNG (4) Vasogenic brain edema Status: Chronic Code(s): G93.6 - CEREBRAL EDEMA (5) Tonic clonic seizures Status: Acute Code(s): G40.409 - OTH GENERALIZED EPILEPSY, NOT INTRACTABLE, W/ O STAT EPI - Note Participants: patient, surrogate decision-maker, palliative care Summary: Advanced Care Planning was discussed. The diagnosis, prognosis and goals of care were discussed. Appropriate forms and documentation to accomplish the goals of care were discussed. All questions were answered. The Palliative Care Team will be engaged to assist with completion of any outstanding forms that are needed. Patient desires to continue with current chemo treatment understanding that it is palliative, will transition to hospice at the conclusion of current chemo ( as per patient and Flor 3 treatments remain. MPOA is friend Flor, documents confirmed. Patient confirms DNAR and OOHDNAR complete. Choice letter for [facility] signed for home health/Palliative with anticipated transition to Hospice.
--- NOTE | 2019-07-05 14:40 | PDOC.PALCO ---
Palliative Care Consult - Consult Details Requesting Physician: Dr Pedersen Reason for Consult: goals of care, assistance with communication prognosis/ disease Family Members Present: JOSÉ MIGUEL Ray - Pertinent HPI 68 year old female who lives independently, currently receiving chemo for lung cancer with mets. Discharged less than one week ago and had an onset of upper extremity incoordination with weakness and delay in speech pattern. Presented to the emergency room for further evaluation. CT identified vasogenis edema and increase in brain metastasis. Admitted for further medical management. - Pertinent PMH Small lung cell ca with mets, COPD, Anemia, hypothyroid, dysthymia, - Social History Smoking Status: Former smoker Smoking: cigarettes Alcohol Use: none Drug Use History: none Living Situation: independent - Medications MAR Reviewed: Yes - Allergies Allergies/Adverse Reactions: Allergies Allergy/AdvReac Type Severity Reaction Status Date / Time ciprofloxacin [From Cipro] Allergy Severe Anxiety Verified 07/04/19 15:22 gluten Allergy Severe Hives Verified 07/04/19 15:22 - Subjective Awake, friends at bedside. Participates in conversation and planning for Goal of Care. Patient with delayed thought pattern and difficult at times with short term recall. - ROS Constitutional: loss appetite, sleep changes, weakness Eyes: other (denies visiion changes) ENT: other (denies difficulity swallowing, congestion) Respiratory: shortness of breath, other (Denies cough) Cardiology: other (Denies chest pain, palpitations) Gastrointestinal: nausea Musculoskeletal: other (denies pain, confirmes difficulity ambulating) Neurological: change in speech, seizure Psychological: memory changes - Objective Vital Signs: Vital Signs - Most Recent Temp Pulse Resp BP Pulse Ox 97.7 F 68 18 138/68 93 L 07/05/19 11:40 07/05/19 11:40 07/05/19 11:40 07/05/19 11:40 07/05/19 11:40 Palliative Performance Scale: 50 - Physical Exam Constitutional: confusion, ill appearing HEENT: EOMI, moist MMs, sclera anicteric Respiratory: no wheezing, unlabored breathing Cardiovascular: RRR Gastrointestinal: soft, non-tender, positive bowel sounds Genitourinary: continent Musculoskeletal: no cyanosis, no clubbing, pulses present Neurology: speech deficit Skin: cap refill <2 seconds, bruising Deviation from normal: Pallor Psychiatric: A&O x 3 Deviation from normal: intermittant poor short term memory recall - Problem List (1) Palliative care encounter Code(s): Z51.5 - ENCOUNTER FOR PALLIATIVE CARE Current Visit: Yes Status: Acute (2) Brain metastasis Code(s): C79.31 - SECONDARY MALIGNANT NEOPLASM OF BRAIN Current Visit: Yes Status: Chronic (3) Small cell carcinoma of right lung Code(s): C34.91 - MALIGNANT NEOPLASM OF UNSP PART OF RIGHT BRONCHUS OR LUNG Current Visit: Yes Status: Chronic (4) Vasogenic brain edema Code(s): G93.6 - CEREBRAL EDEMA Current Visit: Yes Status: Chronic (5) Tonic clonic seizures Code(s): G40.409 - OTH GENERALIZED EPILEPSY, NOT INTRACTABLE, W/O STAT EPI Current Visit: No Status: Acute (6) Physical deconditioning Code(s): R53.81 - OTHER MALAISE Current Visit: Yes Status: Acute (7) Anorexia Code(s): R63.0 - ANOREXIA Current Visit: Yes Status: Acute (8) Nausea Code(s): R11.0 - NAUSEA Current Visit: Yes Status: Acute - Plan/Recommendations Plan: Fatigue a concern Discussed CoQ10 400mg PO when at home, and continue B12. Will communicate with Home Health Palliative Care and suggest 5mg short acing Adderall for times patient requires increase in wakeful state and energy. For nutrition Marinol added, hope to continue with discharge. Teaching to use half shake ( likes shake from [employer]) and using protein shake. Avoid hot meals, encourage cool/cold meals and small portions. Encourage foods she likes. Nausea: Discussed taking Zofran scheduled in the home setting. Choice letter for [facility] for setting up a meeting at home Wednesday when other family arrives. Will begin with Home Health/Palliative to mitigate symptoms while continuing palliative chemo, then transition to hospice at the completion of chemo. [facility] to assist family and patient with anticipated situations such as seizure, altered mental status and address a plan for the home setting to allow the patient and family to "respond and not react". Communicated with Dr Pedersen Please also refer to [facility] research laboratory specialist notes. [70] minutes spent on this encounter with >50% of the time in counseling and coordination of care. Thank you for this very appropriate consult.
[2019-07-05] MEDS: Dronabinol 2.5 MG CAP PO SCH (18:56)
[2019-07-05] MEDS: Atorvastatin Calcium 40 MG TAB PO SCH (20:57)
[2019-07-05] MEDS: Citalopram 10 MG TAB PO SCH (21:29)
[2019-07-06] MEDS: Lactated Ringer's 1,000 ML IV SCH (03:33)
[2019-07-06 04:33] LABS: #Basophils 0.1 thou/uL (0.0-0.2); #Lymphocytes 0.7 thou/uL (1.20-3.40); #Monocytes 0.6 thou/uL (0.11-0.59); #Neutrophils 5.2 thou/uL (1.40-6.50); %Basophils 1.1 % (0.0-1.0); %Eosinophils 0.2 % (0.0-10.0); %Lymphocytes 10.9 % (21.0-51.0); %Monocytes 9.3 % (0.0-10.0); %Neutrophils 78.5 % (42.0-75.0); Hemoglobin 12.5 g/dL (12.0-16.0); Mean Corpuscular HGB CONC 33.4 g/dL (32.0-36.0); Mean Corpuscular Hemoglobin 30.1 pg (27.0-31.0); Mean Corpuscular Volume 90.2 fL (78.0-98.0); Mean Platelet Volume 6.5 fL (7.4-10.4); Platelet Count 358 thou/uL (130-400); RBC Distribution Width 13.6 % (11.5-14.5); Red Blood Cell (RBC) Count 4.15 mill/uL (4.20-5.40); White Blood Cell (WBC) Count 6.6 thou/uL (4.8-10.8)
[2019-07-06 05:04] LABS: ALT (SGPT) 52 U/L (8-55); AST (SGOT) 29 U/L (5-34); Albumin 3.8 g/dL (3.4-4.8); Alkaline Phosphatase 329 U/L (40-110); Anion Gap 13 mmol/L (10-20); BUN (Urea Nitrogen) 7 mg/dL (9.8-20.1); Bilirubin, Total 0.4 mg/dL (0.2-1.2); Calc. Creatinine Clearance 89 mL/min (70-130); Calcium 9.6 mg/dL (7.8-10.44); Carbon Dioxide 28 mmol/L (23-31); Chloride 98 mmol/L (98-107); Estimated GFR-MDRD Greater than 90; Globulin 2.9 g/dL (2.4-3.5); Glucose 156 mg/dL (80-115); Potassium 3.8 mmol/L (3.5-5.1); Protein, Total 6.7 g/dL (6.0-8.3); Sodium 135 mmol/L (136-145)
[2019-07-06] MEDS: Levothyroxine Sodium 50 MCG TAB PO SCH (05:59)
--- NOTE | 2019-07-06 06:29 | PDOC.FM ---
- Subjective Subjective: Pt eager to return home. Eating breakfast this morning upon entry to the room. Sitting up talking, smiling. Denies pain, or sob. - Objective MAR Reviewed: Yes Vital Signs & Weight: Vital Signs (12 hours) Temp Pulse Resp BP Pulse Ox 07/05/19 20:00 94 L 07/05/19 19:44 94 L 07/05/19 19:43 16 94 L 07/05/19 19:30 98.0 F 60 16 123/60 94 L Weight Admit Weight 67.812 kg Weight 67.812 kg I&O: 07/04/19 07/05/19 07/06/19 06:59 06:59 06:59 Intake Total 490 2730 Output Total 100 350 Balance 390 2380 Result Diagrams: 07/06/19 04:06 07/06/19 04:06 Phys Exam - Physical Examination Constitutional: NAD HEENT: moist MMs, sclera anicteric Neck: supple, full ROM Respiratory: no wheezing, no rales, no rhonchi, clear to auscultation bilateral Cardiovascular: RRR, no significant murmur, no rub Gastrointestinal: soft, non-tender, no distention, positive bowel sounds Musculoskeletal: no edema, pulses present Neurological: non-focal, moves all 4 limbs Psychiatric: normal affect, A&O x 3 Skin: no rash, normal turgor, cap refill <2 seconds Dx/Plan (1) Aphasia Code(s): R47.01 - APHASIA Status: Acute (2) Small cell carcinoma of right lung Code(s): C34.91 - MALIGNANT NEOPLASM OF UNSP PART OF RIGHT BRONCHUS OR LUNG Status: Chronic (3) Vasogenic brain edema Code(s): G93.6 - CEREBRAL EDEMA Status: Chronic (4) Brain metastasis Code(s): C79.31 - SECONDARY MALIGNANT NEOPLASM OF BRAIN Status: Chronic (5) Hypothyroidism Code(s): E03.9 - HYPOTHYROIDISM, UNSPECIFIED Status: Chronic (6) JOSEPH (obstructive sleep apnea) Code(s): G47.33 - OBSTRUCTIVE SLEEP APNEA (ADULT) (PEDIATRIC) Status: Chronic - Plan Plan: 68 y/o F with small cell carcinoma of the lung, with mets to the brain presents to the ED with worsening weakness, R arm coordination problems and aphasia. 1. Small Cell Lung CA, with mets to brain causing vasogenic edema, and mass effect. - aphasia, RUE coordination difficulties improved, pt back to baseline. - MRI showed increase in tumor size, and slight increase in vasogenic edema - continue decadron 4 mg QID for the vasogenic edema. - Oncology, Dr. Chahal consulted, appreciate recommendations. Discussing further treatment options. - Palliative care consulted, appreciate help with goals of care discussion. Plan to go home with HH and finish chemo regimen for palliative measures, then transition to hospice care. Will d/c home on adderall and marinol. - CT brain: R cerebellar and L upper parietal mass same form previous exams. - MRI brain: L-parietal and R cerebellar lobe vasogenic edema and increase in size of mets from previous MRI. See reports for full details. - speech consult and recommendations on diet type to decrease aspiration risk. Passed swallow study at bedside. 2. Hyponatremia, improving - Most likely associated from the small cell lung cancer and possible SIADH - will trend daily, placed pt on LR @ 90 ml/hr 3. Transaminitis - 2/2 chemotherapy - will trend and monitor for improvement. 4. Hx of focal seizures - continue keppra 1000 mg BID - no seizure like activity today. 5. Hx of COPD - continue home ventolin and dulera inhalers. 6. hypothyroidism -continue home synthroid Code status: DNR, discussed with Pt and medical power of collections attorney, pt's cousin. Diet:Regular DVT ppx: lovenox Dispo: stable, d/c home today. Addendum - Attending - Attending Attestation Date/Time: 07/06/19 2525 I personally evaluated the patient and discussed the management with Dr. Pedersen. I agree with the History, Examination, Assessment and Plan documented above with any addition or exceptions noted below.
[2019-07-06] MEDS: Ondansetron PF 4 MG/2 ML Vial IVP PRN (07:23)
[2019-07-06 07:35] VITALS: BP 120/56; TEMP 98.6
[2019-07-06] MEDS: Mometasone/Formoterol 120 PUFF INHALER INH SCH (07:54)
--- NOTE | 2019-07-06 08:19 | CON ---
DATE OF CONSULTATION: REASON FOR CONSULTATION: Small-cell lung cancer. HISTORY OF PRESENT ILLNESS: A 68-year-old female with a small-cell lung cancer with brain mets, presenting to the hospital with right upper extremity weakness and dis-coordination and aphasia. The patient was recently admitted after multiple seizure-like episodes last week and that showed worsening vasogenic edema, she was started on steroids and increased Keppra and had no further episodes. She presented to the clinic yesterday for Keytruda, and was found to have severe right upper extremity dis-coordination, weakness, unable to move her arm, at the shoulder or elbow joint; however, still had movement in her finger tips. I sent her over to the ER. At the ER, she developed aphasia. Had an MRI of the brain, that did show progression of 2 known lesions without any new ones. Currently, her symptoms have resolved and she has full use of her right upper extremity and speaks very clearly and has a normal swallowing. Other than generalized weakness, she has a mild posterior headache. REVIEW OF SYSTEMS: Ten-point review of systems negative except as per HPI. PAST MEDICAL HISTORY: 1. Small-cell lung cancer. 2. Tobacco abuse. 3. Hypothyroidism. 4. GERD. 5. Obstructive sleep apnea. 6. Depression. PAST SURGICAL HISTORY: 1. Vaginal hysterectomy. 2. Oophorectomy. 3. Bilateral mastectomy. 4. mediport. SOCIAL HISTORY: Long-term tobacco abuse. CURRENT MEDICATIONS: Reviewed. ALLERGIES: CIPROFLOXACIN, GLUTEN. PHYSICAL EXAMINATION: VITAL SIGNS: Temperature 97.7, pulse 68, blood pressure 130/68. GENERAL: She is lying in bed, in no acute distress. HEENT: Normocephalic and atraumatic RESPIRATORY: CTAB CARDIAC: S1 and S2. Regular rhythm and rate. ABDOMEN: Soft and nontender. NEUROLOGIC: Cranial nerves 2 through 12 grossly intact, moves all extremities including right upper extremity LABORATORY DATA: White blood cell 6.0, hemoglobin 12.3, and platelets 350. Sodium 134, BUN 8, and creatinine 0.63. AST 35, ALT 60 IMAGING DATA: MRI of the brain with and without contrast shows right cerebellar lesion and left parietal lobe lesion have increased in size, vasogenic edema remains. ASSESSMENT AND PLAN: A 68-year-old female with extensive stage small cell lung cancer with metastatic disease to brain, status post whole-brain radiation completed 2019 now with progression of disease in the brain. The patient's acute neurologic symptoms have completely resolved suggestive of potential transient worsening or vasogenic edema, which has now improved. She continued on Keppra and dexamethasone 4 mg q.6 and we recommend continuing this at this time. I will discuss with Dr. Ren if there is a potential for stereotactic radiation to these 2 lesions given her recurrent symptoms, although this is less likely given recent completion of whole-brain radiation. We will plan on continuing her Keytruda for now given her systemic disease disease appears controlled, although the likelihood of intracranial response is likely in the realm of only 10%. However, no other chemotherapy options will likely provide response with exception potentially of Temodar. I have discussed palliative care with the patient and she agrees to see them today; however, I did not believe she requires hospice yet at this time. From an oncologic standpoint, she can be discharged with outpatient followup with me in clinic to continue Keytruda. Job ID: [id number] MTDD
[2019-07-06] MEDS: Dronabinol 2.5 MG CAP PO SCH (09:01)
[2019-07-06] MEDS: levETIRAcetam 500 MG TAB PO SCH (09:05)
[2019-07-06] MEDS: Dexamethasone 4 MG TAB PO SCH ×2 (09:05→13:25)
[2019-07-06] MEDS: Enoxaparin Sodium 40 MG/0.4 ML SYRINGE SC SCH (09:05)
[2019-07-06] MEDS: Aspirin 81 mg Enteric Coated Tablet PO SCH (09:06)
--- NOTE | 2019-07-07 04:47 | DIS ---
DATE OF ADMISSION: 07/04/2019 DATE OF DISCHARGE: 07/06/2019 RESIDENT: Kirsten Pedersen DO ADMITTING ATTENDING: Сергей Ha MD DISCHARGE ATTENDING: Сергей Ha MD. CONSULTS: Palliative Care and Dr. Chahal. PROCEDURES: Brain MRI, which showed increasing size of brain metastasis as well as vasogenic edema, but no acute ischemic stroke, midline shift, or acute hemorrhage. Brain CT showed no acute hemorrhage, midline shift, which show previous brain mets as well as vasogenic edema. DIAGNOSES: 1. Small-cell lung cancer with metastasis to brain causing vasogenic edema and mass effect. 2. Hyponatremia. 3. Transaminitis. 4. History of focal seizure. 5. History of chronic obstructive pulmonary disease. 6. Hypothyroidism. DISCHARGE MEDICATIONS: 1. Ventolin inhaler two puffs inhaled q.4 hours p.r.n. 2. Aspirin 81 mg p.o. daily. 3. Lipitor 40 mg p.o. at bedtime. 4. Tessalon 100 mg p.o. t.i.d. p.r.n. 5. Celexa 10 mg p.o. at bedtime. 6. Vitamin B12 1000 mcg IM q.28 days. 7. Decadron 4 mg p.o. q.i.d. 8. Marinol 2.5 mg p.o. b.i.d. with meals. 9. Levetiracetam or Keppra 1000 mg p.o. b.i.d. 10. Synthroid 50 mcg p.o. daily. 11. Namenda 10 mg p.o. b.i.d. 12. Dulera inhaler two puffs inhaled b.i.d. 13. Zofran 8 mg p.o. q.8 hours p.r.n. 14. Protonix 40 mg p.o. daily. 15. MiraLAX 17 g p.o. daily p.r.n. 16. Compazine 10 mg p.o. q.8 hours. 17. Adderall 5 mg p.o. p.r.n. HISTORY OF PRESENT ILLNESS/HOSPITAL COURSE: Ms. Ava Burnett is a 68-year-old female with a history of small-cell lung cancer with metastasis to the brain with worsening condition, was admitted to the ER on 07/03 due to aphasia and lack of coordination of the right upper extremity and extreme weakness. The patient's overall health has declined rapidly recently and due to that, Palliative Care was consulted. The discussion with palliative Care guided the patient's decision to continue chemotherapy and finish her current regimen for palliative measures and then to switch her care towards hospice. The patient's primary care physician is Dr. Monae at [facility], who also is a physician for hospice care and would like to follow the patient throughout her course of care through hospice. Dr. Chahal is the patient's oncologist and will give the palliative chemo. The patient and the patient's cousin, who is her next of kin are both very agreeable to the plan and eager to return home. Also discussed with Palliatives were methods or medications to help her every day life better. This includes Adderall and Marinol to increase her energy and appetite. The morning of discharge, the patient was tolerating her diet well. Eating normally and eager to return home. DISPOSITION: Stable upon discharge. DISCHARGE INSTRUCTIONS: 1. Location: To home with home health. 2. Diet: Regular diet. 3. Activity: As tolerated with a walker for ambulation. 4. Followup: With Dr. Chahal for palliative chemotherapy as well as home health meeting on Wednesday at the patient's home, and PCP, Dr. Monae in 1 week. Job ID: [id number]
[2019-07-26] MEDS ORDERED: Cyanocobalamin 1000 MCG/ML VIAL IM SCH (09:00)
== END 2019-07-06 14:20 | disposition home or self-care (01) | DRG 54 ==
LOC: ERS 09:04 → ONC 12:52
PROVIDERS: ADMIT Family Medicine; ATTEND Family Medicine
DX: C79.31 Secondary malignant neoplasm of brain (principal); G93.6 Cerebral edema; Z51.5 Encounter for palliative care; Z66 Do not resuscitate; E87.1 Hypo-osmolality and hyponatremia; C34.90 Malignant neoplasm of unspecified part of unspecified bronchus or lung; R47.01 Aphasia; R74.0 Nonspecific elevation of levels of transaminase and lactic acid dehydrogenase [LDH]; G40.909 Epilepsy, unspecified, not intractable, without status epilepticus; D64.9 Anemia, unspecified; F41.9 Anxiety disorder, unspecified; E03.9 Hypothyroidism, unspecified; G47.33 Obstructive sleep apnea (adult) (pediatric); K21.9 Gastro-esophageal reflux disease without esophagitis; F32.9 Major depressive disorder, single episode, unspecified; Z87.891 Personal history of nicotine dependence; Z90.49 Acquired absence of other specified parts of digestive tract; Z90.710 Acquired absence of both cervix and uterus; Z88.1 Allergy status to other antibiotic agents; Z88.8 Allergy status to other drugs, medicaments and biological substances
CPT/HCPCS: 36415; 70450; 70553; 80053; 85025; 93005; A9579; J1650; J2405; J8540; Q0167

== ENCOUNTER 2019-08-20 15:37 | Inpatient (IN) | payer MEDICARE, BC, OTHER ==
[2019-08-20 16:40] LABS: Bacteria/HPF 3+ HPF (None Seen); Bilirubin Negative (Negative); Blood, Urine Trace (Negative); Clarity Turbid (Clear); Glucose, Urine (Dipstick) Greater than 1000 mg/dL (Negative); Leukocyte 250 Leu/uL (Negative); Nitrite Negative (Negative); Protein, Urine (Dipstick) 50 mg/dL (Neg-Trace); RBC/HPF 0-3 HPF (0-3); Squamous Epithelial 0-3 HPF (0-3); Urobilinogen 3 mg/dL (Less than 2); WBC/HPF 21-50 HPF (0-3)
[2019-08-20 16:47] LABS: #Lymphocytes 0.3 thou/uL (1.20-3.40); #Monocytes 0.1 thou/uL (0.11-0.59); #Neutrophils 3.1 thou/uL (1.40-6.50); %Eosinophils 0.5 % (0.0-10.0); %Lymphocytes 8.7 % (21.0-51.0); %Monocytes 1.6 % (0.0-10.0); %Neutrophils 89.2 % (42.0-75.0); Hemoglobin 13.6 g/dL (12.0-16.0); Mean Corpuscular Volume 97.1 fL (78.0-98.0); Mean Platelet Volume 7.1 fL (7.4-10.4); Platelet Count 166 thou/uL (130-400); RBC Distribution Width 14.2 % (11.5-14.5); Red Blood Cell (RBC) Count 4.38 mill/uL (4.20-5.40); White Blood Cell (WBC) Count 3.5 thou/uL (4.8-10.8)
--- NOTE | 2019-08-20 16:48 | RAD ---
Exam: Chest one view HISTORY:Lung cancer. Weakness. Comparison: 05/07/2019 FINDINGS: Mediport: Right-sided Mediport, unchanged. Cardiac silhouette: Normal Aorta: Atherosclerosis Pulmonary vessels: Normal Costophrenic angles: Clear LUNGS: Worsening opacification the right perihilar region suggesting progression of disease. Stable c alcified right paratracheal lymph node. Interval opacification of the right selective left lung base. Pneumothorax: None Osseous abnormalities: None IMPRESSION: 1. Increased opacification the right hilum, suggesting progression of disease. 2. Opacification left lung base which may represent atelectasis, aspiration or pneumonia..
[2019-08-20] MEDS ORDERED: cefTRIAXone\\ROCEPHIN 2 GM VIAL ONE (16:53)
[2019-08-20 17:07] LABS: ALT (SGPT) 83 U/L (8-55); AST (SGOT) 107 U/L (5-34); Albumin 3.3 g/dL (3.4-4.8); Alkaline Phosphatase 278 U/L (40-110); Anion Gap 22 mmol/L (10-20); BUN (Urea Nitrogen) 17 mg/dL (9.8-20.1); Bilirubin, Total 1.2 mg/dL (0.2-1.2); Calc. Creatinine Clearance 0 mL/min (70-130); Carbon Dioxide 18 mmol/L (23-31); Chloride 103 mmol/L (98-107); Estimated GFR-MDRD 78; Globulin 2.3 g/dL (2.4-3.5); Glucose 343 mg/dL (80-115); Potassium 4.5 mmol/L (3.5-5.1); Protein, Total 5.6 g/dL (6.0-8.3); Sodium 138 mmol/L (136-145)
[2019-08-20] MEDS ORDERED: Cefepime 2 GM VIAL ONE (17:10)
[2019-08-20 17:47] LABS: PTT 23.7 SEC (22.9-36.1); Prothrombin Time 12.8 SEC (12.0-14.7)
[2019-08-20] MEDS ORDERED: Vancomycin 1 GM/200 ML BAG ONE (18:00)
--- NOTE | 2019-08-20 18:05 | CT ---
NONCONTRAST CHEST CT: HISTORY: Evaluate for COVID. COMPARISON: None FINDINGS: Limited evaluation the mediastinum due to lack of IV contrast. Calcified right paratracheal lymph nod e measures 1.6 cm. Normal heart size. Small amount of pericardial fluid. Calcification in the mitral annulus. Coronary calcifications. Atherosclerosis of a nonaneurysmal aorta. No evidence of lymphadenopathy or mass in the lower neck or axilla. Right-sided Mediport catheter with termination at the cavoatrial junction. Subdiaphragmatic structures do not demonstrate any acute abnormality. No lytic or blastic lesions in the osseous structures. Trachea and central bronchi are patent. There is narrowing of the proximal right upper lobe bronchus. There is a partially calcified right suprahilar mass, measuring 2.3 x 2.1 cm. No additional masses or nodules in the right lung. Right lung: There are nonspecific linear opacities with areas of bullous change involving the superio r segment of the right lower lobe. Posttreatment change is favored. No significant pleural or foraminal groundglass opacities, crazy paving or reverse halo sign. Additional linear opacities in th e middle lobe and right upper lobe represent scar or atelectasis. Left lung: Scarring and/or atelectasis in the lower lobe. No significant peripheral groundglass opaci fication, crazy paving or reverse halo sign. No pneumothorax. IMPRESSION: 1. No CT evidence of groundglass opacification which is a common finding in early COVID patients. Per ipheral groundglass opacification, crazy paving and reverse halo sign are nonspecific findings for COVID infection. Dedicated testing is recommended to confirm patient's infection status. 2. Right lung mass, suprahilar location. 3. Narrowing of the proximal right upper lobe bronchus. Transcribed Date/Time: 08/20/2019 7:14 PM
--- NOTE | 2019-08-20 19:00 | PDOC.FPRHP ---
Addendum entered and electronically signed by Alley James DO 08/21/19 03:04: Addendum to ED Course: R femoral central line placed, not an IJ line. 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 JOSÉ MIGUEL, cousin- Flor, reports 2 day hx of generally feeling poorly then today acute confusion associated with mild tremor of LUE and LLE lasting seconds, resolving and no post ictal state. Conscious the entire time, able to walk to the couch during this episode. No slurred speech or notable focal weakness during this event. Sent to ED via EMS. ED documentation reports BS in the 400' s. On admission to ED, tachycardic, tachypnic, hypotensive, and febrile. Pt is confused but conversational although uncertain on details. She does endorse polyuria and polydipsia over the last few days. Denies fever/chills, dysuria, hematuria, flank pain. Cannot remember last chemo dose. ED Course: In ED, was given 1g Vanc, 2g Cefepime, 2g Rocephin, and 2L NS. A IJ central line was placed for possible need for pressors. - Allergies/Adverse Reactions Allergies Allergy/AdvReac Type Severity Reaction Status Date / Time ciprofloxacin [From Cipro] Allergy Severe Anxiety Verified 07/17/19 18:02 gluten Allergy Severe Hives Verified 07/17/19 18:02 - Home Medications Medication Instructions Recorded Confirmed Type Albuterol Sulfate [Ventolin Hfa] 2 puff INH Q4H PRN #1 hfa.aer.ad 08/28/1807/03 Rx Benzonatate [Tessalon] 100 mg PO TIDPRN PRN #90 cap 08/28/18 07/04/19 Rx Citalopram [CeleXA] 10 mg PO HS #30 tab 08/28/18 07/04/19 Rx Cyanocobalamin 1000 MCG/ML VIA 1,000 mcg IM Q28D #3 vial 08/28/18 07/04/19 Rx [Vitamin B-12] Mometasone/Formoterol 200/5 2 puff INH BID-RT #1 aer 08/28/18 07/04/19 Rx [Dulera 200 Mcg/5 Mcg Inhaler] Polyethylene Glycol 3350 [Miralax] 17 gm PO DAILYPRN PRN pk 08/28/18 07/04/19 Rx Ondansetron HCl [Zofran] 8 mg PO Q8HR PRN 04/12/19 07/04/19 History Prochlorperazine Maleate 10 mg PO Q8HR PRN 04/12/19 07/04/19 History [Compazine] Aspirin [Ecotrin Low Strength] 81 mg PO DAILY 30 Days #30 tab 04/14/19 07/04/19 Rx Atorvastatin Calcium [Lipitor] 40 mg PO HS 30 Days #30 tab 04/14/19 07/04/19 Rx Pantoprazole [Protonix] 40 mg PO DAILY 30 Days #30 tab 04/14/19 07/04/19 Rx Levothyroxine Sodium [Synthroid] 50 mcg PO DAILY 06/30/19 07/04/19 History Memantine HCl [Namenda] 10 mg PO BID 06/30/19 07/04/19 History Dexamethasone [Decadron] 4 mg PO QID #56 tab 07/03/19 07/04/19 Rx Dronabinol [Marinol] 2.5 mg PO BID-AC cap 07/06/19 Rx levETIRAcetam [Keppra] 1,000 mg PO BID #120 tab 07/06/19 Rx - History PMH: Stage IV Small cell lung cancer s/p chemo and radiation, Chronic Anemia, COPD, Hypothyroidism, Dysthymia PSH: B/l prophylactic mastectomy, b/l breast implants, Appendectomy, Total hysterectomy, tonsillectomy FHx: Mother- ovarian cancer, Paternal aunt-breast cancer Social: 15pack year smoking hx, quit 1 year ago, denies etoh and drug use. - Review of Systems General: reports: fatigue. denies: fever/chills, weight/appetite/sleep changes , night sweats Eyes: denies: eye pain, vision changes ENT: denies: nasal congestion, rhinorrhea Respiratory: denies: cough, congestion, shortness of breath Cardiovascular: denies: chest pain, palpitation, edema Gastrointestinal: denies: nausea, vomiting, diarrhea, constipation, abdominal pain Genitourinary: reports: polyuria. denies: dysuria Skin: denies: rashes, lesions Musculoskeletal: denies: pain, tenderness Neurological: reports: weakness. denies: numbness, syncope Psychological: reports: anxiety, depression - Vital signs BP 68/55, MAP 59, R28, T101.4, P128, O2sat 100% on 3L - Physical Exam -Constitutional: NAD, sleepy but remains awake during conversation HEENT: PERRLA, EOMI, grossly normal hearing, MMM Neck: supple, no LAD, no JVD Heart: RRR, normal S1/S2, no murmurs/rubs/gallops, pulses present -Heart: trace LE edema Lungs: good air movement -Lungs: occasional wheezing upon anterior auscultation at PURNIMA and RUL. b/l lower jaffe CTAB. Tachypnic, some increased work of breathing. NC in place. Abdomen: soft, non-tender, bowel sounds present Musculoskeletal: normal structure, normal tone Neurological: no focal deficit -Neurological: mild tremulousness throughout Skin: no rash/lesions -Skin: cap refill prolonged, skin tenting present. -Psychiatric: Oriented to person, place and situation, not oriented to time FMR H&P: Results - Labs Result Diagrams: 08/21/19 03:56 08/21/19 03:56 Lab results: WBC 3.5 thou/uL (4.8-10.8) L 08/20/19 16:36 Hgb 13.6 g/dL (12.0-16.0) 08/20/19 16:36 Hct 42.5 % (36.0-47.0) 08/20/19 16:36 MCV 97.1 fL (78.0-98.0) 08/20/19 16:36 Plt Count 166 thou/uL (130-400) 08/20/19 16:36 Neutrophils % 89.2 % (42.0-75.0) H 08/20/19 16:36 Sodium 138 mmol/L (136-145) 08/20/19 16:36 Potassium 4.5 mmol/L (3.5-5.1) 08/20/19 16:36 Chloride 103 mmol/L (98-107) 08/20/19 16:36 Carbon Dioxide 18 mmol/L (23-31) L 08/20/19 16:36 BUN 17 mg/dL (9.8-20.1) 08/20/19 16:36 Creatinine 0.74 mg/dL (0.6-1.1) 08/20/19 16:36 Glucose 343 mg/dL (80-115) H 08/20/19 16:36 Lactic Acid 6.1 mmol/L (0.5-2.2) H* 08/20/19 16:36 Calcium 8.0 mg/dL (7.8-10.44) 08/20/19 16:36 Total Bilirubin 1.2 mg/dL (0.2-1.2) 08/20/19 16:36 AST 107 U/L (5-34) H 08/20/19 16:36 ALT 83 U/L (8-55) H 08/20/19 16:36 Alkaline Phosphatase 278 U/L (40-110) H 08/20/19 16:36 Serum Total Protein 5.6 g/dL (6.0-8.3) L 08/20/19 16:36 Albumin 3.3 g/dL (3.4-4.8) L 08/20/19 16:36 Urine Ketones 10 mg/dL (Negative) A 08/20/19 16:18 Urine Blood Trace (Negative) A 08/20/19 16:18 Urine Nitrite Negative (Negative) 08/20/19 16:18 Ur Leukocyte Esterase 250 Jose/uL (Negative) A 08/20/19 16:18 Urine RBC 0-3 HPF (0-3) 08/20/19 16:18 Urine WBC 21-50 HPF (0-3) A 08/20/19 16:18 Ur Squamous Epith Cells 0-3 HPF (0-3) 08/20/19 16:18 Urine Bacteria 3+ HPF (None Seen) A 08/20/19 16:18 - EKG Interpretation EKG: Sinus tachycardia at rate of 120's, no ST changes. - Radiology Interpretation CT scan - chest Status: image reviewed by me, report reviewed by me Additional comment: No CT evidence of COVID specific findings. R lung mass, suprahilar location and narrowing of proximal RUL bronchus. Chest x-ray Status: image reviewed by me, report reviewed by me Additional comment: Increased opacification of R hilum suggesting progression fo disease. Opacification of LLL- atelectasis vs PNA. FMR H&P: A/P - Problem List (1) Septic shock due to urinary tract infection Current Visit: Yes Status: Acute Code(s): A41.9 - SEPSIS, UNSPECIFIED ORGANISM; R65.21 - SEVERE SEPSIS WITH SEPTIC SHOCK; N39.0 - URINARY TRACT INFECTION, SITE NOT SPECIFIED (2) High anion gap metabolic acidosis Current Visit: Yes Status: Acute Code(s): E87.2 - ACIDOSIS (3) Hyperglycemia Current Visit: Yes Status: Acute Code(s): R73.9 - HYPERGLYCEMIA, UNSPECIFIED (4) Small cell lung cancer Current Visit: Yes Status: Acute Code(s): C34.90 - MALIGNANT NEOPLASM OF UNSP PART OF UNSP BRONCHUS OR LUNG (5) COPD (chronic obstructive pulmonary disease) Current Visit: No Status: Chronic (6) Hypothyroidism Current Visit: No Status: Chronic Code(s): E03.9 - HYPOTHYROIDISM, UNSPECIFIED (7) Small cell carcinoma of right lung Current Visit: No Status: Chronic Code(s): C34.91 - MALIGNANT NEOPLASM OF UNSP PART OF RIGHT BRONCHUS OR LUNG (8) Vasogenic brain edema Current Visit: No Status: Chronic Code(s): G93.6 - CEREBRAL EDEMA (9) Seizure disorder Current Visit: Yes Status: Chronic Code(s): G40.909 - EPILEPSY, UNSP, NOT INTRACTABLE, WITHOUT STATUS EPILEPTICUS (10) Dysthymia Current Visit: No Status: Chronic Code(s): F34.1 - DYSTHYMIC DISORDER - Plan Septic Shock 2/2 UTI: -T 101, tachypnea, tachycardia, and hypotension as low as 54/38 s/p R femoral central line and BP improved with Levophed. -s/p 2L NS, still appearing dry on exam, will give 1 more L then reassess -s/p Vanc, Rocephin, and Cefepime in ED. UA likely source, but will continue broad spectrum Abx- Vanc and Cefepime, for this time with immunocompromised status until blood cx result. -blood and urine cx pending. -UTI on last admission- E.coli pansensitive. COVID PUI: -CXR with possible LLL PNA vs atelectasis but not suspicious for PNA on CT -CT without specific signs for COVID -Covid test collected in ED 08/19 -D-dimer, CRP, ESR, Ferritin pending. Anion Gap Metabolic Acidosis: -Lactic Acid 6.1, repeat improved -ketonuria and hyperglycemia without dx of DM but on daily steroid use -A1c Pending -betahydroxybutrate pending -s/p 2L IVF, will give 1 more L since still appears dry on exam. -SSI vs insulin drip pending above labs -ABG pending -repeat BMP pending Hx of Seizure / Mass Effect: -Keppra 1000mg BID -tremulousness described by MPOA doesn't sound consistent with seizure, however will get Keppra level and place pt on seizure precautions. -continue home dose of Dexamethasone. COPD: -home inhalers. Does not appear to be in exacerbation. Hypothyroidism: -Last TSH 07/27 15.3, dose lowered to 50mcg -repeat TSH Stage IV Small Cell Lung Cancer on Palliative Chemo: -continue home steroids for brain mets and mass effect -consult palliative care -consult Onc-[facility] in AM Dispo: Stable DVT PPx: Lovenox GI PPx: Pepcid Case was discussed with Dr. Armstrong, attending physician. FMR H&P: Upper Level - Plan Date/Time: 08/20/19 8396 Addendum - Attending - Attending Attestation Date/Time: 08/21/19 3091 I personally evaluated the patient and discussed the management with Dr. James last night. I agree with the History, Examination, Assessment and Plan documented above with any addition or exceptions noted below.
[2019-08-20] MEDS ORDERED: Norepinephrine 8 MG/0.9% NS 250 ML ONE (19:14)
[2019-08-20 19:45] LABS: Lactic Acid 2.9 mmol/L (0.5-2.2)
[2019-08-20] MEDS ORDERED: Acetaminophen 500 MG TAB ONE (20:36)
[2019-08-20] MEDS ORDERED: Ondansetron PF 4 MG/2 ML Vial IVP PRN ×2 (20:52→21:17)
[2019-08-20] MEDS ORDERED: Acetaminophen 325 MG TAB PO PRN ×2 (20:52→21:17)
[2019-08-20] MEDS ORDERED: Sodium Chloride 0.9% 1,000 ML IV SCH ×2 (20:52→21:30)
[2019-08-20] MEDS ORDERED: Ondansetron ODT 4 MG TAB SL PRN (20:52)
[2019-08-20] MEDS ORDERED: Bisacodyl 10 MG SUPP PR PRN (21:17)
[2019-08-20] MEDS ORDERED: Bisacodyl 5 MG TAB PO PRN (21:17)
[2019-08-20] MEDS ORDERED: Ondansetron ODT 4 MG TAB PO PRN (21:17)
[2019-08-20] MEDS ORDERED: Acetaminophen 650 MG Suppository PR PRN (21:17)
[2019-08-20] MEDS ORDERED: Senokot S 8.6-50 MG TAB PO PRN (21:17)
[2019-08-20] MEDS ORDERED: Non-Formulary Item 1 EACH (Albuterol Sulfate 2 PUFF) INH PRN (21:17)
[2019-08-20] MEDS ORDERED: Dextrose 50% Abboject 50 ML SYRINGE SLOW IVP PRN (21:17)
[2019-08-20] MEDS ORDERED: Dextrose 5% in Water 1,000 ML IV PRN (21:17)
[2019-08-20] MEDS ORDERED: Prochlorperazine Maleate 5 MG TAB PO PRN (21:17)
[2019-08-20 21:25] VITALS: BMI 24.1
[2019-08-20] MEDS ORDERED: Famotidine 20 MG TAB PO SCH (21:30)
[2019-08-20] MEDS ORDERED: levETIRAcetam 500 MG TAB PO SCH (21:30)
[2019-08-20] MEDS ORDERED: Albuterol 200 PUFF (6.7GM INHALER) INH PRN (21:34)
[2019-08-20 21:37] LABS: Actual Bicarbonate (HCO3a) 19.3 mEq/L (22-28); Base Excess (BEa) -3.9 mEq/L (-2.0 to +3.0); CO2 Tension 29.4 mmHg (35.0-45.0); Carboxyhemoglobin (COHb) 0.8 gm% (0.0-3.0); Hemoglobin (Hb) 12.4 g/dL (12.0-16.0); O2 Tension (PaO2) 76.9 mmHg (> 70.0); Potassium - ABG Lab 3.12 mmol/L (3.70-5.30); pH, Arterial 7.43 (7.35-7.45)
[2019-08-20 21:38] LABS: Puncture Site RR
[2019-08-20] MEDS ORDERED: Vancomycin 1.5 GRAM/300 ML BAG 1.5 GM in Premix Bag 1 BAG IVPB SCH (21:45)
--- NOTE | 2019-08-20 21:50 | PDOC.BPN ---
- Brief Progress Note Date/Time: 08/20/193 I personally evaluated the patient and discussed the management with Dr. James at time of admission. H&P pending. I agree with the History, Examination, Assessment and Plan documented as discussed. Severe sepsis form presuptive UTI. Antibiotics, fluids, adn pressors initated. Complicated by stage 4 lung CA and steroid induced Diabetes mellitus. Metabolic gap noted. ABG pending. Insulin ordered. Continue IV fluid resuscitation. Patient does not have cognitive capacity for medical decisions. Flor Guerrero, her cousin, is her caregiver and MPOA per Pt and Flor. We confirmed DNAR status with Flor based on stage 4 lung CA poor prognosis.
[2019-08-20] MEDS ORDERED: Vancomycin HCl 1.5 GM in Sodium Chloride 0.9% 250 ML 300 ML IVPB SCH (22:00)
[2019-08-20] MEDS ORDERED: Potassium Chloride 20 MEQ TAB PO SCH (22:15)
[2019-08-20] MEDS ORDERED: Norepinephrine 8 MG/0.9% NS 250 ML IVPB SCH (22:30)
[2019-08-20 22:38] LABS: Anion Gap 15 mmol/L (10-20); BUN (Urea Nitrogen) 16 mg/dL (9.8-20.1); Calc. Creatinine Clearance 80 mL/min (70-130); Calcium 8.1 mg/dL (7.8-10.44); Carbon Dioxide 19 mmol/L (23-31); Chloride 103 mmol/L (98-107); Estimated GFR-MDRD 83; Glucose 305 mg/dL (80-115); Potassium 3.3 mmol/L (3.5-5.1); Sodium 134 mmol/L (136-145)
[2019-08-20] MEDS ORDERED: Dexamethasone 1 MG TAB PO SCH (22:45)
[2019-08-20 22:58] LABS: Ferritin 373.44 ng/mL (10-291); Thyroid Stimulating Hormone 8.4844 uIU/mL (0.35-4.94)
[2019-08-20] MEDS: Lactated Ringer's 1,000 ML IV SCH (23:46)
[2019-08-20] MEDS: Cefepime 2 GM in Sodium Chloride 0.9% 100 ML IVPB SCH (23:47)
[2019-08-20] MEDS: HumaLOG 300 UNITS/3 ML VIAL SC PRN (23:48)
[2019-08-21 04:39] LABS: Hemoglobin A1c 11.3 % (4.0-6.0)
[2019-08-21 05:01] LABS: ALT (SGPT) 86 U/L (8-55); AST (SGOT) 65 U/L (5-34); Alkaline Phosphatase 249 U/L (40-110); Anion Gap 13 mmol/L (10-20); BUN (Urea Nitrogen) 12 mg/dL (9.8-20.1); Bilirubin, Total 0.8 mg/dL (0.2-1.2); Calc. Creatinine Clearance 90 mL/min (70-130); Carbon Dioxide 21 mmol/L (23-31); Chloride 110 mmol/L (98-107); Estimated GFR-MDRD Greater than 90; Globulin 2.3 g/dL (2.4-3.5); Glucose 226 mg/dL (80-115); Potassium 3.7 mmol/L (3.5-5.1); Protein, Total 5.3 g/dL (6.0-8.3); Sodium 140 mmol/L (136-145)
[2019-08-21] MEDS: HumaLOG 300 UNITS/3 ML VIAL SC PRN ×4 (06:00→20:27)
[2019-08-21] MEDS: Levothyroxine Sodium 50 MCG TAB PO SCH (06:00)
[2019-08-21 06:24] LABS: #Lymphocytes 0.7 thou/uL (1.20-3.40); #Monocytes 0.7 thou/uL (0.11-0.59); #Neutrophils 12.2 thou/uL (1.40-6.50); %Eosinophils 0.2 % (0.0-10.0); %Lymphocytes 4.8 % (21.0-51.0); %Neutrophils 89.9 % (42.0-75.0); Hemoglobin 12.3 g/dL (12.0-16.0); Mean Corpuscular HGB CONC 32.5 g/dL (32.0-36.0); Mean Corpuscular Hemoglobin 30.9 pg (27.0-31.0); Mean Platelet Volume 7.2 fL (7.4-10.4); Platelet Count 160 thou/uL (130-400); RBC Distribution Width 14.3 % (11.5-14.5); Red Blood Cell (RBC) Count 3.98 mill/uL (4.20-5.40); White Blood Cell (WBC) Count 13.6 thou/uL (4.8-10.8)
[2019-08-21 06:54] LABS: Free T4 (Free Thyroxine) 0.89 ng/dL (0.70-1.48)
--- NOTE | 2019-08-21 07:14 | PDOC.FM ---
- Subjective Subjective: Doing well today. Awake, alert, no abd pain, feels much improved. No tremors. - Objective MAR Reviewed: Yes Vital Signs & Weight: Vital Signs (12 hours) Temp Pulse Resp Pulse Ox 08/21/19 04:00 98.1 F 08/21/19 00:00 98.9 F 08/20/19 22:16 97 08/20/19 22:00 101.2 F H 08/20/19 20:50 101.2 F H 130 H 20 100 Weight Weight 67.8 kg Most Recent Monitor Data Heart Rate from ECG 86 NIBP 112/63 NIBP BP-Mean 79 Respiration from ECG 18 SpO2 100 I&O: 08/20/19 08/21/19 08/22/19 06:59 06:59 06:59 Intake Total 2020 Output Total 1300 Balance 721 Result Diagrams: 08/21/19 03:56 08/21/19 03:56 Phys Exam - Physical Examination Constitutional: NAD HEENT: moist MMs Neck: full ROM no respiratory distress Gastrointestinal: soft, non-tender Neurological: non-focal, moves all 4 limbs Psychiatric: normal affect, A&O x 3 Dx/Plan (1) High anion gap metabolic acidosis Code(s): E87.2 - ACIDOSIS Status: Acute (2) Hyperglycemia Code(s): R73.9 - HYPERGLYCEMIA, UNSPECIFIED Status: Acute (3) Septic shock due to urinary tract infection Code(s): A41.9 - SEPSIS, UNSPECIFIED ORGANISM; R65.21 - SEVERE SEPSIS WITH SEPTIC SHOCK; N39.0 - URINARY TRACT INFECTION, SITE NOT SPECIFIED Status: Acute (4) Transaminitis Code(s): R74.0 - NONSPEC ELEV OF LEVELS OF TRANSAMNS & LACTIC ACID DEHYDRGNSE Status: Acute (5) Brain metastasis Code(s): C79.31 - SECONDARY MALIGNANT NEOPLASM OF BRAIN Status: Chronic (6) Hypothyroidism Code(s): E03.9 - HYPOTHYROIDISM, UNSPECIFIED Status: Chronic (7) Small cell carcinoma of right lung Code(s): C34.91 - MALIGNANT NEOPLASM OF UNSP PART OF RIGHT BRONCHUS OR LUNG Status: Chronic - Plan Plan: Septic Shock 2/2 UTI: -T 101, tachypnea, tachycardia, and hypotension as low as 54/38 s/p R femoral central line and BP improved with Levophed. -Will continue vanc & cefepime, pending Bcx & Ucx -Pansensitive E.coli on last admission one month ago -R fem line with Levophed. 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 COPD: -home inhalers. Does not appear to be in exacerbation. Hypothyroidism: -TSH 8, T4 0.89 -Subclinical hypothyroidism, not likely explanation of weakness, however if pt clinically unimproved with tighter glucose control, can consider increasing synthroid dosing. Will observe for now. Stage IV Small Cell Lung Cancer on Palliative Chemo: -continue home steroids for brain mets and mass effect -consult palliative care -consult Onc-[facility] in AM, discuss stress dosing steroids Dispo: Stable, intermodal truck driver prognosis guarded. If BPs stable this AM, will transition out of ICU DVT PPx: Lovenox GI PPx: Pepcid Lines: Right femoral line Abx: Vanc/Cefepime (08/19) Fluid: SL Diet: ADA, ADT Pressors: Off of levophed Disucssed with Dr. Ha Addendum - Attending - Attending Attestation Date/Time: 08/21/19 7888 I personally evaluated the patient and discussed the management with Dr. Rhodes. I agree with the History, Examination, Assessment and Plan documented above with any addition or exceptions noted below. Patient improved. Low suspicion for COVID. She has UTI and likely septic shock from that and hypovolemia from uncontrolled DM induced by steroids. Continue IV fluids, she is now off pressors. Continue abx, likely E. coli and can d/c vanc once cultures result. Monitor BP but hopefully can get out of CCU later today.
[2019-08-21] MEDS: Dronabinol 2.5 MG CAP PO SCH ×2 (08:12→16:48)
[2019-08-21] MEDS: Dexamethasone 1 MG TAB PO SCH ×2 (08:12→16:48)
[2019-08-21] MEDS: Mometasone 200 MCG/Formoterol 5 MCG 120 PUFF INHALER INH SCH ×2 (08:12→18:53)
[2019-08-21 08:50] LABS: Lactic Acid 1.5 mmol/L (0.5-2.2)
[2019-08-21] MEDS ORDERED: Famotidine 20 MG TAB PO SCH (09:00)
[2019-08-21] MEDS: Enoxaparin Sodium 40 MG/0.4 ML SYRINGE SC SCH (09:01)
[2019-08-21] MEDS: Cefepime 2 GM in Sodium Chloride 0.9% 100 ML IVPB SCH ×2 (09:01→21:01)
[2019-08-21] MEDS: levETIRAcetam 500 MG TAB PO SCH ×2 (09:02→20:25)
[2019-08-21] MEDS: Lactated Ringer's 1,000 ML IV SCH (09:03)
[2019-08-21 09:15] LABS: HBCM Index 0.06 S/CO (0-0.79); HBSAg Index 0.17 S/CO (0-0.99); Hep A IgM AB Non-Reactive (NonReactive); Hep A IgM S/CO 0.11 S/CO (0-0.79); Hep B Surf Ag Non-Reactive S/CO (NonReactive); Hep C IgG Ab Non-Reactive (NonReactive); Hep C Index 0.07 S/CO (0-0.79); Hepatitis B Core IgM Abs Non-Reactive (NonReactive)
[2019-08-21] MEDS ORDERED: Vancomycin HCl 1.25 GM in Sodium Chloride 0.9% 250 ML 250 ML IVPB SCH ×2 (10:00→21:00)
[2019-08-21] MEDS ORDERED: Lactated Ringer's 500 ML IV SCH (10:15)
--- NOTE | 2019-08-21 19:45 | CON ---
DATE OF CONSULTATION: 08/21/2019 HISTORY OF PRESENT ILLNESS: Ms. Burnett is a 68-year-old female with stage IV lung cancer, who is a do not resuscitate patient. She presented with altered mental status. She subsequently has been admitted to the critical care unit with a diagnosis of rule out COVID-19. CT of her chest shows a narrowing of right upper lobe bronchus and right lung mass with suprahilar. PAST MEDICAL HISTORY: Remarkable for: 1. COPD. 2. Hypothyroidism. 3. History of bilateral mastectomies with implants. 4. History of appendectomy. 5. Status post hysterectomy. 6. Tonsillectomy. FAMILY HISTORY: Positive for cancer. SOCIAL HISTORY: She has smoked for 15 years. She is not a daily drinker. REVIEW OF SYSTEMS: Not accurately obtainable. PHYSICAL EXAMINATION: VITAL SIGNS: Blood pressure 118/73, heart rate in the 70s, she has been afebrile, and respiratory rates in the teens. HEAD AND NECK: Unremarkable. LUNGS: Remarkable for equal breath sounds. HEART: Regular rhythm. ABDOMEN: Soft. EXTREMITIES: Without asymmetry. IMPRESSION: 1. Stage IV small-cell lung cancer. 2. Diabetes. 3. Encephalopathy. 4. Urinary tract infection. 5. Brain metastases. PLAN: She appears to have radiographic progression of her tumor on the right. I suspect her COVID-19 test to be negative. We will continue to follow with the other physicians caring for. I would be appropriate to focus more on comfort. This is a 70 min consult with 50% of time spent on unit with coordination of care. Job ID: [id number] MTDD
[2019-08-21] MEDS: Citalopram 10 MG TAB PO SCH (20:24)
[2019-08-21] MEDS: Atorvastatin Calcium 40 MG TAB PO SCH (20:24)
[2019-08-21] MEDS ORDERED: Insulin Glargine 15 UNITS in Pre-Filled Syringe 1 EACH SC SCH (21:00)
[2019-08-22] MEDS: Levothyroxine Sodium 50 MCG TAB PO SCH (05:53)
[2019-08-22] MEDS: Cefepime 2 GM in Sodium Chloride 0.9% 100 ML IVPB SCH ×3 (05:53→21:00)
[2019-08-22] MEDS: HumaLOG 300 UNITS/3 ML VIAL SC PRN ×4 (05:56→20:58)
--- NOTE | 2019-08-22 06:08 | PDOC.FM ---
- Subjective Subjective: NAEO. Feels well, eating well. No questions or concerns Talked with cousin yesterday about long acting insulin, to continue this in light of diabetes Denies abd pain, fever, chills - Objective MAR Reviewed: Yes Vital Signs & Weight: Vital Signs (12 hours) Temp Pulse Resp Pulse Ox 08/22/19 04:00 97.7 F 08/22/19 00:00 97.3 F L 08/21/19 20:00 97.5 F L 08/21/19 19:38 99 08/21/19 18:53 73 16 100 Weight Admit Weight 67.585 kg Weight 67.8 kg Most Recent Monitor Data Heart Rate from ECG 61 NIBP 125/75 NIBP BP-Mean 91 Respiration from ECG 21 SpO2 100 I&O: 08/20/19 08/21/19 08/22/19 06:59 06:59 06:59 Intake Total 2020 600 Output Total 1300 1352 Balance 721 -752 Result Diagrams: 08/22/19 06:16 08/22/19 06:16 Phys Exam - Physical Examination Constitutional: NAD HEENT: moist MMs no respiratory distress Cardiovascular: RRR, no significant murmur Gastrointestinal: soft, non-tender, positive bowel sounds Musculoskeletal: no edema Neurological: non-focal Psychiatric: normal affect, A&O x 3 Dx/Plan (1) High anion gap metabolic acidosis Code(s): E87.2 - ACIDOSIS Status: Acute (2) Hyperglycemia Code(s): R73.9 - HYPERGLYCEMIA, UNSPECIFIED Status: Acute (3) Septic shock due to urinary tract infection Code(s): A41.9 - SEPSIS, UNSPECIFIED ORGANISM; R65.21 - SEVERE SEPSIS WITH SEPTIC SHOCK; N39.0 - URINARY TRACT INFECTION, SITE NOT SPECIFIED Status: Acute (4) Transaminitis Code(s): R74.0 - NONSPEC ELEV OF LEVELS OF TRANSAMNS & LACTIC ACID DEHYDRGNSE Status: Acute (5) Brain metastasis Code(s): C79.31 - SECONDARY MALIGNANT NEOPLASM OF BRAIN Status: Chronic (6) Hypothyroidism Code(s): E03.9 - HYPOTHYROIDISM, UNSPECIFIED Status: Chronic (7) Small cell carcinoma of right lung Code(s): C34.91 - MALIGNANT NEOPLASM OF UNSP PART OF RIGHT BRONCHUS OR LUNG Status: Chronic - Plan Plan: Septic Shock 2/2 UTI: -T 101, tachypnea, tachycardia, and hypotension as low as 54/38 s/p R femoral central line and BP improved with Levophed. -UCx with pansensitive E.Coli, BPs gram negative rods, most likely E.coli- continue cefepime pending sensitivities -Initial requirement of levophed to maintain MAPs but now has been maintaining BPs for several hours -Transition out of ICU to floor -Transition to PO abx once sensitivities result E. Coli bacteremia: -from UTI vs. cholecystitis -Continue cefepime pending S/S Transamnitis 2/2 acute cholecystitis -Hepatitis labs negative -trending down but RUQ U/S showing acute cholecystitis but cannot rule out abscess or ascending cholangitis on admission COVID PUI-> negative -CXR with possible LLL PNA vs atelectasis but not suspicious for PNA on CT -CT without specific signs for COVID -Covid test collected in ED 08/19 -Ddimer, ferritin, LDH all elevated however could be due to disease process of UTI and cancer -Low clinical suspicion for COVID -Wean O2 as tolerated New onset DM2 -Lactic Acid 6.1 > 2.9 -A1c 11% -Lantus started, SS -CM, DM education Hx of Seizure 2/2 Mass Effect: -Keppra 1000mg BID -tremulousness described by MPOA doesn't sound consistent with seizure, also Keppra level therapeutic -continue home dose of Dexamethasone. COPD: -home inhalers. Does not appear to be in exacerbation. Hypothyroidism: -TSH 8, T4 0.89 -Subclinical hypothyroidism, not likely explanation of weakness, however if pt clinically unimproved with tighter glucose control, can consider increasing synthroid dosing. Will observe for now. Stage IV Small Cell Lung Cancer on Palliative Chemo: -continue home steroids for brain mets and mass effect -consult palliative care -notified Dr. Chahal 08/21: -Continue cefepime pending BCx S/S -Inc Lantus from 15 to 20units qhs, sliding scale. CM. DM2 education -Palliative on board -Consult gen surg, recs appreciated -Transfer to floor Dispo: Stable, ferry terminal agent prognosis guarded DVT PPx: Lovenox GI PPx: Pepcid Lines: Right femoral line Abx: Cefepime (08/19) Fluid: SL Diet: ADA, ADAT Pressors: Off of levophed Disucssed with Dr. Ha Addendum - Attending - Attending Attestation Date/Time: 08/22/19 1310 I personally evaluated the patient and discussed the management with Dr. Rhodes. I agree with the History, Examination, Assessment and Plan documented above with any addition or exceptions noted below. Patient improved. Continue treatment for E coli bacteremia and UTI. Labs improving.
[2019-08-22] MEDS ORDERED: Insulin Glargine 20 UNITS in Pre-Filled Syringe 1 EACH SC SCH (06:13)
[2019-08-22 06:23] LABS: #Lymphocytes 0.7 thou/uL (1.20-3.40); #Monocytes 0.5 thou/uL (0.11-0.59); %Basophils 0.3 % (0.0-1.0); %Eosinophils 0.1 % (0.0-10.0); %Lymphocytes 8.7 % (21.0-51.0); %Monocytes 5.6 % (0.0-10.0); %Neutrophils 85.3 % (42.0-75.0); Hemoglobin 12.3 g/dL (12.0-16.0); Mean Corpuscular HGB CONC 32.7 g/dL (32.0-36.0); Mean Corpuscular Hemoglobin 31.1 pg (27.0-31.0); Mean Corpuscular Volume 95.1 fL (78.0-98.0); Mean Platelet Volume 7.3 fL (7.4-10.4); Platelet Count 137 thou/uL (130-400); RBC Distribution Width 14.3 % (11.5-14.5); Red Blood Cell (RBC) Count 3.95 mill/uL (4.20-5.40); White Blood Cell (WBC) Count 8.2 thou/uL (4.8-10.8)
[2019-08-22 06:45] LABS: ALT (SGPT) 69 U/L (8-55); AST (SGOT) 29 U/L (5-34); Albumin 2.9 g/dL (3.4-4.8); Alkaline Phosphatase 201 U/L (40-110); Anion Gap 11 mmol/L (10-20); BUN (Urea Nitrogen) 10 mg/dL (9.8-20.1); Bilirubin, Total 0.4 mg/dL (0.2-1.2); Calc. Creatinine Clearance 100 mL/min (70-130); Calcium 8.6 mg/dL (7.8-10.44); Carbon Dioxide 22 mmol/L (23-31); Chloride 104 mmol/L (98-107); Estimated GFR-MDRD Greater than 90; Globulin 2.6 g/dL (2.4-3.5); Glucose 216 mg/dL (80-115); Potassium 3.7 mmol/L (3.5-5.1); Protein, Total 5.5 g/dL (6.0-8.3); Sodium 133 mmol/L (136-145)
--- NOTE | 2019-08-22 07:05 | ULT ---
RIGHT UPPER QUADRANT ULTRASOUND: INDICATION: History of right upper quadrant pain. FINDINGS: There are gallstones with gallbladder sludge. There is gallbladder wall thickness. There is a promi nent heterogeneous pericholecystic fluid collection which may reflect a contained perforation. This is partially imaged on the CT of the thorax dated 08/20/2019. There is a positive sonographic Roth' s sign. Appropriate flow is seen within the portal vein. The common bile duct measured 4.3 mm which is normal. The right kidney measured 11.2 x 4.3 x 4.9 cm. There is slight prominence of the right kidney, some of which may be related to an extrarenal pelvis that is better detailed on the CT of the chest, abdomen, and pelvis dated 04/11/2019. Visualized aspects of the liver and pancreas are withi n normal limits. IMPRESSION: Findings suspicious for acute calculus cholecystitis. There is a prominent heterogeneous pericholecy stic fluid collection seen along the superior margin of the gallbladder body possibly related to a sm all contained perforation. Small pericholecystic abscess is not excluded. General surgical consulta tion is recommended. POS: WENDY
[2019-08-22] MEDS: Mometasone 200 MCG/Formoterol 5 MCG 120 PUFF INHALER INH SCH ×2 (07:27→18:43)
[2019-08-22] MEDS: Dexamethasone 1 MG TAB PO SCH ×2 (07:56→17:04)
[2019-08-22] MEDS: Dronabinol 2.5 MG CAP PO SCH ×2 (07:56→17:01)
--- NOTE | 2019-08-22 08:05 | PRG ---
DATE OF SERVICE: 08/22/2019 SUBJECTIVE: Ms. Vicente has no complaints. She denies abdominal pain. OBJECTIVE: VITAL SIGNS: Oximetry is 100% on room air, blood pressure 128/87, heart rate 60s, respiratory rates in the teens. LUNGS: Clear. HEART: Regular rhythm. ABDOMEN: Soft and nontender. EXTREMITIES: Without edema. LABORATORY DATA: White count is 8.2, hemoglobin 12.3, and platelets 137. Sodium 133, potassium 3.7, chloride 104, bicarb 22, BUN 10, and creatinine 0.56. Abdominal ultrasound was done last night. Gallstones were seen. Gallbladder sludge was seen. Gallbladder wall thickness was noted, but there was a question of a possible contained perforation on the ultrasound. She currently has no symptoms in the right upper quadrant. General Surgery will be consulted. IMPRESSION: 1. Lung cancer. 2. Gallbladder thickening, to be evaluated by Surgery. 3. Diabetes. 4. Chronic obstructive pulmonary disease, this is not a clinical issue at this point in time. She is growing E coli from the urine and probably E coli from both blood cultures, making her clinical presentation more consistent with urinary tract infection. We will await Surgery input. Job ID: [id number]
[2019-08-22] MEDS: levETIRAcetam 500 MG TAB PO SCH ×2 (08:32→20:57)
[2019-08-22] MEDS: Enoxaparin Sodium 40 MG/0.4 ML SYRINGE SC SCH (08:32)
[2019-08-22 09:17] LABS: Vancomycin, Trough 7.1 ug/mL
--- NOTE | 2019-08-22 13:32 | PDOC.BPN ---
- Brief Progress Note Reviewed RUQ US which shows GB perforation and 2.3cm GB stone. Discussed with General Surgery and with patient who agrees to surgery since perforation had led to abscess or fluid collection but with large perforation present could lead to recurrent bacteremia. Will defer to general surgery for further recommendations.
--- NOTE | 2019-08-22 14:38 | PDOC.PALCO ---
Palliative Care Consult - Consult Details Requesting Physician: Dr James Reason for Consult: goals of care - Pertinent HPI 68 year old female who is familiar to the Palliative Care Team. She resides at a private home with her cousin who is JOSÉ MIGUEL. 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 As per cousin she had an increase in confusion and weakness that progressed over two days, no relieving factors. Confusion increased 08/19 and an onset of associated mild tremor of left extremities occurred and EMS was called and Ms Burnett transported to [facility] emergency room for further evaluation. Negative for fever, chills, dysuria, hematuria, but positive for polyuria. Admitted for septic shock related to UTI, hyperglycemia, and seizure believed to be related to metastatic cancer. - Social History Smoking Status: Former smoker Smoking: cigarettes Alcohol Use: none Drug Use History: none Living Situation: independent, other (lives with her cousin who is JOSÉ MIGUEL) - Medications MAR Reviewed: Yes - Allergies Allergies/Adverse Reactions: Allergies Allergy/AdvReac Type Severity Reaction Status Date / Time ciprofloxacin [From Cipro] Allergy Severe Anxiety Verified 07/17/19 18:02 gluten Allergy Severe Hives Verified 07/17/19 18:02 - Subjective Awake, alert, mild confusion, weakness. - ROS Constitutional: alert, weakness ENT: other (denies sore throat, difficulity swallwoing,) Respiratory: shortness of breath Cardiology: other (negative for chest pain, discomfort) Gastrointestinal: other (denies abdominal pain) Skin: other Psychological: other (denies depression/anxiety) - Objective Vital Signs: Vital Signs - Most Recent Temp Pulse Resp BP Pulse Ox 97.9 F 66 18 115/56 L 93 L 08/22/19 11:07 08/22/19 11:07 08/22/19 11:07 08/22/19 11:07 08/22/19 11:07 Palliative Performance Scale: 40 - Advance Directives Medical Power of Compressor Battery Pellets: Flor Love cousin - Physical Exam Constitutional: cachectic, ill appearing HEENT: EOMI, moist MMs, sclera anicteric Respiratory: no wheezing Cardiovascular: RRR Genitourinary: continent Musculoskeletal: no clubbing, no edema Neurology: moves all 4 limbs, no focal deficits Skin: cap refill <2 seconds Psychiatric: A&O x 3 (mild confusion with in specifics of history) - Problem List (1) Septic shock due to urinary tract infection Code(s): A41.9 - SEPSIS, UNSPECIFIED ORGANISM; R65.21 - SEVERE SEPSIS WITH SEPTIC SHOCK; N39.0 - URINARY TRACT INFECTION, SITE NOT SPECIFIED Current Visit: Yes Status: Acute (2) Small cell lung cancer Code(s): C34.90 - MALIGNANT NEOPLASM OF UNSP PART OF UNSP BRONCHUS OR LUNG Current Visit: Yes Status: Acute (3) Palliative care encounter Code(s): Z51.5 - ENCOUNTER FOR PALLIATIVE CARE Current Visit: No Status: Acute (4) Physical deconditioning Code(s): R53.81 - OTHER MALAISE Current Visit: No Status: Acute (5) Brain metastasis Code(s): C79.31 - SECONDARY MALIGNANT NEOPLASM OF BRAIN Current Visit: No Status: Chronic - Plan/Recommendations Plan: Mrs Burnett has continued with palliative therapy for cancer. Flor spoke with Rosa Naylor RNretread mold operator and communicated that Ms Burnett has declined recently and that the plan was to eventually transition to hospice. Flor relayed that this may be a consideration at this time. Ms Burnett is hopeful to transition to Oncology from CCU offered therapeutic listening and emotional support. Rosa Naylor RN communicated to Dr Rhodes. Palliative will continue to support Ms Burnett and assist in communication with MPOA secondary to intermittent confusion of patient. Please refer to Rosa Naylor RNretread mold operator Notes in Note section [50] minutes spent on this encounter with >50% of the time in counseling and coordination of care. Thank you for this very appropriate consult.
--- NOTE | 2019-08-22 14:51 | CON ---
DATE OF CONSULTATION: 08/22/2019 REQUESTING PHYSICIAN: Clarisse Rhodes MD HISTORY OF PRESENT ILLNESS: This is a 68-year-old woman with history of stage IV small-cell carcinoma of the lung with brain metastasis. The patient presented 2 days ago with malaise and fever. Remotely has had right upper quadrant abdominal pain, which has currently resolved. Workup on admission revealed E coli bacteremia. A urinalysis was also obtained, which cultures positive for E coli as well. She has been on IV antibiotics. Laboratory studies obtained in this hospitalization include a metabolic profile with elevated LFTs. Abdominal ultrasound was obtained, which revealed abnormal gallbladder, for which I was asked to evaluate the patient. At the time of my evaluation, the patient is awake and alert. On video conference with the power of trade mark attorney, her name is Suhail, and this visit occurred in the presence of the patient's nurse as well as the consulting physician, Dr. Clarisse Rhodes. PAST MEDICAL HISTORY: Significant for metastatic small-cell lung carcinoma with brain metastasis. Other pertinent medical history includes: 1. COPD. 2. Chronic anemia. 3. Hypothyroidism. 4. Urinary tract infection. PAST SURGICAL HISTORY: Pertinent for: 1. Total abdominal hysterectomy. 2. Appendectomy. 3. Bilateral prophylactic mastectomies. 4. Bilateral breast implantations. FAMILY HISTORY: Noncontributory for this patient's age. SOCIAL HISTORY: The patient had over a [id number] cigarette smoking history and has not smoked over the last 1 year. She denies any ethanol or illicit drug abuse. CURRENT MEDICATIONS: Include: 1. Acetaminophen 650 mg p.o. q.4 h. p.r.n. 2. Albuterol sulfate two puffs q.4 h. p.r.n. 3. Atorvastatin 40 mg p.o. nightly. 4. Cefepime 2 g IV q.8 h. 5. Citalopram 10 mg p.o. nightly. 6. Dexamethasone 3 mg p.o. b.i.d. 7. Enoxaparin 40 mg subcutaneously daily. 8. Keppra 1000 mg p.o. b.i.d. 9. Namenda 10 mg p.o. b.i.d. 10. Pantoprazole 40 mg p.o. daily. 11. Sliding scale insulin. ALLERGIES: TO CIPROFLOXACIN. REVIEW OF SYSTEMS: Ten-point review of systems essentially unremarkable except as stated in past medical history and chief complaint. PHYSICAL EXAMINATION: GENERAL: A 68-year-old normally developed woman who is otherwise coherent and interactive, appears stated age. The patient is alert and oriented x3. She appears to be in no acute distress at the time of my evaluation. VITAL SIGNS: Today include blood pressure 115/56, pulse 66, respiratory rate is 18, temperature 97.9 degrees Fahrenheit, and oxygen saturation is 93% on room air. HEENT: Pupils equally round and reactive to light and accommodation. She has no scleral icterus present. HEART: Regular rate and rhythm. LUNGS: Scattered rhonchi. Breathing regular and nonlabored. ABDOMEN: Soft, nontender, and nondistended. Liver and spleen nonpalpable below costal margin. NEUROLOGIC: No focal deficits present. LABORATORY FINDINGS: Today include a CBC with 8200 white blood cells, hemoglobin and hematocrit are 12.3 and 37.5 respectively, and platelet count is 137,000. COVID-19 PCR test was negative. PTT and INR are normal at 23.7 seconds and 1.0 respectively. Metabolic profile: Sodium 133, potassium 3.7, chloride is 104, bicarb is 22, BUN 10, creatinine 0.56, glucose 216, total bilirubin is 0.4, AST and ALT 29 and 69 respectively, and alkaline phosphatase is 201. Procalcitonin remains elevated at 4.18 today. Abdominal ultrasound reveals large solitary gallstone within the gallbladder lumen. There is gallbladder wall thickening and pericholecystic fluid. There is also evidence of perforation of the mid gallbladder wall and contained fluid collection in the adjacent gallbladder fossa. IMPRESSIONS: 1. Acute cholecystitis with cholelithiasis and possible gallbladder wall perforation and contained fluid collection. 2. Recent Escherichia coli bacteremia, likely secondary to gangrenous cholecystitis with perforation as well as concomitant Escherichia coli urinary tract infection. 3. History of stage IV metastatic small-cell carcinoma of the lung with brain metastasis. 4. Acute hyperglycemia. RECOMMENDATIONS: Laparoscopic cholecystectomy as I suspect that this is likely a gangrenous gallbladder, which may be responsible for recent septicemia. I am fully aware of the patient's comorbidities. However, I do not think that antibiotic therapy alone will be enough to resolve a gangrenous cholecystitis with perforation. Above findings and recommendations have been discussed with the patient, her power of trade mark attorney by video conference in the presence of her nurse, and the consulting physician. The patient and her power of trade mark attorney have indicated understanding information given. I did inform the patient of the risks and benefits of proposed surgery to include, but not limited to bleeding, infection, injury to bile duct or surrounding structures. The patient indicates understanding information given, and she and her [id number] wish to proceed with the laparoscopic cholecystectomy. Thank you again, Dr. Rhodes, for allowing me the opportunity to participate in the care of this patient. Job ID: [id number]
[2019-08-22] MEDS: Citalopram 10 MG TAB PO SCH (20:57)
[2019-08-22] MEDS: Atorvastatin Calcium 40 MG TAB PO SCH (20:57)
--- NOTE | 2019-08-23 00:08 | PRG ---
DATE OF SERVICE: 08/22/2019 SUBJECTIVE: The patient remains in the Oncology floor. The patient we are seeing in consultation for suspected gangrenous gallbladder resulting in recent sepsis. The patient is scheduled to undergo laparoscopic cholecystectomy tomorrow. She is currently n.p.o. and has no complaints at this time. PHYSICAL EXAMINATION: VITAL SIGNS: Stable. The patient is afebrile. GENERAL: The patient is resting comfortably in bed. She is awake, alert, and conversant. Again, has no complaints at this time. RESPIRATIONS: Nonlabored. ABDOMEN: Soft and nontender with hypoactive bowel sounds. ASSESSMENT: 1. Acute cholecystitis with possible gallbladder wall perforation and contained fluid collection. 2. Recent Escherichia coli bacteremia, likely secondary to gangrenous cholecystitis with perforation as well as concomitant Escherichia coli urinary tract infection. 3. History of stage IV metastatic small cell carcinoma of the lung with brain metastasis. 4. Acute hyperglycemia. PLAN: Again, the patient will be made n.p.o. after midnight. She will undergo laparoscopic cholecystectomy tomorrow morning. We will continue to follow postoperatively. Job ID: [id number]
[2019-08-23] MEDS: Levothyroxine Sodium 50 MCG TAB PO SCH (05:33)
[2019-08-23] MEDS: Cefepime 2 GM in Sodium Chloride 0.9% 100 ML IVPB SCH ×3 (05:34→21:12)
[2019-08-23 05:47] LABS: #Lymphocytes 0.8 thou/uL (1.20-3.40); #Monocytes 0.5 thou/uL (0.11-0.59); #Neutrophils 5.5 thou/uL (1.40-6.50); %Basophils 0.1 % (0.0-1.0); %Eosinophils 0.1 % (0.0-10.0); %Lymphocytes 12.2 % (21.0-51.0); %Monocytes 7.1 % (0.0-10.0); %Neutrophils 80.5 % (42.0-75.0); Hemoglobin 12.5 g/dL (12.0-16.0); Mean Corpuscular Hemoglobin 30.6 pg (27.0-31.0); Mean Corpuscular Volume 92.7 fL (78.0-98.0); Mean Platelet Volume 7.3 fL (7.4-10.4); Platelet Count 162 thou/uL (130-400); RBC Distribution Width 14.2 % (11.5-14.5); Red Blood Cell (RBC) Count 4.08 mill/uL (4.20-5.40); White Blood Cell (WBC) Count 6.8 thou/uL (4.8-10.8)
[2019-08-23] MEDS ORDERED: Levothyroxine Sodium 25 MCG TAB PO SCH (06:00)
[2019-08-23 06:02] LABS: ALT (SGPT) 62 U/L (8-55); AST (SGOT) 20 U/L (5-34); Albumin 3.2 g/dL (3.4-4.8); Alkaline Phosphatase 196 U/L (40-110); Anion Gap 14 mmol/L (10-20); BUN (Urea Nitrogen) 10 mg/dL (9.8-20.1); Bilirubin, Total 0.5 mg/dL (0.2-1.2); Calc. Creatinine Clearance 90 mL/min (70-130); Calcium 8.8 mg/dL (7.8-10.44); Carbon Dioxide 26 mmol/L (23-31); Chloride 102 mmol/L (98-107); Estimated GFR-MDRD Greater than 90; Glucose 169 mg/dL (80-115); Potassium 3.8 mmol/L (3.5-5.1); Protein, Total 5.2 g/dL (6.0-8.3); Sodium 138 mmol/L (136-145)
[2019-08-23] MEDS ORDERED: Insulin Glargine 25 UNITS in Pre-Filled Syringe 1 EACH SC SCH (06:27)
--- NOTE | 2019-08-23 06:44 | PDOC.FM ---
- Subjective Subjective: NAEO. Patient feeling well, no abd pain, no fevers or chills Plan for lap yefri today - Objective MAR Reviewed: Yes Vital Signs & Weight: Vital Signs (12 hours) Temp Pulse Resp BP Pulse Ox 08/23/19 04:09 98.6 F 97 16 127/60 94 L 08/23/19 00:01 98.5 F 64 16 129/61 95 08/22/19 19:51 98.5 F 70 18 104/60 95 Weight Admit Weight 67.585 kg Weight 67.8 kg Most Recent Monitor Data Heart Rate from ECG 82 NIBP 114/70 NIBP BP-Mean 84 Respiration from ECG 19 SpO2 100 I&O: 08/21/19 08/22/19 08/23/19 06:59 06:59 06:59 Intake Total 2020 600 1110 Output Total 1300 1602 451 Balance 721 -1002 659 Result Diagrams: 08/23/19 05:23 08/23/19 05:23 Phys Exam - Physical Examination Constitutional: NAD HEENT: moist MMs, sclera anicteric no respiratory distress Cardiovascular: RRR, no significant murmur Gastrointestinal: soft, non-tender, no distention Musculoskeletal: no edema Neurological: non-focal, moves all 4 limbs Psychiatric: normal affect, A&O x 3 Dx/Plan (1) High anion gap metabolic acidosis Code(s): E87.2 - ACIDOSIS Status: Acute (2) Hyperglycemia Code(s): R73.9 - HYPERGLYCEMIA, UNSPECIFIED Status: Acute (3) Septic shock due to urinary tract infection Code(s): A41.9 - SEPSIS, UNSPECIFIED ORGANISM; R65.21 - SEVERE SEPSIS WITH SEPTIC SHOCK; N39.0 - URINARY TRACT INFECTION, SITE NOT SPECIFIED Status: Acute (4) Transaminitis Code(s): R74.0 - NONSPEC ELEV OF LEVELS OF TRANSAMNS & LACTIC ACID DEHYDRGNSE Status: Acute (5) Brain metastasis Code(s): C79.31 - SECONDARY MALIGNANT NEOPLASM OF BRAIN Status: Chronic (6) Hypothyroidism Code(s): E03.9 - HYPOTHYROIDISM, UNSPECIFIED Status: Chronic (7) Small cell carcinoma of right lung Code(s): C34.91 - MALIGNANT NEOPLASM OF UNSP PART OF RIGHT BRONCHUS OR LUNG Status: Chronic - Plan Plan: Septic Shock 2/2 UTI: -T 101, tachypnea, tachycardia, and hypotension as low as 54/38 s/p R femoral central line and BP improved with Levophed. -UCx with pansensitive E.Coli, BPs gram negative rods, most likely E.coli- continue cefepime pending sensitivities -Initial requirement of levophed to maintain MAPs but now has been maintaining BPs for several hours -Continue IV Abx, can transition PO after surgery E. Coli bacteremia 2/2 Gangrenous GB/UTI -Bcx: E.coli, UCx: E.Coli -from UTI vs. 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 COPD: -home inhalers. Does not appear to be in exacerbation. Hypothyroidism: -TSH 8, T4 0.89 -Subclinical hypothyroidism, after med rec, turns out she is taking 75mcg, not 50, willl make adjustments today Stage IV Small Cell Lung Cancer on Palliative Chemo: -continue home steroids for brain mets and mass effect -consult palliative care -notified Dr. Chahal 08/22: -PO transition abx s/p surgery when tolerating PO. Continue IV cefepime for now. -Inc Lantus from 20 to 25 units qhs, sliding scale. CM. DM2 education -Lap yefri planned for 08/22 Dispo: Stable, fci prognosis guarded DVT PPx: Lovenox GI PPx: Pepcid Lines: Right femoral line removed 08/21 Abx: Cefepime (08/19) Fluid: SL Diet: ADA, ADAT Pressors: Off of levophed Disucssed with Dr. Ha Addendum - Attending - Attending Attestation Date/Time: 08/23/19 1152 I personally evaluated the patient and discussed the management with Dr. Rhodes. I agree with the History, Examination, Assessment and Plan documented above with any addition or exceptions noted below. Patient overall stable, going for lap yefri today. Continue IV abx for bacteremia. CPT downtrending nicely. Continue glycemic control.
[2019-08-23] MEDS: Mometasone 200 MCG/Formoterol 5 MCG 120 PUFF INHALER INH SCH ×2 (06:51→18:37)
[2019-08-23] MEDS: Dronabinol 2.5 MG CAP PO SCH ×2 (08:14→16:06)
[2019-08-23] MEDS: Dexamethasone 1 MG TAB PO SCH ×2 (08:15→16:21)
[2019-08-23] MEDS: Enoxaparin Sodium 40 MG/0.4 ML SYRINGE SC SCH (08:15)
[2019-08-23] MEDS: levETIRAcetam 500 MG TAB PO SCH ×2 (08:15→21:11)
[2019-08-23] MEDS ORDERED: Glycopyrrolate 0.2 MG/ML 5 ML SYRINGE ONE (08:22)
[2019-08-23] MEDS ORDERED: PHENYLEPHRINE-NS 100 MCG/ML 10 ML SYRINGE ONE (08:22)
[2019-08-23] MEDS ORDERED: Rocuronium Bromide 10 MG/ML (10ML VIAL) ONE (08:22)
[2019-08-23] MEDS ORDERED: Ondansetron PF 4 MG/2 ML Vial ONE (08:22)
[2019-08-23] MEDS ORDERED: PROPOFOL 200 MG/20 ML VIAL ONE (08:22)
[2019-08-23] MEDS ORDERED: Lidocaine 1% PF 5 ML VIAL ONE (08:22)
[2019-08-23] MEDS ORDERED: Dexamethasone 20 MG/5 ML VIAL ONE (08:22)
[2019-08-23] MEDS ORDERED: Levothyroxine Sodium 50 MCG TAB PO SCH (08:35)
[2019-08-23] MEDS ORDERED: Bupivacaine 0.25% HCL 30 ML VIAL ONE (08:54)
[2019-08-23] MEDS ORDERED: Lidocaine 1% w/Epinephrine 1:100K 20 ML VIAL ONE (08:54)
[2019-08-23] MEDS ORDERED: Fentanyl 100 MCG/2 ML VIAL ONE (10:16)
[2019-08-23] MEDS ORDERED: traMADol HCl 50 MG TAB PO PRN ×2 (13:07)
--- NOTE | 2019-08-23 13:25 | EKG ---
Test Reason : ER Blood Pressure : / mmHG Vent. Rate : 116 BPM Atrial Rate : 116 BPM P-R Int : 118 ms QRS Dur : 072 ms QT Int : 274 ms P-R-T Axes : 071 009 020 degrees QTc Int : 380 ms Sinus tachycardia Low voltage QRS Nonspecific ST and T wave abnormality Abnormal ECG Confirmed by SANTOS SPRAGUE ([id number]), manager editorial LACI CHAVEZ ([id number]) on 08/23/2019 1:25:35 PM Referred By: Confirmed By:SANTOS SPRAGUE
[2019-08-23] MEDS ORDERED: Ketorolac Tromethamine 30 MG/ML VIAL ONE (14:21)
[2019-08-23] MEDS: Acetaminophen 325 MG TAB PO SCH ×3 (14:44→21:11)
[2019-08-23] MEDS: HumaLOG 300 UNITS/3 ML VIAL SC PRN (16:22)
[2019-08-23] MEDS: Citalopram 10 MG TAB PO SCH (21:11)
[2019-08-23] MEDS: Atorvastatin Calcium 40 MG TAB PO SCH (21:11)
--- NOTE | 2019-08-23 23:37 | PRG ---
DATE OF SERVICE: 08/23/2019 SUBJECTIVE: The patient remains on the oncology floor. We are seeing in consultation for a suspected gangrenous gallbladder resulting in recent sepsis. Today, she underwent laparoscopic cholecystectomy, which she tolerated well. At the time of my visit, she was tolerating a diet. Her pain was controlled and she was ambulating within her room. She denied any nausea at this time. She feels that she has passed a small amount of flatus. PHYSICAL EXAMINATION: VITAL SIGNS: Stable. The patient is afebrile. GENERAL: The patient is resting comfortably in bed. She is awake, alert, conversant, and appropriate. ABDOMEN: Soft, minimally tender, primarily around her port site. She has hypoactive bowel sounds. No gross peritoneal signs. Her YVETTE drain has approximately 50 mL of bloody fluid with a slight green tinge. ASSESSMENT/PLAN: 1. Status post laparoscopic cholecystectomy for acute cholecystitis with possible gallbladder wall perforation and contained fluid collection. 2. Recent E. coli bacteremia, likely secondary to gangrenous cholecystitis with perforation as well as concomitant E. coli urinary tract infection. 3. History of stage IV metastatic small cell carcinoma of the lung with brain metastasis. 4. Acute hyperglycemia, being managed by the primary team. PLAN: Will be to continue supportive care. Encourage out of bed. She is to be on a full-liquid diet, which we will reassess tomorrow. If possible, advance her at that time. We will also continue to monitor YVETTE outflow. Job ID: [id number]
[2019-08-24] MEDS: Acetaminophen 325 MG TAB PO SCH ×4 (03:13→12:08)
[2019-08-24] MEDS: Cefepime 2 GM in Sodium Chloride 0.9% 100 ML IVPB SCH ×2 (05:19→13:54)
[2019-08-24] MEDS ORDERED: Levothyroxine Sodium 75 MCG TAB PO SCH (06:00)
[2019-08-24 06:18] LABS: ALT (SGPT) 66 U/L (8-55); AST (SGOT) 39 U/L (5-34); Albumin 2.9 g/dL (3.4-4.8); Alkaline Phosphatase 180 U/L (40-110); Anion Gap 14 mmol/L (10-20); BUN (Urea Nitrogen) 12 mg/dL (9.8-20.1); Bilirubin, Total 0.7 mg/dL (0.2-1.2); Calc. Creatinine Clearance 102 mL/min (70-130); Calcium 8.5 mg/dL (7.8-10.44); Carbon Dioxide 19 mmol/L (23-31); Chloride 104 mmol/L (98-107); Estimated GFR-MDRD Greater than 90; Globulin 2.6 g/dL (2.4-3.5); Glucose 62 mg/dL (80-115); Potassium 4.1 mmol/L (3.5-5.1); Protein, Total 5.5 g/dL (6.0-8.3); Sodium 133 mmol/L (136-145)
[2019-08-24 06:34] LABS: #Lymphocytes 1.1 thou/uL (1.20-3.40); #Monocytes 0.7 thou/uL (0.11-0.59); %Basophils 0.4 % (0.0-1.0); %Eosinophils 0.1 % (0.0-10.0); %Lymphocytes 16.3 % (21.0-51.0); %Monocytes 9.7 % (0.0-10.0); %Neutrophils 73.4 % (42.0-75.0); Hemoglobin 11.9 g/dL (12.0-16.0); Mean Corpuscular HGB CONC 32.2 g/dL (32.0-36.0); Mean Corpuscular Hemoglobin 30.4 pg (27.0-31.0); Mean Corpuscular Volume 94.2 fL (78.0-98.0); Mean Platelet Volume 7.4 fL (7.4-10.4); Platelet Count 184 thou/uL (130-400); RBC Distribution Width 14.4 % (11.5-14.5); Red Blood Cell (RBC) Count 3.93 mill/uL (4.20-5.40); White Blood Cell (WBC) Count 6.8 thou/uL (4.8-10.8)
--- NOTE | 2019-08-24 07:08 | PDOC.FM ---
- Subjective Subjective: Doing well today, tolerating liquid diet well. Pain controlled. No fever, chills , n/v. - Objective MAR Reviewed: Yes Vital Signs & Weight: Vital Signs (12 hours) Temp Pulse Resp BP Pulse Ox 08/23/19 20:16 98.8 F 60 16 116/57 L 95 Weight Admit Weight 67.585 kg Weight 67.8 kg Most Recent Monitor Data Heart Rate from ECG 82 NIBP 114/70 NIBP BP-Mean 84 Respiration from ECG 19 SpO2 100 I&O: 08/23/19 08/24/19 08/25/19 06:59 06:59 06:59 Intake Total 1110 1090 Output Total 451 250 Balance 659 840 Result Diagrams: 08/24/19 06:22 08/24/19 05:37 Phys Exam - Physical Examination Constitutional: NAD HEENT: moist MMs, sclera anicteric no respiratory distress Gastrointestinal: soft, non-tender, no distention, positive bowel sounds Dx/Plan (1) High anion gap metabolic acidosis Code(s): E87.2 - ACIDOSIS Status: Acute (2) Hyperglycemia Code(s): R73.9 - HYPERGLYCEMIA, UNSPECIFIED Status: Acute (3) Septic shock due to urinary tract infection Code(s): A41.9 - SEPSIS, UNSPECIFIED ORGANISM; R65.21 - SEVERE SEPSIS WITH SEPTIC SHOCK; N39.0 - URINARY TRACT INFECTION, SITE NOT SPECIFIED Status: Acute (4) Transaminitis Code(s): R74.0 - NONSPEC ELEV OF LEVELS OF TRANSAMNS & LACTIC ACID DEHYDRGNSE Status: Acute (5) Brain metastasis Code(s): C79.31 - SECONDARY MALIGNANT NEOPLASM OF BRAIN Status: Chronic (6) Hypothyroidism Code(s): E03.9 - HYPOTHYROIDISM, UNSPECIFIED Status: Chronic (7) Small cell carcinoma of right lung Code(s): C34.91 - MALIGNANT NEOPLASM OF UNSP PART OF RIGHT BRONCHUS OR LUNG Status: Chronic - Plan Plan: Septic Shock 2/2 UTI: -T 101, tachypnea, tachycardia, and hypotension as low as 54/38 s/p R femoral central line and BP improved with Levophed. -UCx with pansensitive E.Coli, BPs gram negative rods, most likely E.coli- continue cefepime pending sensitivities -Initial requirement of levophed to maintain MAPs but now has been maintaining BPs for several hours -Continue IV Abx, can transition PO after surgery E. Coli bacteremia 2/2 Gangrenous GB/UTI -Bcx: E.coli, UCx: E.Coli -from UTI vs. 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 COPD: -home inhalers. Does not appear to be in exacerbation. Hypothyroidism: -TSH 8, T4 0.89 -Subclinical hypothyroidism, after med rec, turns out she is taking 75mcg, not 50, willl make adjustments today Stage IV Small Cell Lung Cancer on Palliative Chemo: -continue home steroids for brain mets and mass effect -consult palliative care -notified Dr. Chahal 08/23: -PO transition abx s/p surgery when tolerating PO. Will send home on cefdinir for 10 days in duration. -Inc Lantus from 20 to 25 units qhs, sliding scale. CM. DM2 education -Lap yefri 08/22, gen surg on board Dispo: Stable, d/c pending gen surg sign off. DVT PPx: Lovenox GI PPx: Pepcid Lines: Right femoral line removed 08/21, YVETTE drain Abx: Cefepime (08/19) Fluid: SL Diet: ADA, ADAT Pressors: Off of levophed Disucssed with Dr. Ha Addendum - Attending - Attending Attestation Date/Time: 08/24/19 1206 I personally evaluated the patient and discussed the management with Dr. Rhodes. I agree with the History, Examination, Assessment and Plan documented above with any addition or exceptions noted below. Patient doing well. She is tolerating diet without issue. Surgery has cleared for dc home today. Will complete 10 day course of abx for E. coli bacteremia. PCT reassuring that she is recovered successfully from her infection. She may be going with hospice services once she is at home.
[2019-08-24] MEDS: Mometasone 200 MCG/Formoterol 5 MCG 120 PUFF INHALER INH SCH (07:24)
[2019-08-24 07:59] VITALS: BP 104/56; TEMP 98.7
[2019-08-24] MEDS: Dronabinol 2.5 MG CAP PO SCH (08:53)
[2019-08-24] MEDS: Dexamethasone 1 MG TAB PO SCH (08:54)
[2019-08-24] MEDS: levETIRAcetam 500 MG TAB PO SCH (08:55)
[2019-08-24] MEDS: Enoxaparin Sodium 40 MG/0.4 ML SYRINGE SC SCH (08:55)
--- NOTE | 2019-08-24 09:43 | PRG ---
DATE OF SERVICE: 08/24/2019 SUBJECTIVE: Ms. Burnett is a 68-year-old woman who is postop day #1, status post laparoscopic cholecystectomy. The patient is awake and alert this morning. She reports adequate pain control. She is tolerating diet. She is passing flatus. Urinary output is adequate for the patient's age and weight. OBJECTIVE: VITAL SIGNS: Include blood pressure 104/56, pulse is 69, respiratory rate is 18, temperature 98.7 degrees Fahrenheit, oxygen saturation is 94% on room air. ABDOMEN: Soft and nondistended. Incisions are intact, clean, dry with minimal incisional tenderness to palpation. She clearly has no peritoneal signs on examination. Bob-Moore drain returns moderate amount of serous fluid. The Bob-Moore drain was removed without incident. No active bleeding at the site present. LABORATORY FINDINGS: Today include a CBC with 6800 white blood cells, hemoglobin and hematocrit stable at 11.9 and 37.0 respectively. The platelet count is 184,000. Metabolic profile; sodium 133, potassium 4.1, chloride is 104, bicarb is 19, BUN 12, creatinine 0.55, glucose 62, total bilirubin is 0.7, AST and ALT 39 and 66 respectively. Alkaline phosphatase is 180. IMPRESSION: Postop day #1, status post laparoscopic cholecystectomy. The patient is hemodynamically stable. No further surgical indication at this time. The patient may be discharged home at the discretion of Primary Service to follow up with me in the clinic in 2 weeks. Job ID: [id number]
--- NOTE | 2019-08-24 17:26 | DIS ---
DATE OF ADMISSION: 08/20/2019 DATE OF DISCHARGE: 08/24/2019 ADMITTING ATTENDING: Handy Armstrong MD DISCHARGE ATTENDING: Сергей Ha MD RESIDENT: Clarisse Rhodes, PGY-2. CONSULTS: 1. General Surgery, Dr. Franco. 2. Palliative Care. 3. Hospice. 4. Pulmonology, Dr. Dean. PRIMARY DIAGNOSES: 1. Septic shock secondary to Escherichia coli bacteremia from gangrenous gallbladder versus urinary tract infection. 2. Gangrenous gallbladder with perforation, status post laparoscopic cholecystectomy. 3. Transaminitis secondary to gangrenous perforated gallbladder versus Keytruda. 4. COVID negative. 5. New onset insulin-dependent diabetes mellitus type 2. SECONDARY DIAGNOSES: 1. 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 2. Long-term use of steroids for above. 3. Hypothyroidism. 4. Chronic obstructive pulmonary disease. 5. 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 IMAGIN. Chest x-ray, increased opacification of right hilum. Opacification of lung base, which may be aspiration pneumonia. 2. Chest CT, right lung mass suprahilar location. No evidence of ground-glass opacification or peripheral ground-glass opacification. Narrowing of the proximal right upper lobe bronchus. 3. Abdominal ultrasound finding suspicious for acute calculous cholecystitis. Pericholecystic fluid around the superior margin of the gallbladder with small contained perforation. Small pericholecystic abscess. DISCHARGE MEDICATIONS: New home medications: 1. Lantus 25 units subcu q.h.s. 2. Cefdinir 300 mg p.o. q.12 hours for 7 more days. 3. Synthroid 75 mcg p.o. daily q.a.m. Resume home medications. 1. Marinol 2.5 mg p.o. b.i.d. a.c. 2. Keppra 1000 mg p.o. b.i.d. 3. Decadron 4 mg p.o. q.i.d. 4. Memantine 10 mg p.o. b.i.d. 5. Protonix 40 mg p.o. daily. 6. Atorvastatin 40 mg p.o. q.h.s. 7. Aspirin 81 mg p.o. daily. 8. Zofran 8 mg p.o. q.8 hours p.r.n. for nausea and vomiting. 9. Compazine 10 mg p.o. q.8 hours p.r.n. for nausea. 10. Vitamin B12 of 1000 mcg IM q.28 days. 11. Celexa 10 mg p.o. q.h.s. 12. Ventolin 2 puffs inhaled q.4 hours p.r.n. for shortness of breath or wheezing. 13. MiraLAX. 14. Dulera 200 mcg/5 mcg inhaler 2 puffs inhaled b.i.d. 15. Tessalon Perles 100 mg p.o. t.i.d. p.r.n. for cough. DISCONTINUED MEDICATIONS: Synthroid 50 mcg p.o. daily. HISTORY OF PRESENT ILLNESS AND HOSPITAL COURSE: A 68-year-old female with history of stage IV small cell lung cancer with metastasis to the brain, who presented to the ER for weakness and acute encephalopathy. She was found to be in septic shock secondary to suspected UTI requiring insertion of central line and pressors. She was admitted to the ICU and started on antibiotics. She quickly improved the next day and was weaned off pressors. Blood cultures grew out E coli. Due to transaminitis, right upper quadrant ultrasound was obtained, which showed signs of cholecystitis with gallbladder perforation and contained abscess. General Surgery was consulted and she underwent laparoscopic cholecystectomy in which a gangrenous gallbladder was discovered. It is likely that the E coli bacteremia was more likely due to the gallbladder than it was the UTI since she has just been recently treated for that. Clinically, the patient improved and will be sent home to complete a p.o. antibiotic course of cefdinir for 10 day course total duration. In addition, the patient was found to have new onset diabetes with an A1c of 11.3%, likely secondary to the chronic steroid she is on for brain metastasis. She was started on insulin. The patient desired to go home with hospice and so appropriate referral was made. She was sent home in stable condition and symptom free to continue her antibiotic course. It is important to continue insulin titration in the outpatient setting. DISPOSITION: Stable. DISCHARGE INSTRUCTIONS: 1. Location: Home with home hospice. 2. Activity: Ad anthony as tolerated. 3. Diet: Regular diet. FOLLOWUP: 1. Follow up with [facility]. 2. Please follow up with Dr. Chahal. 3. Please follow up with PCP Dr. Monae in 1 to 2 days. Job ID: [id number] MTDD
--- NOTE | 2019-08-25 13:10 | OP ---
DATE OF PROCEDURE: 08/23/2019 PREOPERATIVE DIAGNOSIS: Acute cholecystitis, cholelithiasis. POSTOPERATIVE DIAGNOSIS: Acute cholecystitis, cholelithiasis. PROCEDURE PERFORMED: Laparoscopic cholecystectomy. ANESTHESIA: General endotracheal. ESTIMATED BLOOD LOSS: 50 mL. COUNTS: Sponge and instrument counts were certified as correct x2. COMPLICATIONS: None apparent at the time of operation. INDICATIONS FOR OPERATION: A 68-year-old woman was admitted 3 days prior to surgery with abdominal pain associated with E coli bacteremia. Clinical radiographic examination was consistent with acute cholecystitis with cholelithiasis for which the patient was brought to the operating room for cholecystectomy. Findings are consistent with gallbladder in the usual anatomic location completely encased by omental adhesions. The back wall of the gallbladder also appeared necrotic. DESCRIPTION OF PROCEDURE: Informed consent was obtained from the patient, who was brought to the operating room and placed in supine position. Following general anesthesia, the abdomen was sterilely prepped and draped in usual fashion. The skin below the umbilicus was infiltrated with 0.25% Marcaine with epinephrine. A small curvilinear infraumbilical incision was made using 11 scalpel. Umbilical stalk grasped with Bebeto and elevated. Veress needle was inserted through the incision and placed in the peritoneal cavity through which the abdomen was insufflated with 3 L of CO2 gas. Intraabdominal pressure noted at 2 mmHg. Following abdominal insufflation, Veress needle was removed and a 5-mm trocar introduced using a Visiport under laparoscopy. Laparoscopy confirmed proper placement of the port. No injuries to underlying structures. Additional laparoscopy reveals the right upper quadrant completely obscured by omental adhesions. Under the laparoscopy, a 12-mm epigastric and two 5-mm right lateral subcostal ports were placed after the overlying skin were infiltrated with 0.25% Marcaine with epinephrine and appropriate incision was made. The patient was placed in a reverse Trendelenburg position, rotated to her left. I introduced a [place] dissector with cautery using this to take down omental adhesions off the edge of the liver, allowing visualization of the fundus of the gallbladder. Prestige grasper introduced through the right lateral subcostal port grasping the fundus of the gallbladder, which was elevated cephalad. Omental adhesions were then bluntly taken down from remainder of the gallbladder. A second Prestige grasper introduced through the right medial subcostal port grasping the Sameer's pouch, which was retracted laterally. Peritoneum of the gallbladder was opened at the gallbladder neck. The node of Calot was readily identified. The cystic duct was carefully dissected free from surrounding structures as critical view of the cystic duct and cystic artery were well visualized. The cystic artery having been dissected free from surrounding structures was divided high at the gallbladder between clips applying 2 clips proximally and one clip at the junction of the cystic artery and gallbladder. The cystic duct was also divided between clips in a similar fashion. Gallbladder itself was removed from the liver bed using cautery. This was delivered of the abdominal cavity using an Endo Catch. Gallbladder fossa was oozy of venous blood. Hemostasis was readily achieved using Chela. A #19 Mikal drain was introduced into the subhepatic space and allowed to exit the abdominal cavity through the right lateral subcostal port. The drain was secured to anterior abdominal wall using 2-0 silk suture. Finding no other pathology, laparoscopy was terminated. Fascia of the epigastric port closed using 0 Vicryl suture and Endoclosure device on the laparoscopy. The abdomen was desufflated. All ports and instruments removed and accounted for. Skin incisions were closed using 4-0 Monocryl suture in subcuticular fashion. Dermabond was applied over incisional closure. The patient tolerated the operation without any apparent complication and was returned to recovery room in satisfactory condition. Job ID: [id number]
== END 2019-08-24 14:37 | disposition hospice, home (50) | DRG 853 ==
LOC: ERS 15:37 → CCU 19:29 → ONC 08-22 09:58
PROVIDERS: ADMIT Family Medicine; ATTEND Family Medicine
PROC: 02HV33Z Insertion of Infusion Device into Superior Vena Cava, Percutaneous Approach (ICD-10-PCS; principal; 2019-08-20)
PROC: 3E0234Z Introduction of Serum, Toxoid and Vaccine into Muscle, Percutaneous Approach (ICD-10-PCS; 2019-08-20)
PROC: 0FT44ZZ Resection of Gallbladder, Percutaneous Endoscopic Approach (ICD-10-PCS; 2019-08-23)
DX: A41.51 Sepsis due to Escherichia coli [E. coli] (principal); R65.21 Severe sepsis with septic shock; G93.6 Cerebral edema; N39.0 Urinary tract infection, site not specified; C34.90 Malignant neoplasm of unspecified part of unspecified bronchus or lung; C79.31 Secondary malignant neoplasm of brain; E87.2 Acidosis; R64 Cachexia; K80.01 Calculus of gallbladder with acute cholecystitis with obstruction; G93.40 Encephalopathy, unspecified; Z51.5 Encounter for palliative care; Z66 Do not resuscitate; Z20.828 Contact with and (suspected) exposure to other viral communicable diseases; D64.9 Anemia, unspecified; J44.9 Chronic obstructive pulmonary disease, unspecified; E03.9 Hypothyroidism, unspecified; K82.A1 Gangrene of gallbladder in cholecystitis; E11.65 Type 2 diabetes mellitus with hyperglycemia; T45.1X5A Adverse effect of antineoplastic and immunosuppressive drugs, initial encounter; R74.0 Nonspecific elevation of levels of transaminase and lactic acid dehydrogenase [LDH]; Z79.4 Long term (current) use of insulin; Z79.52 Long term (current) use of systemic steroids; Z88.1 Allergy status to other antibiotic agents; Z79.51 Long term (current) use of inhaled steroids; Z79.899 Other long term (current) drug therapy; Z79.890 Hormone replacement therapy; Z90.710 Acquired absence of both cervix and uterus; Z90.49 Acquired absence of other specified parts of digestive tract; Z87.891 Personal history of nicotine dependence; Z68.24 Body mass index [BMI] 24.0-24.9, adult
CPT/HCPCS: 36415; 36416; 36556; 51701; 71045; 71250; 76705; 80053; 80074; 80177; 80202; 81003; 81015; 82010; 82728; 82805; 83036; 83605; 83615; 84145; 84439; 84443; 84481; 84484; 85025; 85379; 85610; 85652; 85730; 86140; 86850; 86900; 86901; 87040; 87077; 87086; 87149; 87186; 87205; 87635; 87804; 88304; 93005; 94760; 96365; 96367; A4353; J0692; J0696; J1100; J1650; J1815; J1885; J2001; J2405; J2704; J3010; J3370; J3490; J7050; J8540; Q0167; S0020; U0002